=== PATIENT | female | born 1945 | race Caucasian/White ===

== ENCOUNTER 2019-01-13 07:11 | Inpatient (IN) ==
[2019-01-13] MEDS ORDERED: ACETAMINOPHEN 325 MG TAB PO PRN (10:14)
[2019-01-13] MEDS ORDERED: ONDANSETRON INJ 2 MG/ML 2 ML VIAL IV PRN (10:14)
[2019-01-13] MEDS ORDERED: SODIUM CHLORIDE 0.9% 1000ML 1,000 ML IV SCH ×2 (10:15→11:00)
[2019-01-13] MEDS ORDERED: PIPERACILL/TAZOBAC CONSULT ACTIVE PRN (10:17)
[2019-01-13] MEDS ORDERED: VANCOMYCIN CONSULT ACTIVE PRN (10:17)
[2019-01-13] MEDS ORDERED: VANCOMYCIN HCL 1,000 MG in SODIUM CHLORIDE 0.9% 250 ML IV SCH (10:30)
[2019-01-13] MEDS ORDERED: PIPERACILLIN/TAZOBACTAM 2.25 GM in DEXTROSE 5% 100 ML IV SCH (10:30)
[2019-01-13] MEDS ORDERED: PATIENT'S HEIGHT AND/OR WEIGHT NEEDED SCH (10:30)
[2019-01-13 11:02] LABS: Alanine Aminotransferase 18 U/L (12-78); Albumin Level 2.6 gm/dl (3.4-5.0); Aspartate Aminotransferase 30 U/L (15-37); BUN Creatinine Ratio 12.8 (10-20); Blood Urea Nitrogen 32 mg/dl (7-18); Calcium 10.2 mg/dl (8.5-10.1); Carbon Dioxide 21 mmol/L (21-32); Chloride 109 mmol/L (98-107); Est GFR (African American) 21.5; Est GFR (Non-African American) 18.6; Glucose 132 mg/dl (70-99); INR 1.3 (0.9-1.1); Partial Thromboplastin Ratio 1.2; Partial Thromboplastin Time 33.2 Seconds (21.0-31.0); Potassium 3.1 mmol/L (3.5-5.1); Prothrombin Time 13.4 Seconds (9.0-12.0); Sodium 141 mmol/L (136-145)
[2019-01-13 11:05] LABS: Albumin Globulin Ratio 0.7 (0.9-2); Alkaline Phosphatase 226 U/L (45-117); Bilirubin,Total 0.5 mg/dl (0.2-1); Globulin 3.7 gm/dl (2.5-4.0); Total Protein 6.4 gm/dl (6.4-8.2)
[2019-01-13 11:08] LABS: ALC (manual) 0.58 K/uL (1.2-3.4); Eosinophils # (manual) 0.15 K/uL (0-0.5); Eosinophils % (manual) 0.9 %; Hematocrit (blood only) 36.9 % (37-47); Hemoglobin 12.4 g/dL (12.0-16.0); Lymphocytes # (manual) 0.58 K/uL (1.2-3.4); Lymphocytes % (manual) 3.5 %; Mean Corpuscular Hgb Conc 33.6 g/dL (32-36); Mean Corpuscular Volume 86.6 fL (80-100); Mean Platelet Volume 10.7 fL (7.4-10.4); Monocytes # (manual) 0.43 K/uL (0.11-0.59); Monocytes % (manual) 2.6 %; Platelet Count 50 K/uL (130-400); Platelet Estimate Decreased (Normal); RDW Coefficient of Variation 14.5 % (11.5-14.5); RDW Standard Deviation 45.8 fL (36.4-46.3); Red Blood Count 4.26 M/uL (4.2-5.4); White Blood Count 16.67 K/uL (4.8-10.8)
[2019-01-13 11:09] LABS: Toxic Vacuolation 3+
--- NOTE | 2019-01-13 11:16 | History & Physical Report ---
Date of Service January 13, 2019 Assessment & Plan (1) Severe sepsis: due to UTI, will need to call [facility] tomorrow for urine and blood culture results evidence of organ failure with lactic acidosis, RATNA, hypotension treating aggressively with IV fluids already received total of 4L at [facility], will give 1 liter at 500cc/hr then NSS + 40 of K at 100cc/hr broad spectrum antibiotics with Zosyn, Levaquin, Vancomycin follow blood pressure closely, low threshold to transfer to ICU for pressors patient is mentating fine and MAP is > 65 repeat lactic acid at [address] for adequate UO (2) Lactic acidosis: due to severe sepsis and hypotension initially was 7.9, improved to 3.8 here will repeat at 1400 today (3) Acute kidney injury (nontraumatic): likely due to sepsis, could represent ATN given hypotension most recent Cr is 2.5, was higher at [facility] at 2.7 monitor electrolytes, K low at 3.[address] no need to consult nephrology unless renal function gets worse (4) Hypoxia: acute respiratory failure with hypoxia ABG reportedly showed PaO2 of 58 and was placed on BIPAP normally wears a CPAP at night will continue BIPAP for now, check ABG at 1400 today try to wean off BIPAP during the day while awake per patient's brother she does not wear home oxygen, does not have COPD very well may have obesity hypoventilation (5) Hypokalemia: was low at 2.7 at [facility], given 30mEq of KCl here her K is 3.1 will add 40mEq of KCl to IV fluids, run at 100cc/hr (6) Hypotension: technically not shock since here BP improved with IV fluid challenge will continue to monitor closely if consistently hypotensive then may require vasopressors and ICU transfer (7) Sepsis due to urinary tract infection: see above under severe sepsis (8) Sleep apnea: normally on CPAP (9) Diabetes mellitus: Novolog SS diabetic diet once able to eat monitor for hypoglycemia History of Present Illness Chief Complaint: I feel lethargic Primary Care Provider: Dav Freeman MD 73 yo female with history of morbid obesity, DM type II, obstructive sleep apnea and several cases of UTI and pneumonia, transferred to [facility] from [facility] ED this morning due to signs of severe sepsis and UTI. Apparently she was seen in the ED at [facility] two days ago with symptoms of UTI. She was sent home on Macrobid. Last night her brother brought her to the hospital because she was lethargic, not eating well, had fevers and chills. Her urine was described as foul smelling. She was not reported to have any difficulty breathing. Note that most of the HPI obtained from records from [facility] and the patient's brother because the patient has BIPAP and cannot answer many questions. Patient had a WBC of 16k and Cr was 2.7. Lactic acid was elevated at 7.9. Patient was hypotensive and had aggressive IV hydration with 2L via bolus and then 2 more liters at 500mL/hr and 250mL/hr respectively. She responded well to IV fluids, BP in the 90's systolic and MAP without pressors was > 65. Repeat labs showed lactic acid down to the 3.7 range but Cr was not really improving. K was low at 2.7, given 30mEq of KCl. Magnesium was low and treated with 2gm IV Magnesium. Treated with Rocephin, Vancomycin and then Primaxin IV in the ED. Cultures obtained. A CT of the abdomen/pelvis without contrast done, lots of motion so difficult to read. There were some signs of possible pyelonephritis, could not rule out a distal ureteral stone due to motion. CXR showed atelectasis vs infiltrate. Due to renal failure and severe sepsis, [facility] requested transfer. Upon arrival the patient was stable on BIPAP, saturations in the 90's. HR in the 110-120 range, sinus tachycardia, BP 89-97 systolic, MAP were > 65. Had one peripheral IV site. No fever. STAT labs showed WBC was 16k, down from 21k earlier this morning. Lactic acid 3.8. Cr stable at 2.5, making adequate urine via adkins. K slightly low at 3.1. CXR with possible left lower lobe infiltrate and effusion, poor inspiratory effort. Allergies Allergy/AdvReac Type Severity Reaction Status Date / Time erythromycin base Allergy Unknown UPSET Verified 09/26/14 08:17 STOMACH lisinopril Allergy Unknown HIVES Verified 09/26/14 08:17 SWOLLEN LIPS prednisone Allergy Unknown THRUSH Verified 09/26/14 08:17 Home Medications Home Medications Medication Instructions Recorded Confirmed Type ASCORBIC ACID (VITAMIN C) 500 mg PO BID #0 09/26/14 01/13/19 History ASPIRIN (ASPIRIN EC) 81 mg PO QAM #0 09/26/14 01/13/19 History Alendronate/Cholecalciferol 1 tab PO FRIDAY #0 tab 09/26/14 01/13/19 History (Fosamax+D 70MG/2800 Iu) Amlodipine Besylate 5 mg PO HS #0 09/26/14 01/13/19 History CALCIUM CARBONATE-VITAMIN D 1 tab PO QAM #0 09/26/14 01/13/19 History (CALCIUM 500 + D) CHOLECALCIFEROL (VITAMIN D3) 2,000 unit PO QAM #0 09/26/14 01/13/19 History CYANOCOBALAMIN (VITAMIN B12 500MCG) 500 mcg PO QAM #0 tab 09/26/14 01/13/19 History FAMOTIDINE (PEPCID AC) 10 mg PO QAM #0 09/26/14 01/13/19 History Furosemide 20 mg PO QAM #0 09/26/14 01/13/19 History LORATADINE (ALLERGY RELIEF) 10 mg PO QAM #0 09/26/14 01/13/19 History LORAZEPAM 1 mg PO HS #0 09/26/14 01/13/19 History MECLIZINE HCL 25 mg PO QAM #0 09/26/14 01/13/19 History Metformin HCl 500 mg PO BID #0 09/26/14 01/13/19 History Multivitamin 1 tab PO DAILY #0 tab 09/26/14 01/13/19 History Pravastatin Sod (Pravastatin 20 mg PO HS #0 09/26/14 01/13/19 History Sodium) Ropinirole (Requip) 0.5 mg PO HS #0 tab 09/26/14 01/13/19 History TRAVOPROST (TRAVATAN Z) 1 drp OPB HS #0 09/26/14 01/13/19 History Timolol Maleate 0.5% Oph (Timoptic 1 drp OPB BID #0 09/26/14 01/13/19 History 0.5% Oph) Tramadol HCl BID PRN #0 09/26/14 History VITAMIN E 400 intunit PO QAM #0 09/26/14 01/13/19 History Past Med/Surg History Medical History Anxiety Congestive heart failure Diabetes mellitus, type 2 Glaucoma Osteoarthritis Pneumonia Urinary tract infection Surgical History History of cardiac cath History of cataract surgery History of esophagogastroduodenoscopy (EGD) History of herniorrhaphy History of repair of rotator cuff History of total knee replacement Social History Preferred Language: Libyan Communication Ability: Effective Beliefs That Will Affect Care: None Feels Safe at Home: Yes Safety Concerns: Feels Safe At This Time Smoking Status: Never smoker Hx Alcohol Use: No Hx Substance Use: No Review of Systems Review of Systems: Other (unable due to BIPAP, not speaking much) Physical Exam Constitutional: WD/WN, vitals as above + ill appearing, + in distress and + overweight Eyes: PERRL, conjunctivae normal, anicteric sclerae ENMT: external ear and nose normal, oropharynx normal Neck: trachea midline, no thyromegaly Respiratory: + respiratory distress and + labored breathing Auscultation: + diminished lung sounds and + crackles (left base); no rales, no rhonchi and no wheezes Cardiovascular: Rate/Rhythm: regular rhythm and + tachycardic Heart Sounds: normal S1 and normal S2; no murmur Vessels: no JVD Extremities: no edema Gastrointestinal (Abdomen): normal bowel sounds, soft, nontender, no hepatosplenomegaly Musculoskeletal: no cyanosis or clubbing, extremities motor strength 5/5 Skin: no rashes, warm and dry Neurologic: patellar DTR's 2+ bilat, sensation intact and PERRL, EOMI, accommodation nl, no face palsy, no dysarthria Psychiatric: A+Ox3, euthymic affect Lymphatic: no cervical or axillary lymphadenopathy Results & Data Vital Signs (Past 12 Hours) Vital Signs Pulse Resp Pulse Ox 01/13/19 10:28 120 H 43 H 95 Laboratory Results Laboratory Results - last 24 hr 01/13/19 01/13/19 01/13/19 10:29 10:29 10:29 WBC 16.67 H RBC 4.26 Hgb 12.4 Hct 36.9 L MCV 86.6 MCH 29.1 MCHC 33.6 RDW Std Deviation 45.8 RDW Coeff of Fern 14.5 Plt Count 50 L MPV 10.7 H Neutrophils % (Manual) 93.0 Lymphocytes % (Manual) 3.5 Monocytes % (Manual) 2.6 Eosinophils % (Manual) 0.9 Neutrophils # (Manual) 15.50 H Total Absolute Neuts 15.50 H Lymphocytes # (Manual) 0.58 L Total Abs Lymphocytes 0.58 L Monocytes # (Manual) 0.43 Eosinophils # (Manual) 0.15 Blood Smear Review Pending Toxic Vacuolation 3+ Platelet Estimate Decreased L PT INR APTT PTT Ratio Sodium 141 Potassium 3.1 L Chloride 109 H Carbon Dioxide 21 Anion Gap 11.0 BUN 32 H Creatinine 2.50 H Est Cr Clr Drug Dosing Not Reportable Est GFR ( Amer) 21.5 Est GFR (Non-Af Amer) 18.6 BUN/Creatinine Ratio 12.8 Glucose 132 H Lactate 3.8 H* Calcium 10.2 H Total Bilirubin 0.5 AST 30 ALT 18 Alkaline Phosphatase 226 H Total Protein 6.4 Albumin 2.6 L Globulin 3.7 Albumin/Globulin Ratio 0.7 L 01/13/19 10:29 WBC RBC Hgb Hct MCV MCH MCHC RDW Std Deviation RDW Coeff of Fern Plt Count MPV Neutrophils % (Manual) Lymphocytes % (Manual) Monocytes % (Manual) Eosinophils % (Manual) Neutrophils # (Manual) Total Absolute Neuts Lymphocytes # (Manual) Total Abs Lymphocytes Monocytes # (Manual) Eosinophils # (Manual) Blood Smear Review Toxic Vacuolation Platelet Estimate PT 13.4 H INR 1.3 H APTT 33.2 H PTT Ratio 1.2 Sodium Potassium Chloride Carbon Dioxide Anion Gap BUN Creatinine Est Cr Clr Drug Dosing Est GFR ( Amer) Est GFR (Non-Af Amer) BUN/Creatinine Ratio Glucose Lactate Calcium Total Bilirubin AST ALT Alkaline Phosphatase Total Protein Albumin Globulin Albumin/Globulin Ratio Diagnostic Findings SINGLE VIEW CHEST CLINICAL HISTORY: Hypoxia. Pneumonia. FINDINGS: An AP, portable, upright chest radiograph is obtained. No prior studies are available for comparison at the time of dictation. The examination is degraded by portable technique and patient rotation. The heart is enlarged and there is atherosclerotic calcification of the thoracic aorta. There is pulmonary vascular congestion. Patchy airspace consolidation is stable left lung base and there is a left pleural effusion. Trace pleural effusion is suspected on the right. No pneumothorax is seen. The skeletal structures are osteopenic. There are healed left-sided rib fractures. Advanced arthritic change is noted in the right shoulder. IMPRESSION: 1. Cardiomegaly with evidence of congestive failure. 2. There is patchy airspace consolidation at the left lung base and a left pleural effusion. Correlate clinically for evidence of superimposed pneumonia/aspiration pneumonitis. Radiographic follow-up to resolution is recommended. Medications Administered Current Inpatient Medications Acetaminophen (Tylenol) 650 mg PO Q4H PRN PRN Reason: Pain or Fever Stop: 02/12/19 10:13 Heparin Sodium (Porcine) (Heparin Sodium (Porcine)) 5,000 units SQ Q8 HINA Stop: 02/12/19 13:59 Piperacillin Sod/Tazobactam (Sod 2.25 gm/ Dextrose) 110 mls @ 27.5 mls/hr IV Q6H HINA; Protocol Stop: 01/23/19 10:29 Vancomycin HCl 1,000 mg/ (Sodium Chloride) 270 mls @ 125 mls/hr IV Q24H HINA Stop: 01/23/19 10:29 Levofloxacin/Dextrose (Levaquin/D5w) 750 mg in 150 mls @ 100 mls/hr IV Q48H HINA Stop: 01/20/19 10:44 Sodium Chloride (Nss 1000ml) 1,000 mls @ 500 mls/hr IV .Q2H HINA Stop: 01/13/19 12:59 Potassium Chloride 40 meq/ (Sodium Chloride) 1,020 mls @ 100 mls/hr IV .[id number] HINA Stop: 02/12/19 11:29 Insulin Aspart (Novolog Flexpen) 0 units SC ACHS HINA Stop: 02/12/19 11:29 Miscellaneous (Patient's Height And/Or Weight Needed) 1 ea N/A Q2H HINA Stop: 02/12/19 10:29 Miscellaneous Information (Consult) 1 ea N/A UD PRN PRN Reason: Consult Stop: 02/12/19 10:16 Miscellaneous Information (Consult) 1 ea N/A UD PRN PRN Reason: Consult Stop: 02/12/19 10:16 Nystatin (Mycostatin) 1 appln EXT Q8 HINA Stop: 02/12/19 13:59 Ondansetron HCl (Zofran) 4 mg IV Q6H PRN PRN Reason: Nausea Stop: 02/12/19 10:13 Code Status & VTE Plan Code Status DNR, DNI per living will that brother provided VTE Prophylaxis Plan VTE Prophylaxis will be ordered: Yes Critical Care Time Critical Care Time: Yes Total Critical Care Time: 70 PG Care Time/CCT Total # of Minutes Spent Total Time Spent with Patient: Total time spent is greater than 50% in coordination of care (as documented) at patient's floor/unit and/or counseling patient: Critical Care Time: Yes Total Critical Care Time: 70
--- NOTE | 2019-01-13 11:20 | XRay Report ---
SINGLE VIEW CHEST CLINICAL HISTORY: Hypoxia. Pneumonia. FINDINGS: An AP, portable, upright chest radiograph is obtained. No prior studies are available for c omparison at the time of dictation. The examination is degraded by portable technique and patient rot ation. The heart is enlarged and there is atherosclerotic calcification of the thoracic aorta. There is pulmonary vascular congestion. Patchy airspace consolidation is stable left lung base and there i s a left pleural effusion. Trace pleural effusion is suspected on the right. No pneumothorax is seen. The skeletal structures are osteopenic. There are healed left-sided rib fractures. Advanced arthriti c change is noted in the right shoulder. IMPRESSION: 1. Cardiomegaly with evidence of congestive failure. 2. There is patchy airspace consolidation at the left lung base and a left pleural effusion. Correlat e clinically for evidence of superimposed pneumonia/aspiration pneumonitis. Radiographic follow-up to resolution is recommended. Electronically signed by: Jeremias Soria M.D. 01/13/2019 11:18 AM
--- NOTE | 2019-01-13 12:49 | Pharmacy Report ---
Pharmacy Abx Dose Short Note - Date of Service January 13, 2019 - Assessment & Plan Assessment 73 year old F receiving vancomycin and Zosyn for treatment of possible urosepsis and pneumonia. Patient was seen at [facility] 2 days ago for UTI (discharged on macrobid) and returned to the ED there last evening. Per [facility], the original urine culture is growing a klebsiella pneumoniae resistant to ampicillin and intermediate to macrobid. The patient also received rocephin 2g @~2300 last evening, vanc 1000mg @~0130 this morning, and primaxin ~0400 this morning. I discussed with Dr. Varma and we will delay zosyn initiation given renal function and administration of broad spectrum antibiotics at [facility]. I will also order a random vancomycin level to help guide dosing. Day # 1 of antimicrobial therapy. Plan Vancomycin * Random level: pending Pharmacy will continue to follow and will adjust dose/frequency as necessary. Thank you.
[2019-01-13] MEDS ORDERED: CARBOHYDRATES FOR HYPOGLYCEMIA PO PRN (13:15)
[2019-01-13] MEDS ORDERED: GLUCOSE 40% GEL 15 GM TUBE PO PRN (13:15)
[2019-01-13] MEDS ORDERED: GLUCOSE 10 TABS/TUBE PO PRN (13:15)
[2019-01-13] MEDS ORDERED: DEXTROSE 50% 50 ML SYRINGE IV PRN (13:15)
[2019-01-13] MEDS ORDERED: GLUCAGON FOR INJ 1 MG VIAL IM PRN (13:15)
[2019-01-13] MEDS: NYSTATIN OINT 15 GM TUBE EXT SCH ×2 (13:54→21:20)
[2019-01-13] MEDS: INSULIN ASPART 100 UNITS/ML 3 ML PEN SC SCH ×3 (13:54→21:07)
[2019-01-13] MEDS: LEVOFLOXACIN/D5W 750 MG/150 ML BAG IV SCH (14:01)
[2019-01-13] MEDS: POTASSIUM CHLORIDE 40 MEQ in SODIUM CHLORIDE 0.9% 1000ML 1,000 ML IV SCH (14:01)
--- NOTE | 2019-01-13 14:27 | Pharmacy Report ---
Pharmacy Abx Dose Short Note - Date of Service January 13, 2019 - Assessment & Plan Assessment see previous note from 01/13 Plan Vancomycin- random level 12.5 mcg/mL which is slightly subtherapeutic Patient's last dose of 1 g was given approx. 0130 per report. Dose is ~9.5 mg/kg and would estimate a peak level of 15.3 (using vdf 0.6). Using this predicted peak and measured random would estimate a ke of 0.02 and T1/2 of 32 hours. Therefore will dose based on levels at this time. Will give a 1 x dose of 1000 mg, predict peak ~27 and patient would still be therapeutic tomorrow morning. Will get random level in AM. Pharmacy will continue to follow and will adjust dose/frequency as necessary. Thank you.
[2019-01-13] MEDS ORDERED: VANCOMYCIN HCL 1,000 MG in SODIUM CHLORIDE 0.9% 250 ML IV ONE (14:30)
[2019-01-13] MEDS: HEPARIN SOD 5,000 UNIT/0.5 ML VIAL SQ SCH (14:51)
[2019-01-13 14:57] LABS: Base Excess ABG -6.7 mEq/L (-9-1.8); HCO3 ABG 17 mmol/L (19-24); PCO2 ABG 28 mmHg (35-46); PO2 ABG 89 mm/Hg (80-95); pH ABG 7.39 (7.35-7.45)
[2019-01-13 15:00] LABS: Allen Test Pos (Pos)
[2019-01-13] MEDS ORDERED: PIPERACILLIN/TAZOBACTAM 4.5 GM in DEXTROSE 5% 100 ML IV ONE (18:00)
--- NOTE | 2019-01-13 21:54 | Progress Note ---
Date of Service January 13, 2019 Received text page from the patient's nurse that lab results were now available from [facility]. By report: - Aerobic and anaerobic preliminary blood culture results have shown gram negative bacilli. - Urine culture grew Klebsiella pneumonia with E. coli with colony count greater than 100,000. Overall patient's nurse says that the patient is doing okay at present. In brief review of the chart, patient is already on vancomycin, Zosyn, and Levaquin. Cheikh Sheehan, PGY3 Overnight call Results & Data Vital Signs (Past 12 Hours) Vital Signs Temp Pulse Pulse Resp BP BP BP 01/13/19 21:36 99 H 28 H 01/13/19 19:40 36.7 C 104 H 18 133/67 01/13/19 15:29 104 H 01/13/19 15:12 36.7 C 108 H 37 H 118/72 01/13/19 14:03 102 H 40 H 01/13/19 12:00 116 H 39 H 101/55 L 01/13/19 11:30 115 H 36 H 94/58 L 01/13/19 11:25 115 H 41 H 90/56 L 01/13/19 10:47 118 H 35 H 89/47 L 01/13/19 10:46 121 H 36 H 88/53 L 01/13/19 10:36 120 H 40 H 01/13/19 10:28 120 H 43 H 01/13/19 10:14 37.4 C 122 H 26 H 89/54 L Pulse Ox 01/13/19 21:36 94 01/13/19 19:40 96 01/13/19 15:29 01/13/19 15:12 97 01/13/19 14:03 97 01/13/19 12:00 97 01/13/19 11:30 96 01/13/19 11:25 96 01/13/19 10:47 96 01/13/19 10:46 97 01/13/19 10:36 95 01/13/19 10:28 95 01/13/19 10:14 97
[2019-01-14] MEDS: POTASSIUM CHLORIDE 40 MEQ in SODIUM CHLORIDE 0.9% 1000ML 1,000 ML IV SCH (00:31)
[2019-01-14] MEDS ORDERED: PIPERACILLIN/TAZOBACTAM 4.5 GM in DEXTROSE 5% 100 ML IV SCH (02:00)
[2019-01-14] MEDS: NYSTATIN OINT 15 GM TUBE EXT SCH ×3 (05:27→21:46)
[2019-01-14 06:05] LABS: Hematocrit (blood only) 38.4 % (37-47); Hemoglobin 12.9 g/dL (12.0-16.0); Mean Corpuscular Hgb Conc 33.6 g/dL (32-36); Mean Corpuscular Volume 88.7 fL (80-100); RDW Coefficient of Variation 14.9 % (11.5-14.5); RDW Standard Deviation 48.5 fL (36.4-46.3); Red Blood Count 4.33 M/uL (4.2-5.4); White Blood Count 24.07 K/uL (4.8-10.8)
[2019-01-14 06:11] LABS: Mean Platelet Volume 10.8 fL (7.4-10.4); Platelet Count 39 K/uL (130-400)
[2019-01-14 06:41] LABS: Albumin Globulin Ratio 0.6 (0.9-2); Albumin Level 2.5 gm/dl (3.4-5.0); BUN Creatinine Ratio 16.7 (10-20); Bilirubin,Total 0.6 mg/dl (0.2-1); Calcium 9.1 mg/dl (8.5-10.1); Creatinine Clr Calc Pharmacy 31.8 ml/min; Est GFR (African American) 34.1; Est GFR (Non-African American) 29.4; Globulin 3.9 gm/dl (2.5-4.0); Potassium 3.6 mmol/L (3.5-5.1); Total Protein 6.4 gm/dl (6.4-8.2)
[2019-01-14 06:51] LABS: ALC (manual) 2.02 K/uL (1.2-3.4); Dohle Bodies 1+; Lymphocytes # (manual) 2.02 K/uL (1.2-3.4); Lymphocytes % (manual) 8.4 %; Metamyelocytes # (manual) 0.82 K/uL (0-0); Metamyelocytes % (manual) 3.4 %; Monocytes % (manual) 2.5 %; Neutrophils % (manual) 85.7 %; Toxic Vacuolation 2+
[2019-01-14] MEDS ORDERED: VANCOMYCIN HCL 1,500 MG in SODIUM CHLORIDE 0.9% 500 ML IV ONE (08:30)
[2019-01-14] MEDS: INSULIN ASPART 100 UNITS/ML 3 ML PEN SC SCH ×4 (08:46→21:49)
--- NOTE | 2019-01-14 11:52 | Hospitalist Progress Note ---
Date of Service January 14, 2019 Assessment & Plan (1) Severe sepsis: due to UTI urine culture from [facility] growing Klebsiella and E coli, will follow up on final results evidence of organ failure with lactic acidosis, RATNA, hypotension all at time of admission treated aggressively with IV fluids received 4L at [facility] prior to transfer, additional 3 liters here, she is adequately volume resuscitated stop fluids today broad spectrum antibiotics with Zosyn, Levaquin, Vancomycin continue all three today, likely taper tomorrow lactic acid down to 1.4 today Blood pressure actually elevated, resume BP medications, Lasix later no evidence of shock (2) Lactic acidosis: due to severe sepsis and hypotension initially was 7.9, improved to 3.8 here this morning it is 1.4, thus the acidosis is resolved (3) Acute kidney injury (nontraumatic): likely due to sepsis, could represent ATN given hypotension however, quick improvement points more towards prerenal azotemia Cr was 2.5 at time of transfer to [facility] Cr down to 1.7 today stop fluids, give dose of Lasix later today to help mobilize fluids (4) Hypoxia: acute respiratory failure with hypoxia ABG reportedly showed PaO2 of 58 and was placed on BIPAP normally wears a CPAP at night weaned off of BIPAP today breathing easier on nasal canula alot of the tachypnea was likely due to respiratory compensation for metabolic acidosis continue to monitor (5) Hypokalemia: was low at 2.7 at [facility], given 30mEq of KCl K was 3.1 on transfer up to 3.6 today (6) Hypotension: technically not shock since here BP improved with IV fluid challenge BP actually elevated today, can resume home BP meds (7) Sepsis due to urinary tract infection: see above under severe sepsis (8) Sleep apnea: normally on CPAP (9) Diabetes mellitus: Novolog diabetic diet monitor for hypoglycemia (10) Elevated troponin: no chest pain, no changes on echocardiogram this likely represents some demand cardiac ischemia, not ACS treat with supportive care consult PT/OT Subjective patient appears much more comfortable today she is wearing nasal canula, no respiratory distress able to eat some breakfast this morning has a mild cough, not much sputum no abdominal pain, no nausea, some loose stools over night no fever or chills reviewed chart, [facility] reported that urine culture growing Klebsiella and E coli will follow up on sensitivities reviewed labs, Cr improved to 1.7, K is 3.6 WBC went up slightly to 25k, will continue to follow lactic acid now normal at 1.9 troponin 0.68, never had any chest pain Review of Systems Review of Systems: All systems reviewed & are unremarkable except as noted in HPI & below Constitutional: + fatigue and + weakness; no fever, no chills and no sweats Respiratory: + cough and + dyspnea; no wheezing Cardiovascular: no chest pain, no palpitations and no edema Gastrointestinal: + diarrhea/loose stools; no abdominal pain, no nausea, no vomiting and no constipation Physical Exam Constitutional: WD/WN, vitals as above not in distress Eyes: PERRL, conjunctivae normal, anicteric sclerae ENMT: external ear and nose normal, oropharynx normal Neck: trachea midline, no thyromegaly Respiratory: normal respiratory effort (slightly fast) Auscultation: + diminished lung sounds and + crackles (left base); no rales, no rhonchi and no wheezes Cardiovascular: Rate/Rhythm: regular rhythm and + tachycardic Heart Sounds: normal S1 and normal S2; no murmur Vessels: no JVD Extremities: no edema Gastrointestinal (Abdomen): normal bowel sounds, soft, nontender, no hepatosplenomegaly Musculoskeletal: no cyanosis or clubbing, extremities motor strength 5/5 Skin: no rashes, warm and dry Neurologic: patellar DTR's 2+ bilat, sensation intact and PERRL, EOMI, accommodation nl, no face palsy, no dysarthria Psychiatric: A+Ox3, euthymic affect Lymphatic: no cervical or axillary lymphadenopathy Results & Data Vital Signs (Past 12 Hours) Vital Signs Temp Pulse Pulse Resp BP BP Pulse Ox 01/14/19 11:14 36.9 C 106 H 35 H 157/91 H 97 01/14/19 08:00 112 H 01/14/19 07:23 106 H 30 H 135/68 96 01/14/19 04:55 90 28 H 96 01/14/19 03:31 36.8 C 102 H 20 145/80 H 98 01/14/19 01:48 98 H 32 H 96 01/14/19 00:06 01/14/19 00:00 88 32 H 97 Pulse Ox 01/14/19 11:14 01/14/19 08:00 07/11/19 07:23 01/14/19 04:55 01/14/19 03:31 01/14/19 01:48 01/14/19 00:06 98 01/14/19 00:00 Laboratory Results Laboratory Results - last 24 hr 01/13/19 01/13/19 01/13/19 13:17 13:50 14:44 WBC RBC Hgb Hct MCV MCH MCHC RDW Std Deviation RDW Coeff of Fern Plt Count MPV Neutrophils % (Manual) Lymphocytes % (Manual) Monocytes % (Manual) Metamyelocytes % (Man) Neutrophils # (Manual) Total Absolute Neuts Lymphocytes # (Manual) Total Abs Lymphocytes Monocytes # (Manual) Metamyelocytes # (Man) Toxic Vacuolation Dohle Bodies ABG pH ABG pCO2 ABG pO2 ABG HCO3 ABG O2 Saturation ABG Base Excess Benjamin Test Barometric Pressure Oxygen Given Sodium Potassium Chloride Carbon Dioxide Anion Gap BUN Creatinine Est Cr Clr Drug Dosing Est GFR ( Amer) Est GFR (Non-Af Amer) BUN/Creatinine Ratio Glucose POC Glucose 136 H Lactate 2.5 H* Calcium Total Bilirubin AST ALT Alkaline Phosphatase Troponin I Total Protein Albumin Globulin Albumin/Globulin Ratio Nasal Screen MRSA (PCR) Stl C. diff Tox B Gene Random Vancomycin 12.5 01/13/19 01/13/19 01/13/19 14:44 14:44 15:08 WBC RBC Hgb Hct MCV MCH MCHC RDW Std Deviation RDW Coeff of Fern Plt Count MPV Neutrophils % (Manual) Lymphocytes % (Manual) Monocytes % (Manual) Metamyelocytes % (Man) Neutrophils # (Manual) Total Absolute Neuts Lymphocytes # (Manual) Total Abs Lymphocytes Monocytes # (Manual) Metamyelocytes # (Man) Toxic Vacuolation Dohle Bodies ABG pH 7.39 ABG pCO2 28 L ABG pO2 89 ABG HCO3 17 L ABG O2 Saturation 97.0 H ABG Base Excess -6.7 Benjamin Test Pos Barometric Pressure 732.1 Oxygen Given 40% Sodium Potassium Chloride Carbon Dioxide Anion Gap BUN Creatinine Est Cr Clr Drug Dosing Est GFR ( Amer) Est GFR (Non-Af Amer) BUN/Creatinine Ratio Glucose POC Glucose Lactate Calcium Total Bilirubin AST ALT Alkaline Phosphatase Troponin I 0.680 H* Total Protein Albumin Globulin Albumin/Globulin Ratio Nasal Screen MRSA (PCR) Positive A Stl C. diff Tox B Gene Random Vancomycin 01/13/19 01/13/19 01/13/19 16:20 20:24 Unknown WBC RBC Hgb Hct MCV MCH MCHC RDW Std Deviation RDW Coeff of Fern Plt Count MPV Neutrophils % (Manual) Lymphocytes % (Manual) Monocytes % (Manual) Metamyelocytes % (Man) Neutrophils # (Manual) Total Absolute Neuts Lymphocytes # (Manual) Total Abs Lymphocytes Monocytes # (Manual) Metamyelocytes # (Man) Toxic Vacuolation Dohle Bodies ABG pH ABG pCO2 ABG pO2 ABG HCO3 ABG O2 Saturation ABG Base Excess Benjamin Test Barometric Pressure Oxygen Given Sodium Potassium Chloride Carbon Dioxide Anion Gap BUN Creatinine Est Cr Clr Drug Dosing Est GFR ( Amer) Est GFR (Non-Af Amer) BUN/Creatinine Ratio Glucose POC Glucose 149 H 114 H Lactate Calcium Total Bilirubin AST ALT Alkaline Phosphatase Troponin I Total Protein Albumin Globulin Albumin/Globulin Ratio Nasal Screen MRSA (PCR) Stl C. diff Tox B Gene Negative Cdiff Gene Random Vancomycin 01/14/19 01/14/19 01/14/19 05:49 05:49 05:49 WBC 24.07 H RBC 4.33 Hgb 12.9 Hct 38.4 MCV 88.7 MCH 29.8 MCHC 33.6 RDW Std Deviation 48.5 H RDW Coeff of Fern 14.9 H Plt Count 39 L MPV 10.8 H Neutrophils % (Manual) 85.7 Lymphocytes % (Manual) 8.4 Monocytes % (Manual) 2.5 Metamyelocytes % (Man) 3.4 Neutrophils # (Manual) 20.63 H Total Absolute Neuts 20.63 H Lymphocytes # (Manual) 2.02 Total Abs Lymphocytes 2.02 Monocytes # (Manual) 0.60 H Metamyelocytes # (Man) 0.82 H Toxic Vacuolation 2+ Dohle Bodies 1+ ABG pH ABG pCO2 ABG pO2 ABG HCO3 ABG O2 Saturation ABG Base Excess Benjamin Test Barometric Pressure Oxygen Given Sodium 145 Potassium 3.6 D Chloride 114 H Carbon Dioxide 22 Anion Gap 9.0 BUN 29 H Creatinine 1.71 H D Est Cr Clr Drug Dosing 31.8 Est GFR ( Amer) 34.1 Est GFR (Non-Af Amer) 29.4 BUN/Creatinine Ratio 16.7 Glucose 83 POC Glucose Lactate Calcium 9.1 Total Bilirubin 0.6 AST 36 ALT 20 Alkaline Phosphatase 144 H Troponin I Total Protein 6.4 Albumin 2.5 L Globulin 3.9 Albumin/Globulin Ratio 0.6 L Nasal Screen MRSA (PCR) Stl C. diff Tox B Gene Random Vancomycin 14.4 01/14/19 01/14/19 01/14/19 05:49 07:26 11:18 WBC RBC Hgb Hct MCV MCH MCHC RDW Std Deviation RDW Coeff of Fern Plt Count MPV Neutrophils % (Manual) Lymphocytes % (Manual) Monocytes % (Manual) Metamyelocytes % (Man) Neutrophils # (Manual) Total Absolute Neuts Lymphocytes # (Manual) Total Abs Lymphocytes Monocytes # (Manual) Metamyelocytes # (Man) Toxic Vacuolation Dohle Bodies ABG pH ABG pCO2 ABG pO2 ABG HCO3 ABG O2 Saturation ABG Base Excess Benjamin Test Barometric Pressure Oxygen Given Sodium Potassium Chloride Carbon Dioxide Anion Gap BUN Creatinine Est Cr Clr Drug Dosing Est GFR ( Amer) Est GFR (Non-Af Amer) BUN/Creatinine Ratio Glucose POC Glucose 91 97 Lactate 1.9 Calcium Total Bilirubin AST ALT Alkaline Phosphatase Troponin I Total Protein Albumin Globulin Albumin/Globulin Ratio Nasal Screen MRSA (PCR) Stl C. diff Tox B Gene Random Vancomycin Diagnostic Findings ECHOCARDIOGRAM normal ventricular size with low normal EF at 50%, no regional wall motion abnormalities concentric LVH, mild Medications Administered Current Inpatient Medications Acetaminophen (Tylenol) 650 mg PO Q4H PRN PRN Reason: Pain or Fever Stop: 02/12/19 10:13 Dextrose (Dextrose 50%) 25 - 50 ml IV UD PRN; Protocol PRN Reason: Hypoglycemia Protocol Stop: 02/12/19 13:14 Glucagon (Glucagen) 1 mg IM UD PRN; Protocol PRN Reason: Hypoglycemia Protocol Stop: 02/12/19 13:14 Glucose (Glucose 40%) 15 - 30 gm PO UD PRN; Protocol PRN Reason: Hypoglycemia Protocol Stop: 02/12/19 13:14 Glucose (Dex4 Glucose) 4 - 8 tabs PO UD PRN; Protocol PRN Reason: Hypoglycemia Protocol Stop: 02/12/19 13:14 Heparin Sodium (Porcine) (Heparin Sodium (Porcine)) 5,000 units SQ Q8 HINA Stop: 02/12/19 13:59 Last Admin: 01/13/19 14:51 Dose: Not Given Documented by: Levofloxacin/Dextrose (Levaquin/D5w) 750 mg in 150 mls @ 100 mls/hr IV Q48H HINA Stop: 01/20/19 13:59 Last Infusion: 01/13/19 16:26 Dose: Infused Documented by: Piperacillin Sod/Tazobactam (Sod 4.5 gm/ Dextrose) 120 mls @ 30 mls/hr IV Q8H HINA; Protocol Stop: 01/24/19 09:59 Insulin Aspart (Novolog Flexpen) 0 units SC ACHS [facility] Stop: 02/12/19 13:14 Last Admin: 01/14/19 08:46 Dose: Not Given Documented by: Miscellaneous (Carbohydrates For Hypoglycemia) 15 - 30 gm PO UD PRN PRN Reason: Hypoglycemia Treatment Stop: 02/12/19 13:14 Miscellaneous Information (Consult) 1 ea N/A UD PRN PRN Reason: Consult Stop: 02/12/19 10:16 Miscellaneous Information (Consult) 1 ea N/A UD PRN PRN Reason: Consult Stop: 02/12/19 10:16 Nystatin (Mycostatin) 1 appln EXT Q8 HINA Stop: 02/12/19 13:59 Last Admin: 01/14/19 05:27 Dose: 1 appln Documented by: Ondansetron HCl (Zofran) 4 mg IV Q6H PRN PRN Reason: Nausea Stop: 02/12/19 10:13 PG Care Time/CCT Total # of Minutes Spent Total Time Spent with Patient: Total time spent is greater than 50% in coordination of care (as documented) at patient's floor/unit and/or counseling patient:
[2019-01-14] MEDS: PIPERACILLIN/TAZOBACTAM 4.5 GM in DEXTROSE 5% 100 ML IV SCH ×2 (11:54→17:42)
[2019-01-14] MEDS ORDERED: FUROSEMIDE 20 MG in SYRINGE 0 ML IV ONE (13:45)
--- NOTE | 2019-01-14 15:07 | Pharmacy Report ---
Pharmacy Abx Dose Short Note - Date of Service January 14, 2019 - Assessment & Plan Assessment 73 year old F receiving vancomycin/levaquin and zosyn for treatment of UTI and pulmonary source. MRSA nasal swab was positive. Day # 2 of antimicrobial therapy. Renal function improved today. However, until a more consistent CrCl trend can be established, will continue to dose by levels. I will give a larger mg/kg dose this morning and check a repeat random with AM labs. Plan Vancomycin * Random level this morning was 14.4 mcg/mL. * Redose with 1500mg this morning (~0845) * Random level ordered for: 01/15/19 aM labs Pharmacy will continue to follow and will adjust dose/frequency as necessary. Thank you.
[2019-01-14] MEDS: TIMOLOL MALEATE 0.5% OP SOLN 5 ML BTL OPB SCH (21:45)
[2019-01-14] MEDS: TRAVOPROST Z 0.004% OPH SOLN 2.5 ML BTL OPB SCH (21:45)
[2019-01-14] MEDS: AMLODIPINE BESYLATE 5 MG TAB PO SCH (21:46)
[2019-01-14] MEDS: PRAVASTATIN SOD 20 MG TAB PO SCH (21:47)
[2019-01-14] MEDS: ROPINIROLE HCL 0.25 MG TABLET PO SCH (21:47)
[2019-01-15] MEDS: PIPERACILLIN/TAZOBACTAM 4.5 GM in DEXTROSE 5% 100 ML IV SCH ×3 (02:36→17:25)
[2019-01-15 06:23] LABS: Hemoglobin 12.7 g/dL (12.0-16.0); Mean Corpuscular Hgb Conc 33.4 g/dL (32-36); Mean Corpuscular Volume 87.6 fL (80-100); Platelet Count 49 K/uL (130-400); RDW Coefficient of Variation 14.6 % (11.5-14.5); RDW Standard Deviation 47.1 fL (36.4-46.3); Red Blood Count 4.34 M/uL (4.2-5.4); White Blood Count 30.39 K/uL (4.8-10.8)
[2019-01-15] MEDS: NYSTATIN OINT 15 GM TUBE EXT SCH ×3 (06:36→20:47)
[2019-01-15 06:51] LABS: Albumin Level 2.4 gm/dl (3.4-5.0); BUN Creatinine Ratio 18.1 (10-20); Calcium 8.6 mg/dl (8.5-10.1); Creatinine Clr Calc Pharmacy 35.8 ml/min; Est GFR (African American) 39.6; Est GFR (Non-African American) 34.2; Magnesium 2.3 mg/dl (1.8-2.4); Potassium 3.1 mmol/L (3.5-5.1)
[2019-01-15 06:53] LABS: Albumin Globulin Ratio 0.6 (0.9-2); Bilirubin,Total 0.7 mg/dl (0.2-1); Globulin 4.1 gm/dl (2.5-4.0); Total Protein 6.5 gm/dl (6.4-8.2)
[2019-01-15 06:58] LABS: ALC (manual) 1.31 K/uL (1.2-3.4); Dohle Bodies 1+; Lymphocytes # (manual) 1.31 K/uL (1.2-3.4); Lymphocytes % (manual) 4.3 %; Monocytes # (manual) 0.52 K/uL (0.11-0.59); Monocytes % (manual) 1.7 %
[2019-01-15] MEDS ORDERED: VANCOMYCIN HCL 1,250 MG in SODIUM CHLORIDE 0.9% 250 ML IV ONE (08:00)
[2019-01-15] MEDS: ASPIRIN 81 MG ECTAB PO SCH (08:04)
--- NOTE | 2019-01-15 08:56 | CT Scan Report ---
ABDOMEN AND PELVIS CT WITHOUT CONTRAST CT DOSE: 1519.47 mGy.cm HISTORY: Urinary tract infection UTI, WBC going up, look for stone, abscess TECHNIQUE: Multiaxial CT images of the abdomen and pelvis were performed without contrast. A dose lo wering technique was utilized adhering to the principles of ALARA. COMPARISON STUDY: CT abdomen and pelvis 01/12/2019 from outside facility FINDINGS: Trace pleural effusions. Mild dependent subsegmental bibasilar opacities suggest atelectasis. No pneu matosis or pneumoperitoneum. Imaged inferior cardiac chambers are unremarkable. Hepatic steatosis. Liver is otherwise unremarkable. Spleen and right adrenal gland are unremarkable. There is mild thickening of the left adrenal gland. Moderate generalized parenchymal atrophy of the p ancreas. Slightly increased density of the gallbladder may reflect gallbladder sludge. There is equiv ocal gallbladder wall thickening. Study is mildly motion degraded. Mild nonspecific bilateral perinep hric stranding. The right kidney and right ureter otherwise unremarkable. There are least 3 nonobstru cting calculi noted about the left kidney measuring up to 7 mm. There is mild to moderate left-sided hydroureteronephrosis secondary to a 7 x 5 x 6 mm calculus of the distal left ureter just proximal to the ureterovesicular junction. Decompressed bladder with Dewey catheter in place. No bowel obstruction or focal bowel wall thickening. Small hiatal hernia. No ascites or mesenteric in flammation. Mild colonic diverticulosis without acute diverticulitis. Terminal ileum and appendix kathleen ear normal. Soft tissues are unremarkable. Dynamic screw about the left femoral neck. Multilevel spon dylitic spurring with facet arthrosis. Grade 1 anterolisthesis L5 on S1, likely secondary to long-sta nding facet arthrosis. IMPRESSION: 1. Mild to moderate left-sided hydroureteronephrosis secondary to a 7 x 5 x 6 mm calculus of the dist al left ureter just proximal to the ureterovesicular junction. 2. Hepatic steatosis. 3. Mild gallbladder distention with equivocal gallbladder wall thickening. This finding could be stephen elated with right upper quadrant abdominal ultrasound if of further clinical concern. 4. No bowel obstruction or bowel wall thickening. Normal appendix. 5. Trace pleural effusions with bibasilar opacities suggestive of atelectasis. 6. Nonobstructing left nephrolithiasis. Electronically signed by: Mamadou Livingston M.D. 01/15/2019 8:55 AM
[2019-01-15] MEDS: INSULIN ASPART 100 UNITS/ML 3 ML PEN SC SCH ×4 (09:24→20:46)
[2019-01-15] MEDS: TIMOLOL MALEATE 0.5% OP SOLN 5 ML BTL OPB SCH ×2 (09:24→20:44)
--- NOTE | 2019-01-15 10:49 | Pharmacy Report ---
Pharmacy Abx Dose Short Note - Date of Service January 15, 2019 - Assessment & Plan Assessment 73 year old F receiving vancomycin/zosyn for treatment of urinary tract infection/sepsis/pulmonary (MRSA + nasal swab) Urine culture from outside hospital growing klebsiella/E. coli per physician report WBC trending upward Day # 3 of antimicrobial therapy. Plan Vancomycin * Random level this morning 17.2, Cr continues to improve but will continue dosing by levels today, possibly start scheduled tomorrow if Cr begins to level * 1250 mg x 1 today * Goal trough level for 15-20 * Random level ordered for 7/13 AM Pharmacy will continue to follow and will adjust dose/frequency as necessary. Thank you.
[2019-01-15] MEDS ORDERED: FUROSEMIDE 20 MG in SYRINGE 0 ML IV ONE (11:01)
--- NOTE | 2019-01-15 11:13 | Urology Consultation ---
Date of Consultation January 15, 2019 Assessment & Plan (1) Calculus of distal left ureter: 73yo F with sepsis related to Klebsiella UTI and distal left ureteral stone, RATNA, pneumonia CT imaging reveals obstructing 7mm distal left ureteral stone, two large left renal calculi; moderate hydronephrosis. Findings reviewed with Dr. Roblero. Given her worsening leukocytosis in the context of an obstructing left distal stone, will proceed with OR for cystoscopy, left Retrograde pyelogram and left stent placement, possible ureteroscopy, ureteral dilation, laser litho, stone basketing depending on findings. Case is considered emergent given the delayed discovery of obstructing stone in the context of urosepsis. Risks and benefits to be reviewed with patient by Dr. Roblero. OR notified. Preoperative CXR and EKG completed previously. Pt receiving Zosyn inpatient, currently infusing. Pt agreeable to above plan of care. History of Present Illness Reason for Consultation: sepsis, obstructing left stone Requesting Physician: Dr. Varma Attending Physician: Ranadll Varma, DO History of Present Illness 73yo F with morbid obesity, DMII, SUZANNA, admitted to [facility], transferred from [facility] with urosepsis, RATNA and pneumonia on 01/13. CT abd/pelvis describes possible distal stone but inconclusive due to motion. She was hypotensive upon arrival, clinically beginning to improve however her WBC continued to climb prompting repeat CT abd/pelvis today which revealed an ob structing 7mm left distal ureteral stone, with moderate hydro. Two left renal calculi also noted. UC&S growing >100,000cfu klebsiella. Patient treated with levaquin and zosyn. On 2LNC for pneumonia. She denies any flank or suprapubic pain. She is tolerating PO well, did consume regular breakfast this AM prior to scan. Adkins draining clear yellow. No previous hx of stones. Never previously evaluated by urologist. Hx of UTIs, but treated with short course abx with prompt response. Hx is somewhat limited due to urgency of consultation. Allergies Allergy/AdvReac Type Severity Reaction Status Date / Time erythromycin base Allergy Unknown UPSET Verified 09/26/14 08:17 STOMACH lisinopril Allergy Unknown HIVES Verified 09/26/14 08:17 SWOLLEN LIPS prednisone Allergy Unknown THRUSH Verified 09/26/14 08:17 Home Medications Home Medications Medication Instructions Recorded Confirmed Type ASCORBIC ACID (VITAMIN C) 500 mg PO BID #0 03/23/15 07/10/19 History ASPIRIN (ASPIRIN EC) 81 mg PO QAM #0 09/26/14 01/13/19 History Alendronate/Cholecalciferol 1 tab PO FRIDAY #0 tab 09/26/14 01/13/19 History (Fosamax+D 70MG/2800 Iu) Amlodipine Besylate 5 mg PO HS #0 09/26/14 01/13/19 History CALCIUM CARBONATE-VITAMIN D 1 tab PO QAM #0 09/26/14 01/13/19 History (CALCIUM 500 + D) CHOLECALCIFEROL (VITAMIN D3) 2,000 unit PO QAM #0 09/26/14 01/13/19 History CYANOCOBALAMIN (VITAMIN B12 500MCG) 500 mcg PO QAM #0 tab 09/26/14 01/13/19 History FAMOTIDINE (PEPCID AC) 10 mg PO QAM #0 09/26/14 01/13/19 History Furosemide 20 mg PO QAM #0 09/26/14 01/13/19 History LORATADINE (ALLERGY RELIEF) 10 mg PO QAM #0 09/26/14 01/13/19 History LORAZEPAM 1 mg PO HS #0 09/26/14 01/13/19 History MECLIZINE HCL 25 mg PO QAM #0 09/26/14 01/13/19 History Metformin HCl 500 mg PO BID #0 09/26/14 01/13/19 History Multivitamin 1 tab PO DAILY #0 tab 09/26/14 01/13/19 History Pravastatin Sod (Pravastatin 20 mg PO HS #0 09/26/14 01/13/19 History Sodium) Ropinirole (Requip) 0.5 mg PO HS #0 tab 09/26/14 01/13/19 History TRAVOPROST (TRAVATAN Z) 1 drp OPB HS #0 09/26/14 01/13/19 History Timolol Maleate 0.5% Oph (Timoptic 1 drp OPB BID #0 09/26/14 01/13/19 History 0.5% Oph) Tramadol HCl BID PRN #0 09/26/14 History VITAMIN E 400 intunit PO QAM #0 09/26/14 01/13/19 History Patient History Medical History Anxiety Congestive heart failure Diabetes mellitus, type 2 Glaucoma Osteoarthritis Pneumonia Urinary tract infection Surgical History History of cardiac cath History of cataract surgery History of esophagogastroduodenoscopy (EGD) History of herniorrhaphy History of repair of rotator cuff History of total knee replacement Social History Preferred Language: Maltese Communication Ability: Effective Beliefs That Will Affect Care: None Feels Safe at Home: Yes Safety Concerns: Feels Safe At This Time Smoking Status: Never smoker Hx Alcohol Use: No Hx Substance Use: No Review of Systems Review of Systems: Denies fever/chills Denies chest pain/SOB Denies n/v Denies abdominal pain Denies Flank pain Denies hematuria, dysuria Physical Exam Physical Exam: A&Ox3 RRR Nasal cannula intact abd obese, nontender on palpation adkins draining clear yellow Results & Data Vital Signs (Past 12 Hours) Vital Signs Temp Pulse Pulse Resp BP Pulse Ox 01/15/19 11:10 76 23 143/77 H 95 01/15/19 08:00 94 H 01/15/19 07:12 37.0 C 94 H 21 143/96 H 97 01/15/19 03:09 36.7 C 76 24 132/80 95 01/14/19 23:16 36.7 C 78 26 H 119/79 96 Laboratory Results Laboratory Results - last 48 hr 01/13/19 01/13/19 01/13/19 10:29 13:17 13:50 WBC RBC Hgb Hct MCV MCH MCHC RDW Std Deviation RDW Coeff of Fern Plt Count MPV Neutrophils % (Manual) Lymphocytes % (Manual) Monocytes % (Manual) Metamyelocytes % (Man) Neutrophils # (Manual) Total Absolute Neuts Lymphocytes # (Manual) Total Abs Lymphocytes Monocytes # (Manual) Metamyelocytes # (Man) Blood Smear Review Toxic Vacuolation Dohle Bodies ABG pH ABG pCO2 ABG pO2 ABG HCO3 ABG O2 Saturation ABG Base Excess Benjamin Test Barometric Pressure Oxygen Given Sodium Potassium Chloride Carbon Dioxide Anion Gap BUN Creatinine Est Cr Clr Drug Dosing Est GFR ( Amer) Est GFR (Non-Af Amer) BUN/Creatinine Ratio Glucose POC Glucose 136 H Lactate Calcium Magnesium Total Bilirubin AST ALT Alkaline Phosphatase Troponin I Total Protein Albumin Globulin Albumin/Globulin Ratio Nasal Screen MRSA (PCR) Stl C. diff Tox B Gene Random Vancomycin 12.5 01/13/19 01/13/19 01/13/19 14:44 14:44 14:44 WBC RBC Hgb Hct MCV MCH MCHC RDW Std Deviation RDW Coeff of Fern Plt Count MPV Neutrophils % (Manual) Lymphocytes % (Manual) Monocytes % (Manual) Metamyelocytes % (Man) Neutrophils # (Manual) Total Absolute Neuts Lymphocytes # (Manual) Total Abs Lymphocytes Monocytes # (Manual) Metamyelocytes # (Man) Blood Smear Review Toxic Vacuolation Dohle Bodies ABG pH 7.39 ABG pCO2 28 L ABG pO2 89 ABG HCO3 17 L ABG O2 Saturation 97.0 H ABG Base Excess -6.7 Benjamin Test Pos Barometric Pressure 732.1 Oxygen Given 40% Sodium Potassium Chloride Carbon Dioxide Anion Gap BUN Creatinine Est Cr Clr Drug Dosing Est GFR ( Amer) Est GFR (Non-Af Amer) BUN/Creatinine Ratio Glucose POC Glucose Lactate 2.5 H* Calcium Magnesium Total Bilirubin AST ALT Alkaline Phosphatase Troponin I 0.680 H* Total Protein Albumin Globulin Albumin/Globulin Ratio Nasal Screen MRSA (PCR) Stl C. diff Tox B Gene Random Vancomycin 01/13/19 01/13/19 01/13/19 15:08 16:20 20:24 WBC RBC Hgb Hct MCV MCH MCHC RDW Std Deviation RDW Coeff of Fern Plt Count MPV Neutrophils % (Manual) Lymphocytes % (Manual) Monocytes % (Manual) Metamyelocytes % (Man) Neutrophils # (Manual) Total Absolute Neuts Lymphocytes # (Manual) Total Abs Lymphocytes Monocytes # (Manual) Metamyelocytes # (Man) Blood Smear Review Toxic Vacuolation Dohle Bodies ABG pH ABG pCO2 ABG pO2 ABG HCO3 ABG O2 Saturation ABG Base Excess Benjamin Test Barometric Pressure Oxygen Given Sodium Potassium Chloride Carbon Dioxide Anion Gap BUN Creatinine Est Cr Clr Drug Dosing Est GFR ( Amer) Est GFR (Non-Af Amer) BUN/Creatinine Ratio Glucose POC Glucose 149 H 114 H Lactate Calcium Magnesium Total Bilirubin AST ALT Alkaline Phosphatase Troponin I Total Protein Albumin Globulin Albumin/Globulin Ratio Nasal Screen MRSA (PCR) Positive A Stl C. diff Tox B Gene Random Vancomycin 01/13/19 01/14/19 01/14/19 Unknown 05:49 05:49 WBC RBC Hgb Hct MCV MCH MCHC RDW Std Deviation RDW Coeff of Fern Plt Count MPV Neutrophils % (Manual) Lymphocytes % (Manual) Monocytes % (Manual) Metamyelocytes % (Man) Neutrophils # (Manual) Total Absolute Neuts Lymphocytes # (Manual) Total Abs Lymphocytes Monocytes # (Manual) Metamyelocytes # (Man) Blood Smear Review Toxic Vacuolation Dohle Bodies ABG pH ABG pCO2 ABG pO2 ABG HCO3 ABG O2 Saturation ABG Base Excess Benjamin Test Barometric Pressure Oxygen Given Sodium 145 Potassium 3.6 D Chloride 114 H Carbon Dioxide 22 Anion Gap 9.0 BUN 29 H Creatinine 1.71 H D Est Cr Clr Drug Dosing 31.8 Est GFR ( Amer) 34.1 Est GFR (Non-Af Amer) 29.4 BUN/Creatinine Ratio 16.7 Glucose 83 POC Glucose Lactate Calcium 9.1 Magnesium Total Bilirubin 0.6 AST 36 ALT 20 Alkaline Phosphatase 144 H Troponin I Total Protein 6.4 Albumin 2.5 L Globulin 3.9 Albumin/Globulin Ratio 0.6 L Nasal Screen MRSA (PCR) Stl C. diff Tox B Gene Negative Cdiff Gene Random Vancomycin 14.4 01/14/19 01/14/19 01/14/19 05:49 05:49 07:26 WBC 24.07 H RBC 4.33 Hgb 12.9 Hct 38.4 MCV 88.7 MCH 29.8 MCHC 33.6 RDW Std Deviation 48.5 H RDW Coeff of Fern 14.9 H Plt Count 39 L MPV 10.8 H Neutrophils % (Manual) 85.7 Lymphocytes % (Manual) 8.4 Monocytes % (Manual) 2.5 Metamyelocytes % (Man) 3.4 Neutrophils # (Manual) 20.63 H Total Absolute Neuts 20.63 H Lymphocytes # (Manual) 2.02 Total Abs Lymphocytes 2.02 Monocytes # (Manual) 0.60 H Metamyelocytes # (Man) 0.82 H Blood Smear Review Toxic Vacuolation 2+ Dohle Bodies 1+ ABG pH ABG pCO2 ABG pO2 ABG HCO3 ABG O2 Saturation ABG Base Excess Benjamin Test Barometric Pressure Oxygen Given Sodium Potassium Chloride Carbon Dioxide Anion Gap BUN Creatinine Est Cr Clr Drug Dosing Est GFR ( Amer) Est GFR (Non-Af Amer) BUN/Creatinine Ratio Glucose POC Glucose 91 Lactate 1.9 Calcium Magnesium Total Bilirubin AST ALT Alkaline Phosphatase Troponin I Total Protein Albumin Globulin Albumin/Globulin Ratio Nasal Screen MRSA (PCR) Stl C. diff Tox B Gene Random Vancomycin 01/14/19 01/14/19 01/14/19 11:18 16:36 20:10 WBC RBC Hgb Hct MCV MCH MCHC RDW Std Deviation RDW Coeff of Fern Plt Count MPV Neutrophils % (Manual) Lymphocytes % (Manual) Monocytes % (Manual) Metamyelocytes % (Man) Neutrophils # (Manual) Total Absolute Neuts Lymphocytes # (Manual) Total Abs Lymphocytes Monocytes # (Manual) Metamyelocytes # (Man) Blood Smear Review Toxic Vacuolation Dohle Bodies ABG pH ABG pCO2 ABG pO2 ABG HCO3 ABG O2 Saturation ABG Base Excess Benjamin Test Barometric Pressure Oxygen Given Sodium Potassium Chloride Carbon Dioxide Anion Gap BUN Creatinine Est Cr Clr Drug Dosing Est GFR ( Amer) Est GFR (Non-Af Amer) BUN/Creatinine Ratio Glucose POC Glucose 97 99 103 H Lactate Calcium Magnesium Total Bilirubin AST ALT Alkaline Phosphatase Troponin I Total Protein Albumin Globulin Albumin/Globulin Ratio Nasal Screen MRSA (PCR) Stl C. diff Tox B Gene Random Vancomycin 01/15/19 01/15/19 01/15/19 05:49 05:49 05:49 WBC 30.39 H* RBC 4.34 Hgb 12.7 Hct 38.0 MCV 87.6 MCH 29.3 MCHC 33.4 RDW Std Deviation 47.1 H RDW Coeff of Fern 14.6 H Plt Count 49 L MPV 12.0 H Neutrophils % (Manual) 94.0 Lymphocytes % (Manual) 4.3 Monocytes % (Manual) 1.7 Metamyelocytes % (Man) Neutrophils # (Manual) 28.57 H Total Absolute Neuts 28.57 H Lymphocytes # (Manual) 1.31 Total Abs Lymphocytes 1.31 Monocytes # (Manual) 0.52 Metamyelocytes # (Man) Blood Smear Review Toxic Vacuolation Dohle Bodies 1+ ABG pH ABG pCO2 ABG pO2 ABG HCO3 ABG O2 Saturation ABG Base Excess Benjamin Test Barometric Pressure Oxygen Given Sodium 144 Potassium 3.1 L Chloride 114 H Carbon Dioxide 22 Anion Gap 8.0 BUN 27 H Creatinine 1.51 H Est Cr Clr Drug Dosing 35.8 Est GFR ( Amer) 39.6 Est GFR (Non-Af Amer) 34.2 BUN/Creatinine Ratio 18.1 Glucose 124 H POC Glucose Lactate Calcium 8.6 Magnesium 2.3 Total Bilirubin 0.7 AST 27 ALT 19 Alkaline Phosphatase 156 H Troponin I Total Protein 6.5 Albumin 2.4 L Globulin 4.1 H Albumin/Globulin Ratio 0.6 L Nasal Screen MRSA (PCR) Stl C. diff Tox B Gene Random Vancomycin 17.2 01/15/19 01/15/19 07:14 11:08 WBC RBC Hgb Hct MCV MCH MCHC RDW Std Deviation RDW Coeff of Fern Plt Count MPV Neutrophils % (Manual) Lymphocytes % (Manual) Monocytes % (Manual) Metamyelocytes % (Man) Neutrophils # (Manual) Total Absolute Neuts Lymphocytes # (Manual) Total Abs Lymphocytes Monocytes # (Manual) Metamyelocytes # (Man) Blood Smear Review Toxic Vacuolation Dohle Bodies ABG pH ABG pCO2 ABG pO2 ABG HCO3 ABG O2 Saturation ABG Base Excess Benjamin Test Barometric Pressure Oxygen Given Sodium Potassium Chloride Carbon Dioxide Anion Gap BUN Creatinine Est Cr Clr Drug Dosing Est GFR ( Amer) Est GFR (Non-Af Amer) BUN/Creatinine Ratio Glucose POC Glucose 122 H 161 H Lactate Calcium Magnesium Total Bilirubin AST ALT Alkaline Phosphatase Troponin I Total Protein Albumin Globulin Albumin/Globulin Ratio Nasal Screen MRSA (PCR) Stl C. diff Tox B Gene Random Vancomycin
[2019-01-15] MEDS ORDERED: ONDANSETRON INJ 2 MG/ML 2 ML VIAL ONE (12:04)
[2019-01-15] MEDS ORDERED: ROCURONIUM BROMIDE 10 MG/ML 5 ML VIAL ONE (12:04)
[2019-01-15] MEDS ORDERED: SUCCINYLCHOLINE CHLORIDE 20 MG/ML 10 ML VIAL ONE (12:04)
[2019-01-15] MEDS ORDERED: PROPOFOL IV EMULSION 10 MG/ML 20 ML VIAL IV ONE (12:04)
[2019-01-15] MEDS ORDERED: fentaNYL citrate 100 MCG/2 ML VIAL ONE (12:04)
[2019-01-15] MEDS ORDERED: LIDOCAINE HCL 2% 2 ML VIAL/AMP(20MG/ML) INFIL ONE (12:04)
--- NOTE | 2019-01-15 12:24 | Hospitalist Progress Note ---
Date of Service January 15, 2019 Assessment & Plan (1) Calculus of distal left ureter: obstructing left ureteral stone seen on CT 01/15/19 no pain at all, no fever d/w urology, tentatively plan for cystoscopy and stent/extraction later today patient ate breakfast this morning around 8am so may not be able to get anesthesia vitals stable, afebrile and no pain so can wait until tomorrow if needed (2) Severe sepsis: due to UTI and left ureteral stone urine culture from [facility] growing Klebsiella and E coli, no further calls yet about sensitivity evidence of organ failure with lactic acidosis, RATNA, hypotension all at time of admission treated aggressively with IV fluids received 4L at [facility] prior to transfer, additional 3 liters here, she is adequately volume resuscitated stop fluids 01/14 broad spectrum antibiotics with Zosyn, Levaquin, Vancomycin no infiltrate seen on CT today, will stop Vanco lactic acid down to 1.4 on 01/14 Blood pressure actually elevated, resume BP medications, Lasix daily no evidence of shock (3) Acute kidney injury (nontraumatic): likely due to sepsis, could represent ATN given hypotension however, quick improvement points more towards prerenal azotemia Cr was 2.5 at time of transfer to [facility] Cr down to 1.5 today stopped fluids on 01/14, start Lasix 20mg IV daily to mobilize fluids (4) Hypoxia: acute respiratory failure with hypoxia ABG reportedly showed PaO2 of 58 and was placed on BIPAP normally wears a CPAP at night weaned off of BIPAP 01/14 breathing well on nasal canula alot of the tachypnea was likely due to respiratory compensation for metabolic acidosis continue to monitor (5) Lactic acidosis: due to severe sepsis and hypotension initially was 7.9, improved to 3.8 here 1.4 on 01/14, thus the acidosis is resolved (6) Hypokalemia: 3.1 today, place on PO replacement (7) Hypotension: technically not shock since here BP improved with IV fluid challenge BP actually elevated now, can resume home BP meds (8) Sepsis due to urinary tract infection: see above under severe sepsis (9) Sleep apnea: normally on CPAP (10) [facility] monitor for hypoglycemia (11) Elevated troponin: no chest pain, no changes on echocardiogram this likely represents some demand cardiac ischemia, not ACS treat with supportive care consult PT/OT Subjective patient feeling a lot better, sitting up in chair today no pain at all in abdomen WBC spiked to 30k today so CT a/p obtained and showed a left ureteral stone, distal showed hydronephrosis urology consulted, tentative plan to try for cystoscopy this afternoon but may not be able to do, ate this morning reviewed labs, Cr down to 1.5, K is 3.1 WBC up to 30k Review of Systems Review of Systems: All systems reviewed & are unremarkable except as noted in HPI & below Constitutional: + fatigue and + weakness; no fever, no chills and no sweats Respiratory: + dyspnea on exertion; no cough, no dyspnea and no wheezing Cardiovascular: no chest pain and no edema Gastrointestinal: no abdominal pain, no nausea, no vomiting, no constipation and no diarrhea/loose stools Physical Exam Constitutional: WD/WN, vitals as above not in distress Eyes: PERRL, conjunctivae normal, anicteric sclerae ENMT: external ear and nose normal, oropharynx normal Neck: trachea midline, no thyromegaly Respiratory: normal respiratory effort (slightly fast) Auscultation: + diminished lung sounds and + crackles (left base); no rales, no rhonchi and no wheezes Cardiovascular: Rate/Rhythm: regular rhythm and + tachycardic Heart Sounds: normal S1 and normal S2; no murmur Vessels: no JVD Extremities: no edema Gastrointestinal (Abdomen): normal bowel sounds, soft, nontender, no hepatosplenomegaly Musculoskeletal: no cyanosis or clubbing, extremities motor strength 5/5 Skin: no rashes, warm and dry Neurologic: patellar DTR's 2+ bilat, sensation intact and PERRL, EOMI, accommodation nl, no face palsy, no dysarthria Psychiatric: A+Ox3, euthymic affect Lymphatic: no cervical or axillary lymphadenopathy Results & Data Vital Signs (Past 12 Hours) Vital Signs Temp Pulse Pulse Resp BP Pulse Ox 01/15/19 11:10 76 23 143/77 H 95 01/15/19 08:00 94 H 01/15/19 07:12 37.0 C 94 H 21 143/96 H 97 01/15/19 03:09 36.7 C 76 24 132/80 95 Laboratory Results Laboratory Results - last 24 hr 01/14/19 01/14/19 01/15/19 16:36 20:10 05:49 WBC RBC Hgb Hct MCV MCH MCHC RDW Std Deviation RDW Coeff of Fern Plt Count MPV Neutrophils % (Manual) Lymphocytes % (Manual) Monocytes % (Manual) Neutrophils # (Manual) Total Absolute Neuts Lymphocytes # (Manual) Total Abs Lymphocytes Monocytes # (Manual) Dohle Bodies Sodium 144 Potassium 3.1 L Chloride 114 H Carbon Dioxide 22 Anion Gap 8.0 BUN 27 H Creatinine 1.51 H Est Cr Clr Drug Dosing 35.8 Est GFR ( Amer) 39.6 Est GFR (Non-Af Amer) 34.2 BUN/Creatinine Ratio 18.1 Glucose 124 H POC Glucose 99 103 H Calcium 8.6 Magnesium 2.3 Total Bilirubin 0.7 AST 27 ALT 19 Alkaline Phosphatase 156 H Total Protein 6.5 Albumin 2.4 L Globulin 4.1 H Albumin/Globulin Ratio 0.6 L Random Vancomycin 01/15/19 01/15/19 01/15/19 05:49 05:49 07:14 WBC 30.39 H* RBC 4.34 Hgb 12.7 Hct 38.0 MCV 87.6 MCH 29.3 MCHC 33.4 RDW Std Deviation 47.1 H RDW Coeff of Fern 14.6 H Plt Count 49 L MPV 12.0 H Neutrophils % (Manual) 94.0 Lymphocytes % (Manual) 4.3 Monocytes % (Manual) 1.7 Neutrophils # (Manual) 28.57 H Total Absolute Neuts 28.57 H Lymphocytes # (Manual) 1.31 Total Abs Lymphocytes 1.31 Monocytes # (Manual) 0.52 Dohle Bodies 1+ Sodium Potassium Chloride Carbon Dioxide Anion Gap BUN Creatinine Est Cr Clr Drug Dosing Est GFR ( Amer) Est GFR (Non-Af Amer) BUN/Creatinine Ratio Glucose POC Glucose 122 H Calcium Magnesium Total Bilirubin AST ALT Alkaline Phosphatase Total Protein Albumin Globulin Albumin/Globulin Ratio Random Vancomycin 17.2 01/15/19 11:08 WBC RBC Hgb Hct MCV MCH MCHC RDW Std Deviation RDW Coeff of Fern Plt Count MPV Neutrophils % (Manual) Lymphocytes % (Manual) Monocytes % (Manual) Neutrophils # (Manual) Total Absolute Neuts Lymphocytes # (Manual) Total Abs Lymphocytes Monocytes # (Manual) Dohle Bodies Sodium Potassium Chloride Carbon Dioxide Anion Gap BUN Creatinine Est Cr Clr Drug Dosing Est GFR ( Amer) Est GFR (Non-Af Amer) BUN/Creatinine Ratio Glucose POC Glucose 161 H Calcium Magnesium Total Bilirubin AST ALT Alkaline Phosphatase Total Protein Albumin Globulin Albumin/Globulin Ratio Random Vancomycin Diagnostic Findings CT ABDOMEN/PELVIS IMPRESSION: 1. Mild to moderate left-sided hydroureteronephrosis secondary to a 7 x 5 x 6 mm calculus of the distal left ureter just proximal to the ureterovesicular junction. 2. Hepatic steatosis. 3. Mild gallbladder distention with equivocal gallbladder wall thickening. This finding could be correlated with right upper quadrant abdominal ultrasound if of further clinical concern. 4. No bowel obstruction or bowel wall thickening. Normal appendix. 5. Trace pleural effusions with bibasilar opacities suggestive of atelectasis. 6. Nonobstructing left nephrolithiasis. Medications Administered Current Inpatient Medications Acetaminophen (Tylenol) 650 mg PO Q4H PRN PRN Reason: Pain or Fever Stop: 02/12/19 10:13 Amlodipine Besylate (Norvasc) 5 mg PO HS [facility] Stop: 02/13/19 20:59 Last Admin: 01/14/19 21:46 Dose: 5 mg Documented by: Aspirin (Ecotrin Ectab) 81 mg PO QAM [facility] Stop: 02/14/19 08:59 Last Admin: 01/15/19 08:04 Dose: 81 mg Documented by: Dextrose (Dextrose 50%) 25 - 50 ml IV UD PRN; Protocol PRN Reason: Hypoglycemia Protocol Stop: 02/12/19 13:14 Glucagon (Glucagen) 1 mg IM UD PRN; Protocol PRN Reason: Hypoglycemia Protocol Stop: 02/12/19 13:14 Glucose (Glucose 40%) 15 - 30 gm PO UD PRN; Protocol PRN Reason: Hypoglycemia Protocol Stop: 02/12/19 13:14 Glucose (Dex4 Glucose) 4 - 8 tabs PO UD PRN; Protocol PRN Reason: Hypoglycemia Protocol Stop: 02/12/19 13:14 Heparin Sodium (Porcine) (Heparin Sodium (Porcine)) 5,000 units SQ Q8 [facility] Stop: 02/12/19 13:59 Last Admin: 01/13/19 14:51 Dose: Not Given Documented by: Levofloxacin/Dextrose (Levaquin/D5w) 750 mg in 150 mls @ 100 mls/hr IV Q48H [facility] Stop: 01/20/19 13:59 Last Infusion: 01/13/19 16:26 Dose: Infused Documented by: Piperacillin Sod/Tazobactam (Sod 4.5 gm/ Dextrose) 120 mls @ 30 mls/hr IV Q8H [facility]; Protocol Stop: 01/24/19 09:59 Last Admin: 01/15/19 09:27 Dose: 30 mls/hr Documented by: Insulin Aspart (Novolog Flexpen) 0 units SC ACHS [facility] Stop: 02/12/19 13:14 Last Admin: 01/15/19 09:24 Dose: Not Given Documented by: Miscellaneous (Carbohydrates For Hypoglycemia) 15 - 30 gm PO UD PRN PRN Reason: Hypoglycemia Treatment Stop: 02/12/19 13:14 Miscellaneous Information (Consult) 1 ea N/A UD PRN PRN Reason: Consult Stop: 02/12/19 10:16 Nystatin (Mycostatin) 1 appln EXT Q8 [facility] Stop: 02/12/19 13:59 Last Admin: 01/15/19 06:36 Dose: 1 appln Documented by: Ondansetron HCl (Zofran) 4 mg IV Q6H PRN PRN Reason: Nausea Stop: 02/12/19 10:13 Pravastatin Sodium (Pravachol) 20 mg PO [facility] Stop: 02/13/19 20:59 Last Admin: 01/14/19 21:47 Dose: 20 mg Documented by: Ropinirole HCl (Requip) 0.5 mg PO HS [facility] Stop: 02/13/19 20:59 Last Admin: 01/14/19 21:47 Dose: 0.5 mg Documented by: Timolol Maleate (Timoptic 0.5% Oph) 1 drops OPB BID [facility] Stop: 02/13/19 20:59 Last Admin: 01/15/19 09:24 Dose: 1 drops Documented by: PG Care Time/CCT Total # of Minutes Spent Total Time Spent with Patient: Total time spent is greater than 50% in coordination of care (as documented) at patient's floor/unit and/or counseling patient:
[2019-01-15] MEDS ORDERED: IOTHALAMATE MEGLUMINE II 17.2% 250 ML VIAL ONE (12:33)
--- NOTE | 2019-01-15 12:37 | Anesthesiology Consultation ---
Date of Service January 15, 2019 Assessment & Plan (1) Encounter for pre-operative examination: Chart Review Chart Review: Acceptable Risk for Surgery and Patient NOT seen in Pre Admission Testing Consults Requested none ASA [id number] Proposed Anesthesia Anesthesia Type: General History Surgery Operation Date: 01/15/19 13:00 Proposed Procedures p Cystoscopy, Left Retrograde Pyelogram with Stent Placement, Possible Ureteroscopy and Laser Lithotripsy with Basket Stone Extraction - Pepe Roblero MD Height/Weight Height: 4 ft 11 in Weight: 103.6 kg Allergies Allergy/AdvReac Type Severity Reaction Status Date / Time erythromycin base Allergy Unknown UPSET Verified 01/15/19 12:36 STOMACH lisinopril Allergy Unknown HIVES Verified 01/15/19 12:36 SWOLLEN LIPS prednisone Allergy Unknown THRUSH Verified 01/15/19 12:36 Medications Home Medications Medication Instructions Recorded Confirmed Last Taken ASCORBIC ACID (VITAMIN C) 500 mg PO BID #0 09/26/14 01/13/19 Unknown ASPIRIN (ASPIRIN EC) 81 mg PO QAM #0 09/26/14 01/13/19 Unknown Alendronate/Cholecalciferol 1 tab PO FRIDAY #0 tab 09/26/14 01/13/19 Unknown (Fosamax+D 70MG/2800 Iu) Amlodipine Besylate 5 mg PO HS #0 09/26/14 01/13/19 Unknown CALCIUM CARBONATE-VITAMIN D 1 tab PO QAM #0 09/26/14 01/13/19 Unknown (CALCIUM 500 + D) CHOLECALCIFEROL (VITAMIN D3) 2,000 unit PO QAM #0 09/26/14 01/13/19 Unknown CYANOCOBALAMIN (VITAMIN B12 500MCG) 500 mcg PO QAM #0 tab 09/26/14 01/13/19 Unknown FAMOTIDINE (PEPCID AC) 10 mg PO QAM #0 09/26/14 01/13/19 Unknown Furosemide 20 mg PO QAM #0 09/26/14 01/13/19 Unknown LORATADINE (ALLERGY RELIEF) 10 mg PO QAM #0 09/26/14 01/13/19 Unknown LORAZEPAM 1 mg PO HS #0 09/26/14 01/13/19 Unknown MECLIZINE HCL 25 mg PO QAM #0 09/26/14 01/13/19 Unknown Metformin HCl 500 mg PO BID #0 09/26/14 01/13/19 Unknown Multivitamin 1 tab PO DAILY #0 tab 09/26/14 01/13/19 Unknown Pravastatin Sod (Pravastatin 20 mg PO HS #0 09/26/14 01/13/19 Unknown Sodium) Ropinirole (Requip) 0.5 mg PO HS #0 tab 09/26/14 01/13/19 Unknown TRAVOPROST (TRAVATAN Z) 1 drp OPB HS #0 09/26/14 01/13/19 Unknown Timolol Maleate 0.5% Oph (Timoptic 1 drp OPB BID #0 09/26/14 01/13/19 Unknown 0.5% Oph) Tramadol HCl BID PRN #0 09/26/14 Unknown VITAMIN E 400 intunit PO QAM #0 09/26/14 01/13/19 Unknown Active Medications Generic Name Dose Route Start Last Admin Trade Name Freq PRN Reason Stop Dose Admin Amlodipine Besylate 5 mg 01/14/19 21:00 01/14/19 21:46 Norvasc PO 02/13/19 20:59 5 mg HS [facility] Administration Aspirin 81 mg 01/15/19 09:00 01/15/19 08:04 Ecotrin Ectab PO 02/14/19 08:59 81 mg QAM [facility]INA Administration Heparin Sodium (Porcine) 5,000 units 01/13/19 14:00 01/13/19 14:51 Heparin Sodium (Porcine) SQ 02/12/19 13:59 Not Given Q8 [facility] Levofloxacin/Dextrose 750 mg in 150 mls @ 100 mls/hr 01/13/19 14:00 01/13/19 16:26 Levaquin/D5w IV 01/20/19 13:59 Infused Q48H [facility] Infusion Piperacillin Sod/Tazobactam 120 mls @ 30 mls/hr 01/14/19 10:00 01/15/19 09:27 Sod 4.5 gm/ Dextrose IV 01/24/19 09:59 30 mls/hr Q8H [facility] Administration Protocol Insulin Aspart 0 units 01/13/19 13:15 01/15/19 09:24 Novolog Flexpen SC 02/12/19 13:14 Not Given ACHS [facility] Nystatin 1 appln 01/13/19 14:00 01/15/19 06:36 Mycostatin EXT 02/12/19 13:59 1 appln Q8 [facility] Administration Pravastatin Sodium 20 mg 01/14/19 21:00 01/14/19 21:47 Pravachol PO 02/13/19 20:59 20 mg HS [facility] Administration Ropinirole HCl 0.5 mg 01/14/19 21:00 01/14/19 21:47 Requip PO 02/13/19 20:59 0.5 mg HS [facility] Administration Timolol Maleate 1 drops 01/14/19 21:00 01/15/19 09:24 Timoptic 0.5% Oph OPB 02/13/19 20:59 1 drops BID [facility] Administration NPO Date Last Intake of Fluids: 01/15/19 Time Last Intake of Fluids: 09:00 Date Last Intake of Solids: 01/15/19 Time Last Intake of Solids: 08:00 Past Medical History Medical History Anxiety Congestive heart failure Diabetes mellitus, type 2 Glaucoma Osteoarthritis Pneumonia Urinary tract infection Exercise / Class Metabolic Activity III < 4 Walking/Shop/Light housework Past Surgical History Surgical History History of cardiac cath History of cataract surgery History of esophagogastroduodenoscopy (EGD) History of herniorrhaphy History of repair of rotator cuff History of total knee replacement Past Anesthesia History No Hx of Anesthesia Complications and No Family Hx of Anesthesia Complications History of PONV No Hx of PONV and No Hx of Motion Sickness Social History Smoking Status: Never smoker Hx Alcohol Use: No Hx Substance Use: No Physical Exam Vital Signs Last Vital Signs Temp 36.8 C 01/15/19 12:26 Pulse 84 01/15/19 12:26 Resp 24 01/15/19 12:26 BP 147/90 H 01/15/19 12:26 Pulse Ox 94 01/15/19 12:26 Testing Laboratory Results 01/15/19 05:49 01/15/19 05:49 PT 13.4 Seconds (9.0-12.0) H 01/13/19 10:29 INR 1.3 (0.9-1.1) H 01/13/19 10:29 APTT 33.2 Seconds (21.0-31.0) H 01/13/19 10:29 01/15/19 01/15/19 11:08 07:14 POC Glucose 161 H 122 H Electrocardiogram Date: 01/12/19 Findings: + ST @ pvc
[2019-01-15] MEDS ORDERED: fentaNYL citrate 100 MCG/2 ML VIAL IV PRN (12:40)
[2019-01-15] MEDS ORDERED: ePHEDrine sulfate 50 MG/ML AMP IV PRN (12:40)
[2019-01-15] MEDS ORDERED: ONDANSETRON INJ 2 MG/ML 2 ML VIAL IV PRN (12:40)
[2019-01-15] MEDS ORDERED: ATROPINE SULFATE 0.1 MG/ML 10ML SYR IV PRN (12:40)
--- NOTE | 2019-01-15 13:07 | Operative Report ---
Post Operative Report Pre & Post Diagnosis Operation Date: 01/15/19 13:00 Pre-Op Diagnosis: Left obstructing distal ureteral calculus with hydronephrosis, urinary tract infection, SEPSIS, ACUTE KIDNEY INJURY Postoperative diagnosis: Same. Surgeon: Dr. Pepe Roblero. Anesthesia: General anesthesia with endotracheal ablation. Drains left in place: 6 Nigerian multilength stent on the left-hand side. Specimen sent to pathology: Urine culture after drainage of left kidney, stone fragments for chemical analysis and culture. Findings: Left distal ureteral stone fragmented and removed, stent in good position on fluoroscopic examination at the end of the case. Procedure Operation Date: 01/15/19 13:00 Actual Procedures p Cystoscopy, Left Retrograde Pyelogram with Stent Placement, Possible Ureterosc opy and Laser Lithotripsy with Basket Stone Extraction - Pepe Roblero MD Brief history: Patient is a comorbid 73-year-old female who was admitted to [facility] 2 days ago for suspected urosepsis and lactic acidosis. She was transferred from an outside facility. She was found to have relatively sensitive Klebsiella in the urine per outside facility and a question of left-sided hydronephrosis and a distal ureteral stone on original CT scan. Patient was improving clinically but her white count continued to rise and she continued to remain somewhat clinically labile despite broad-spectrum antibiotic coverage. CT scan was repeated and is confirmed a possible left- sided distal ureteral stone with hydronephrosis. Seen her ongoing urinary source sepsis she is being brought to the operating room acutely to decompress her left collecting system. Seen that her creatinine is somewhat improved and she has been covered with antibiotics for the past 48 hours as well as the fact that her stone is in the distal location we will see if this can also be removed today and a prompt and atraumatic fashion. Risks and benefits of intervention are reviewed with the patient vocalizes good understanding of the treatment plan. Informed consent reviewed with the patient today. Procedure: Patient was properly identified and brought into the operative suite after identification of appropriate consent of the chart. General anesthesia with endotracheal the patient was initiated patient was prepped and draped in the standard fashion for this procedure. Full timeout procedure was followed. 22 Nigerian rigid cystoscope was passed into the bladder under direct visualization and bladder was surveyed. This demonstrated no intravesical tumors or calculi but diffuse erythema consistent with urinary tract infection. Ureteral orifice ease were in the normal anatomic location was somewhat obscured by edema of the trigone. Left-sided ureteral orifice was identified and gentle retrograde pyelography was attempted but contrast did not proceed cephalad likely due to the patient's obstructing stone. Stone was not readily seen on fluoroscopic images. Sensor tip wire was able to be navigated past the stone and up to the level of the left kidney. Cystoscope was backloaded and a semirigid ureteroscope was introduced per urethra. Over a working wire this was introduced into the distal left ureter. A stone consistent with the patient's CT scan report was discovered. Using a 270 m labor this was fractured into small pieces and noted to be quite fragile. 0 tip basket was used to obtain pieces to be sent for culture and chemical analysis. After this was complete some debris was appreciated within the ureter without significant obstructing calculi. Ureteroscope was removed and cystoscope was backloaded over the safety wire. A 6 Nigerian multilength ureteral catheter was placed with redundant coils being present at the level of the renal pelvis and within the bladder. Hydronephrotic drip of mildly purulent urine was appreciated and urine aliquot was sent for culture. Bladder was drained and cystoscope was removed. 16 Nigerian Dewey catheter was placed with 10 cc of sterile water in the balloon. Anesthesia was reversed and patient was transferred to the recovery room in stable condition. Follow-up CARE: Patient will be readmitted to the floor for further medical management of her urosepsis. Surgeon Pepe Roblero MD Mechanical Reliability Engineer None Estimated Blood Loss 0 Findings Consistent with Post-Op Diagnosis Specimens Urine culture after drainage of left kidney, stone material for culture and chemical analysis. Description of Procedure Cystoscopy, left attempted retrograde pyelography, left semirigid ureteroscopy with laser lithotripsy, basket stone extraction and ureteral stent placement. I attest to the content of the Intraoperative Record and any orders documented therein. Any exceptions are noted below.
[2019-01-15] MEDS ORDERED: ePHEDrine sulfate 50 MG/ML SYR ONE (13:12)
[2019-01-15] MEDS ORDERED: PHENYLEPHRINE 100MCG/ML 5ML SYR ONE (13:12)
--- NOTE | 2019-01-15 13:54 | Fluoroscopy Report ---
FL retrograde includes kub HISTORY: 73 years-old Female CYSTO LASER left-sided cystourethrogram COMPARISON: CT abdomen and pelvis 01/15/2019 TECHNIQUE: 2 spot fluoroscopic images of the abdomen were obtained utilizing 46.2 seconds fluoroscopy time FINDINGS: A left ureteral stent has been placed, the proximal portion of the stent appearing to be in satisfact ory positioning. The distal portion of the stent is not imaged. The previously noted distal left uret eral calculus is better seen on comparison CT. Hardware of the left hip, partially imaged. IMPRESSION: Fluoroscopic assistance as above. Please see procedural report for further details. The above report was generated using voice recognition software. It may contain grammatical, syntax o r spelling errors. Electronically signed by: Mamadou Livingston M.D. 01/15/2019 1:53 PM
--- NOTE | 2019-01-15 14:37 | Anesthesiology Progress Note ---
Date of Service January 15, 2019 Anesthesia Post Procedure Vital Signs Vital Signs: Temp Pulse Pulse Pulse Pulse Resp BP 01/15/19 14:30 36.7 C 80 29 H 150/92 H 01/15/19 14:20 79 28 H 124/75 01/15/19 14:10 78 31 H 130/75 01/15/19 14:00 82 36 H 124/71 01/15/19 13:54 37.1 C 84 21 93/68 L 01/15/19 12:26 36.8 C 84 24 01/15/19 11:10 76 23 143/77 H 01/15/19 08:00 94 H 01/15/19 07:12 37.0 C 94 H 21 143/96 H 01/15/19 03:09 36.7 C 76 24 132/80 01/14/19 23:16 36.7 C 78 26 H 119/79 01/14/19 18:44 36.7 C 94 H 26 H 158/76 H 01/14/19 17:45 102 H 01/14/19 15:43 36.7 C 94 H 20 161/82 H BP Pulse Ox 01/15/19 14:30 94 01/15/19 14:20 94 01/15/19 14:10 96 01/15/19 14:00 93 01/15/19 13:54 93 01/15/19 12:26 147/90 H 94 01/15/19 11:10 95 01/15/19 08:00 01/15/19 07:12 97 01/15/19 03:09 95 01/14/19 23:16 96 01/14/19 18:44 96 01/14/19 17:45 01/14/19 15:43 95 Transfer of Care Handoff Completed per policy Notes Mental Status: alert / awake / arousable and participated in evaluation Patient Amnestic to Procedure: Yes Nausea / Vomiting: adequately controlled Pain: adequately controlled Airway Patency, RR, SpO2: stable & adequate BP & HR: stable & adequate Hydration State: stable & adequate Anesthetic Complications: no major complications apparent and Pt Satisfied with anesthetic care
[2019-01-15] MEDS: LEVOFLOXACIN/D5W 750 MG/150 ML BAG IV SCH (14:56)
[2019-01-15] MEDS: ROPINIROLE HCL 0.25 MG TABLET PO SCH (20:44)
[2019-01-15] MEDS: PRAVASTATIN SOD 20 MG TAB PO SCH (20:45)
[2019-01-15] MEDS: TRAVOPROST Z 0.004% OPH SOLN 2.5 ML BTL OPB SCH (20:45)
[2019-01-15] MEDS: AMLODIPINE BESYLATE 5 MG TAB PO SCH (20:45)
[2019-01-15] MEDS: HEPARIN SOD 5,000 UNIT/0.5 ML VIAL SQ SCH (21:10)
[2019-01-16] MEDS: PIPERACILLIN/TAZOBACTAM 4.5 GM in DEXTROSE 5% 100 ML IV SCH ×4 (01:59→18:01)
[2019-01-16] MEDS: NYSTATIN OINT 15 GM TUBE EXT SCH ×3 (06:03→21:37)
[2019-01-16] MEDS: HEPARIN SOD 5,000 UNIT/0.5 ML VIAL SQ SCH ×3 (06:03→21:37)
[2019-01-16 06:19] LABS: Hematocrit (blood only) 36.1 % (37-47); Hemoglobin 12.3 g/dL (12.0-16.0); Mean Corpuscular Hgb Conc 34.1 g/dL (32-36); Mean Corpuscular Volume 87.4 fL (80-100); RDW Coefficient of Variation 14.5 % (11.5-14.5); RDW Standard Deviation 46.5 fL (36.4-46.3); Red Blood Count 4.13 M/uL (4.2-5.4); White Blood Count 20.23 K/uL (4.8-10.8)
[2019-01-16 06:27] LABS: Mean Platelet Volume 11.4 fL (7.4-10.4); Platelet Count 60 K/uL (130-400)
[2019-01-16 06:54] LABS: Albumin Level 2.2 gm/dl (3.4-5.0); BUN Creatinine Ratio 21.5 (10-20); Calcium 8.1 mg/dl (8.5-10.1); Creatinine Clr Calc Pharmacy 41.5 ml/min; Est GFR (African American) 47.9; Est GFR (Non-African American) 41.3; Potassium 2.8 mmol/L (3.5-5.1)
[2019-01-16 06:57] LABS: Albumin Globulin Ratio 0.6 (0.9-2); Bilirubin,Total 0.5 mg/dl (0.2-1); Globulin 3.9 gm/dl (2.5-4.0); Total Protein 6.1 gm/dl (6.4-8.2)
[2019-01-16 07:00] LABS: Dohle Bodies 1+; Eosinophils # (manual) 0.18 K/uL (0-0.5); Eosinophils % (manual) 0.9 %; Lymphocytes % (manual) 10.4 %; Monocytes # (manual) 0.87 K/uL (0.11-0.59); Monocytes % (manual) 4.3 %; Neutrophils % (manual) 84.4 %; Platelet Estimate Decreased (Normal)
--- NOTE | 2019-01-16 08:49 | Hospitalist Progress Note ---
Date of Service January 16, 2019 Assessment & Plan (1) Calculus of distal left ureter: obstructing left ureteral stone seen on CT 01/15/19 no pain at all, no fever s/p Cystoscopy, Left Retrograde Pyelogram with Stent Placement, Possible Ureteroscopy and Laser Lithotripsy with Basket Stone Extraction on 01/15 tolerated well, vitals stable WBC down to 20k from 30k (2) Severe sepsis: due to UTI and left ureteral stone urine culture from [facility] growing Klebsiella and E coli, still awaiting sensitivity report evidence of organ failure with lactic acidosis, RATNA, hypotension all at time of admission treated aggressively with IV fluids received 4L at [facility] prior to transfer, additional 3 liters here, she is adequately volume resuscitated stop fluids 01/14 broad spectrum antibiotics with Zosyn, Levaquin, Vancomycin no infiltrate seen on CT, Vanco stopped 01/15 will taper to just Zosyn on 01/16 lactic acid down to 1.4 on 01/14 Blood pressure actually elevated, resume BP medications, Lasix daily no evidence of shock (3) Acute kidney injury (nontraumatic): likely due to sepsis, could represent ATN given hypotension however, quick improvement points more towards prerenal azotemia Cr was 2.5 at time of transfer to [facility] Cr down to 1.29 today RATNA resolved stopped fluids on 01/14, treated with Lasix 20mg IV to mobilize fluid transition to Lasix 20mg PO daily which she takes at home (4) Hypoxia: acute respiratory failure with hypoxia ABG reportedly showed PaO2 of 58 and was placed on BIPAP normally wears a CPAP at night weaned off of BIPAP 01/14 breathing well on nasal canula alot of the tachypnea was likely due to respiratory compensation for metabolic acidosis weaned to room air today, acute hypoxia resolved (5) Lactic acidosis: due to severe sepsis and hypotension initially was 7.9, improved to 3.8 here 1.4 on 01/14, thus the acidosis is resolved (6) Hypokalemia: 2.8 today, likely due to Lasix use start KCl 40mEq TID and repeat K tomorrow (7) Hypotension: technically not shock since here BP improved with IV fluid challenge BP actually elevated now, can resume home BP meds (8) Sepsis due to urinary tract infection: see above under severe sepsis (9) Sleep apnea: normally on CPAP (10) Diabetes mellitus: Novolog diabetic diet monitor for hypoglycemia, no episodes (11) Elevated troponin: no chest pain, no changes on echocardiogram this likely represents some demand cardiac ischemia, not ACS treat with supportive care consult PT/OT plan for rehab at [facility] in [place], this is patient's preference would be ready Friday/Friday transfer to medical floor today Subjective patient feeling great this morning, just finished breakfast no abdominal pain, no nausea no chest pain, no dyspnea, she was titrated off of oxygen reviewed labs, WBC down to 20k from 30k after stone was removed yesterday reviewed op note from Dr. Roblero, appreciate his assistance no fever, vitals stable K is low at 2.8, will replace Cr down to 1.29 so RATNA is resolved Review of Systems Review of Systems: All systems reviewed & are unremarkable except as noted in HPI & below Constitutional: + weakness; no fever, no chills, no sweats and no fatigue Respiratory: no cough and no dyspnea Cardiovascular: no chest pain and no edema Gastrointestinal: no abdominal pain, no nausea, no vomiting, no constipation and no diarrhea/loose stools Physical Exam Constitutional: WD/WN, vitals as above not in distress Eyes: PERRL, conjunctivae normal, anicteric sclerae ENMT: external ear and nose normal, oropharynx normal Neck: trachea midline, no thyromegaly Respiratory: normal respiratory effort (slightly fast) Auscultation: lungs clear to auscultation bilaterally; no crackles, no rales, no rhonchi and no wheezes Cardiovascular: Rate/Rhythm: regular rate and regular rhythm Heart Sounds: normal S1 and normal S2; no murmur Vessels: no JVD Extremities: no edema Gastrointestinal (Abdomen): normal bowel sounds, soft, nontender, no hepatosplenomegaly Musculoskeletal: no cyanosis or clubbing, extremities motor strength 5/5 Skin: no rashes, warm and dry Neurologic: patellar DTR's 2+ bilat, sensation intact and PERRL, EOMI, accommodation nl, no face palsy, no dysarthria Psychiatric: A+Ox3, euthymic affect Lymphatic: no cervical or axillary lymphadenopathy Results & Data Vital Signs (Past 12 Hours) Vital Signs Temp Pulse Resp BP Pulse Ox 01/16/19 07:10 36.6 C 87 37 H 145/77 H 98 01/16/19 03:50 36.8 C 73 20 123/67 96 01/15/19 23:08 36.9 C 72 19 127/73 95 Laboratory Results Laboratory Results - last 24 hr 01/14/19 01/15/19 01/15/19 05:49 11:08 14:05 WBC RBC Hgb Hct MCV MCH MCHC RDW Std Deviation RDW Coeff of Fern Plt Count MPV Neutrophils % (Manual) Lymphocytes % (Manual) Monocytes % (Manual) Eosinophils % (Manual) Neutrophils # (Manual) Total Absolute Neuts Lymphocytes # (Manual) Total Abs Lymphocytes Monocytes # (Manual) Eosinophils # (Manual) Dohle Bodies Platelet Estimate Sodium Potassium Chloride Carbon Dioxide Anion Gap BUN Creatinine Est Cr Clr Drug Dosing Est GFR ( Amer) Est GFR (Non-Af Amer) BUN/Creatinine Ratio Glucose POC Glucose 161 H 112 H Calcium Total Bilirubin AST ALT Alkaline Phosphatase Total Protein Albumin Globulin Albumin/Globulin Ratio Stone Source Stone Weight Stone Composition Stone Composition 2 Major Stone Nidus Blood Type Recheck AB Positive 01/15/19 01/15/19 01/15/19 16:32 20:36 Unknown WBC RBC Hgb Hct MCV MCH MCHC RDW Std Deviation RDW Coeff of Fern Plt Count MPV Neutrophils % (Manual) Lymphocytes % (Manual) Monocytes % (Manual) Eosinophils % (Manual) Neutrophils # (Manual) Total Absolute Neuts Lymphocytes # (Manual) Total Abs Lymphocytes Monocytes # (Manual) Eosinophils # (Manual) Dohle Bodies Platelet Estimate Sodium Potassium Chloride Carbon Dioxide Anion Gap BUN Creatinine Est Cr Clr Drug Dosing Est GFR ( Amer) Est GFR (Non-Af Amer) BUN/Creatinine Ratio Glucose POC Glucose 117 H 178 H Calcium Total Bilirubin AST ALT Alkaline Phosphatase Total Protein Albumin Globulin Albumin/Globulin Ratio Stone Source Pending Stone Weight Pending Stone Composition Pending Stone Composition 2 Pending Major Stone Nidus Pending Blood Type Recheck 01/16/19 01/16/19 01/16/19 05:49 05:49 07:12 WBC 20.23 H D RBC 4.13 L Hgb 12.3 Hct 36.1 L MCV 87.4 MCH 29.8 MCHC 34.1 RDW Std Deviation 46.5 H RDW Coeff of Fern 14.5 Plt Count 60 L MPV 11.4 H Neutrophils % (Manual) 84.4 Lymphocytes % (Manual) 10.4 Monocytes % (Manual) 4.3 Eosinophils % (Manual) 0.9 Neutrophils # (Manual) 17.07 H Total Absolute Neuts 17.07 H Lymphocytes # (Manual) 2.10 Total Abs Lymphocytes 2.10 Monocytes # (Manual) 0.87 H Eosinophils # (Manual) 0.18 Dohle Bodies 1+ Platelet Estimate Decreased L Sodium 145 Potassium 2.8 L Chloride 112 H Carbon Dioxide 24 Anion Gap 8.0 BUN 28 H Creatinine 1.29 H Est Cr Clr Drug Dosing 41.5 Est GFR ( Amer) 47.9 Est GFR (Non-Af Amer) 41.3 BUN/Creatinine Ratio 21.5 H Glucose 155 H POC Glucose 145 H Calcium 8.1 L Total Bilirubin 0.5 AST 15 ALT 17 Alkaline Phosphatase 119 H Total Protein 6.1 L Albumin 2.2 L Globulin 3.9 Albumin/Globulin Ratio 0.6 L Stone Source Stone Weight Stone Composition Stone Composition 2 Major Stone Nidus Blood Type Recheck Medications Administered Current Inpatient Medications Acetaminophen (Tylenol) 650 mg PO Q4H PRN PRN Reason: Pain or Fever Stop: 02/12/19 10:13 Amlodipine Besylate (Norvasc) 5 mg PO HS [facility] Stop: 02/13/19 20:59 Last Admin: 01/15/19 20:45 Dose: 5 mg Documented by: Aspirin (Ecotrin Ectab) 81 mg PO QAM [facility] Stop: 02/14/19 08:59 Last Admin: 01/15/19 08:04 Dose: 81 mg Documented by: Dextrose (Dextrose 50%) 25 - 50 ml IV UD PRN; Protocol PRN Reason: Hypoglycemia Protocol Stop: 02/12/19 13:14 Furosemide (Lasix) 20 mg PO QAM [facility] Stop: 02/15/19 08:59 Glucagon (Glucagen) 1 mg IM UD PRN; Protocol PRN Reason: Hypoglycemia Protocol Stop: 02/12/19 13:14 Glucose (Glucose 40%) 15 - 30 gm PO UD PRN; Protocol PRN Reason: Hypoglycemia Protocol Stop: 02/12/19 13:14 Glucose (Dex4 Glucose) 4 - 8 tabs PO UD PRN; Protocol PRN Reason: Hypoglycemia Protocol Stop: 02/12/19 13:14 Heparin Sodium (Porcine) (Heparin Sodium (Porcine)) 5,000 units SQ Q8 [facility] Stop: 02/12/19 13:59 Last Admin: 01/16/19 06:03 Dose: 5,000 units Documented by: Levofloxacin/Dextrose (Levaquin/D5w) 750 mg in 150 mls @ 100 mls/hr IV Q48H [facility] Stop: 01/20/19 13:59 Last Infusion: 01/15/19 16:32 Dose: Infused Documented by: Piperacillin Sod/Tazobactam (Sod 4.5 gm/ Dextrose) 120 mls @ 30 mls/hr IV Q8H [facility]; Protocol Stop: 01/24/19 09:59 Last Infusion: 01/16/19 06:07 Dose: Infused Documented by: Insulin Aspart (Novolog Flexpen) 0 units SC ACHS [facility] Stop: 02/12/19 13:14 Last Admin: 01/15/19 20:46 Dose: 2 units Documented by: Miscellaneous (Carbohydrates For Hypoglycemia) 15 - 30 gm PO UD PRN PRN Reason: Hypoglycemia Treatment Stop: 02/12/19 13:14 Miscellaneous Information (Consult) 1 ea N/A UD PRN PRN Reason: Consult Stop: 02/12/19 10:16 Nystatin (Mycostatin) 1 appln EXT Q8 [facility] Stop: 02/12/19 13:59 Last Admin: 01/16/19 06:03 Dose: 1 appln Documented by: Ondansetron HCl (Zofran) 4 mg IV Q6H PRN PRN Reason: Nausea Stop: 02/12/19 10:13 Potassium Chloride (Klor-Con M20) 40 meq PO TID [facility] Stop: 02/15/19 08:59 Pravastatin Sodium (Pravachol) 20 mg PO [facility] Stop: 02/13/19 20:59 Last Admin: 01/15/19 20:45 Dose: 20 mg Documented by: Ropinirole HCl (Requip) 0.5 mg PO HS [facility] Stop: 02/13/19 20:59 Last Admin: 01/15/19 20:44 Dose: 0.5 mg Documented by: Timolol Maleate (Timoptic 0.5% Oph) 1 drops OPB BID [facility] Stop: 02/13/19 20:59 Last Admin: 01/15/19 20:44 Dose: 1 drops Documented by: PG Care Time/CCT Total # of Minutes Spent Total Time Spent with Patient: Total time spent is greater than 50% in coordination of care (as documented) at patient's floor/unit and/or counseling patient:
[2019-01-16] MEDS: INSULIN ASPART 100 UNITS/ML 3 ML PEN SC SCH ×4 (08:51→20:31)
[2019-01-16] MEDS: ASPIRIN 81 MG ECTAB PO SCH (08:51)
[2019-01-16] MEDS: FUROSEMIDE 20 MG TAB PO SCH (08:51)
[2019-01-16] MEDS: POTASSIUM CHLORIDE 20 MEQ TABCR PO SCH ×3 (08:51→20:30)
[2019-01-16] MEDS: TIMOLOL MALEATE 0.5% OP SOLN 5 ML BTL OPB SCH ×2 (08:52→20:30)
--- NOTE | 2019-01-16 11:37 | Urology Progress Note ---
Date of Service January 16, 2019 Assessment & Plan (1) Calculus of distal left ureter: obstructing left ureteral stone seen on CT 01/15/19 no pain at all, no fever s/p Cystoscopy, Left Retrograde Pyelogram with Stent Placement, Possible Ureteroscopy and Laser Lithotripsy with Basket Stone Extraction on 01/15 tolerated well, vitals stable WBC down to 20k from 30k (2) Severe sepsis: due to UTI and left ureteral stone urine culture from [facility] growing Klebsiella and E coli, still awaiting sensitivity report evidence of organ failure with lactic acidosis, RATNA, hypotension all at time of admission treated aggressively with IV fluids received 4L at [facility] prior to transfer, additional 3 liters here, she is adequately volume resuscitated stop fluids 01/14 broad spectrum antibiotics with Zosyn, Levaquin, Vancomycin no infiltrate seen on CT, Vanco stopped 01/15 will taper to just Zosyn on 01/16 lactic acid down to 1.4 on 01/14 Blood pressure actually elevated, resume BP medications, Lasix daily no evidence of shock (3) Acute kidney injury (nontraumatic): likely due to sepsis, could represent ATN given hypotension however, quick improvement points more towards prerenal azotemia Cr was 2.5 at time of transfer to [facility] Cr down to 1.29 today RATNA resolved stopped fluids on 01/14, treated with Lasix 20mg IV to mobilize fluid transition to Lasix 20mg PO daily which she takes at home D/C adkins in AM (4) Hypoxia: acute respiratory failure with hypoxia ABG reportedly showed PaO2 of 58 and was placed on BIPAP normally wears a CPAP at night weaned off of BIPAP 01/14 breathing well on nasal canula alot of the tachypnea was likely due to respiratory compensation for metabolic acidosis weaned to room air today, acute hypoxia resolved (5) Lactic acidosis: due to severe sepsis and hypotension initially was 7.9, improved to 3.8 here 1.4 on 01/14, thus the acidosis is resolved (6) Hypokalemia: 2.8 today, likely due to Lasix use start KCl 40mEq TID and repeat K tomorrow (7) Hypotension: technically not shock since here BP improved with IV fluid challenge BP actually elevated now, can resume home BP meds (8) Sepsis due to urinary tract infection: see above under severe sepsis (9) Sleep apnea: normally on CPAP (10) Diabetes mellitus: Novolog diabetic diet monitor for hypoglycemia, no episodes (11) Elevated troponin: no chest pain, no changes on echocardiogram this likely represents some demand cardiac ischemia, not ACS treat with supportive care consult PT/OT plan for rehab at [facility] [place] in [place], this is patient's preference would be ready Friday/Friday transfer to medical floor today Subjective Pt feeling much better. Adkins silmanpreet in ,discussed removing in AM.pt eating Physical Exam Physical Exam: no flank pain adkins in place Results & Data Vital Signs (Past 12 Hours) Vital Signs Temp Pulse Resp BP Pulse Ox 01/16/19 07:10 36.6 C 87 37 H 145/77 H 98 01/16/19 03:50 36.8 C 73 20 123/67 96 Laboratory Results wbc 20
[2019-01-16] MEDS: ROPINIROLE HCL 0.25 MG TABLET PO SCH (20:25)
[2019-01-16] MEDS: PRAVASTATIN SOD 20 MG TAB PO SCH (20:30)
[2019-01-16] MEDS: AMLODIPINE BESYLATE 5 MG TAB PO SCH (20:30)
[2019-01-16] MEDS: TRAVOPROST Z 0.004% OPH SOLN 2.5 ML BTL OPB SCH (20:31)
[2019-01-17] MEDS: PIPERACILLIN/TAZOBACTAM 4.5 GM in DEXTROSE 5% 100 ML IV SCH ×2 (01:55→09:45)
[2019-01-17] MEDS: HEPARIN SOD 5,000 UNIT/0.5 ML VIAL SQ SCH ×3 (06:05→21:46)
[2019-01-17] MEDS: NYSTATIN OINT 15 GM TUBE EXT SCH ×3 (06:06→21:46)
[2019-01-17 06:38] LABS: Albumin Globulin Ratio 0.6 (0.9-2); Albumin Level 2.3 gm/dl (3.4-5.0); Bilirubin,Total 0.5 mg/dl (0.2-1); Calcium 7.6 mg/dl (8.5-10.1); Creatinine Clr Calc Pharmacy 46.6 ml/min; Est GFR (Non-African American) 47.5; Globulin 3.6 gm/dl (2.5-4.0); Total Protein 5.9 gm/dl (6.4-8.2)
[2019-01-17 06:58] LABS: Potassium 3.5 mmol/L (3.5-5.1)
[2019-01-17] MEDS: ASPIRIN 81 MG ECTAB PO SCH (08:14)
[2019-01-17] MEDS: POTASSIUM CHLORIDE 20 MEQ TABCR PO SCH ×3 (08:14→21:45)
[2019-01-17] MEDS: TIMOLOL MALEATE 0.5% OP SOLN 5 ML BTL OPB SCH ×2 (08:15→21:45)
[2019-01-17] MEDS: FUROSEMIDE 20 MG TAB PO SCH (08:15)
[2019-01-17] MEDS: INSULIN ASPART 100 UNITS/ML 3 ML PEN SC SCH ×4 (08:16→21:45)
--- NOTE | 2019-01-17 10:16 | Urology Progress Note ---
Date of Service January 17, 2019 Assessment & Plan (1) Calculus of distal left ureter: A/P 73 yo female with improving obstructive urosepsis POD#2 s/p L uscope, laser litho, stent. Doing well. Would continue antibiotic therapy x 2 weeks seen complex UTI and urosepsis. Will check KUB for stone visibility, plan on OP f/u in a few weeks with our service after recovery for discussion of management of her indwelling stent and remaining stones. Lemonade therapy discussed with patient. Thank you for allowing us to participate in this patient's acute care. Please recall our service with any questions or concerns. Subjective 73 yo female POD#2 s/p L uscope, laser litho, stent for obstructive stone and sepsis. She reports she feels "90%" improved, sitting in chair reading, no c/o. Minimal stent discomfort. She is currently afebrile, events and notes reviewed. Cr normalized. Review of Systems Constitutional: no fever and no chills Eyes: no diplopia Ear, Nose, Mouth, Throat: no ear trauma Respiratory: no hemoptysis Cardiovascular: no chest pain Gastrointestinal: no abdominal pain, no nausea and no vomiting Integumentary: no acne and no boil Neurologic: no paralysis and no numbness Physical Exam Constitutional: + obese; no acute distress Eyes: eyes not dysmorphic ENMT: Ears: no external ear abnormality Neck: trachea midline; no anterior neck swelling Respiratory: no respiratory distress and does not use accessory muscles Cardiovascular: Vessels: radial pulses present Gastrointestinal (Abdomen): Inspection/Auscultation: abdomen not distended Percussion/Palpation: abdomen soft; abdomen nontender Skin: normal turgor Neurologic: awake; not obtunded Psychiatric: Orientation: oriented x 3 Lymphatic: no lymphadenopathy Results & Data Vital Signs (Past 12 Hours) Vital Signs Temp Pulse Resp BP Pulse Ox 01/17/19 08:40 36.8 C 89 18 141/83 H 97 01/16/19 23:29 37.2 C 81 18 128/79 93 Laboratory Results Laboratory Results - last 48 hr 01/14/19 01/15/19 01/15/19 05:49 11:08 14:05 WBC RBC Hgb Hct MCV MCH MCHC RDW Std Deviation RDW Coeff of Fern Plt Count MPV Immature Gran % (Auto) Neut % (Auto) Lymph % (Auto) Charles % (Auto) Eos % (Auto) Baso % (Auto) Immature Gran # (Auto) Neut # (Auto) Lymph # (Auto) Charles # (Auto) Eos # (Auto) Baso # (Auto) Absolute Nucleated RBC Nucleated RBC % (auto) Neutrophils % (Manual) Band Neutrophils % Lymphocytes % (Manual) Prolymphocyte % Reactive Lymphs % (Man) Monocytes % (Manual) Eosinophils % (Manual) Basophils % (Manual) Metamyelocytes % (Man) Myelocytes % (Man) Promyelocytes % (Man) Blast Cells % (Manual) Plasma Cell % (Manual) Other Cells % Nucleated RBC % Neutrophils # (Manual) Band Neutrophils # Total Absolute Neuts Lymphocytes # (Manual) Prolymphocyte # Reactive Lymphs # Total Abs Lymphocytes Monocytes # (Manual) Eosinophils # (Manual) Basophils # (Manual) Metamyelocytes # (Man) Myelocytes # (Manual) Promyelocytes # (Man) Blast Cells # (Man) Plasma Cell # (Manual) Other Cells # Nucleated RBCs # (Man) Hypersegmented Neuts Hyposegmented Neuts Hypogranular Neuts Large Granular Lymphs # Lrg Granular Lymphs Hairy Cells Smudge Cells Toxic Granulation Toxic Vacuolation Dohle Bodies Jonathan Rods Platelet Estimate Hypogranular Platelets Clumped Platelets Giant Platelets Platelet Satelliting RBC Morphology Polychromasia Hypochromasia Poikilocytosis Basophilic Stippling Anisocytosis Microcytosis Macrocytosis Spherocytes Pappenheimer Bodies Sickle Cells Target Cells Tear Drop Cells Ovalocytes Stomatocytes [place]Calvin Bodies Echinocytes Acanthocytes (Spur) Rouleaux RBC Agglutinates Schistocytes RBC Morph Comment Sezary Cell Sodium Potassium Chloride Carbon Dioxide Anion Gap BUN Creatinine Est Cr Clr Drug Dosing Est GFR ( Amer) Est GFR (Non-Af Amer) BUN/Creatinine Ratio Glucose POC Glucose 161 H 112 H Calcium Total Bilirubin AST ALT Alkaline Phosphatase Total Protein Albumin Globulin Albumin/Globulin Ratio Blood Type Recheck AB Positive 01/15/19 01/15/19 01/16/19 16:32 20:36 05:49 WBC RBC Hgb Hct MCV MCH MCHC RDW Std Deviation RDW Coeff of Fern Plt Count MPV Immature Gran % (Auto) Neut % (Auto) Lymph % (Auto) Charles % (Auto) Eos % (Auto) Baso % (Auto) Immature Gran # (Auto) Neut # (Auto) Lymph # (Auto) Charles # (Auto) Eos # (Auto) Baso # (Auto) Absolute Nucleated RBC Nucleated RBC % (auto) Neutrophils % (Manual) Band Neutrophils % Lymphocytes % (Manual) Prolymphocyte % Reactive Lymphs % (Man) Monocytes % (Manual) Eosinophils % (Manual) Basophils % (Manual) Metamyelocytes % (Man) Myelocytes % (Man) Promyelocytes % (Man) Blast Cells % (Manual) Plasma Cell % (Manual) Other Cells % Nucleated RBC % Neutrophils # (Manual) Band Neutrophils # Total Absolute Neuts Lymphocytes # (Manual) Prolymphocyte # Reactive Lymphs # Total Abs Lymphocytes Monocytes # (Manual) Eosinophils # (Manual) Basophils # (Manual) Metamyelocytes # (Man) Myelocytes # (Manual) Promyelocytes # (Man) Blast Cells # (Man) Plasma Cell # (Manual) Other Cells # Nucleated RBCs # (Man) Hypersegmented Neuts Hyposegmented Neuts Hypogranular Neuts Large Granular Lymphs # Lrg Granular Lymphs Hairy Cells Smudge Cells Toxic Granulation Toxic Vacuolation Dohle Bodies Jonathan Rods Platelet Estimate Hypogranular Platelets Clumped Platelets Giant Platelets Platelet Satelliting RBC Morphology Polychromasia Hypochromasia Poikilocytosis Basophilic Stippling Anisocytosis Microcytosis Macrocytosis Spherocytes Pappenheimer Bodies Sickle Cells Target Cells Tear Drop Cells Ovalocytes Stomatocytes [place]-Calvin Bodies Echinocytes Acanthocytes (Spur) Rouleaux RBC Agglutinates Schistocytes RBC Morph Comment Sezary Cell Sodium 145 Potassium 2.8 L Chloride 112 H Carbon Dioxide 24 Anion Gap 8.0 BUN 28 H Creatinine 1.29 H Est Cr Clr Drug Dosing 41.5 Est GFR ( Amer) 47.9 Est GFR (Non-Af Amer) 41.3 BUN/Creatinine Ratio 21.5 H Glucose 155 H POC Glucose 117 H 178 H Calcium 8.1 L Total Bilirubin 0.5 AST 15 ALT 17 Alkaline Phosphatase 119 H Total Protein 6.1 L Albumin 2.2 L Globulin 3.9 Albumin/Globulin Ratio 0.6 L Blood Type Recheck 01/16/19 01/16/19 01/16/19 05:49 07:12 12:47 WBC 20.23 H D RBC 4.13 L Hgb 12.3 Hct 36.1 L MCV 87.4 MCH 29.8 MCHC 34.1 RDW Std Deviation 46.5 H RDW Coeff of Fern 14.5 Plt Count 60 L MPV 11.4 H Immature Gran % (Auto) Neut % (Auto) Lymph % (Auto) Charles % (Auto) Eos % (Auto) Baso % (Auto) Immature Gran # (Auto) Neut # (Auto) Lymph # (Auto) Charles # (Auto) Eos # (Auto) Baso # (Auto) Absolute Nucleated RBC Nucleated RBC % (auto) Neutrophils % (Manual) 84.4 Band Neutrophils % Lymphocytes % (Manual) 10.4 Prolymphocyte % Reactive Lymphs % (Man) Monocytes % (Manual) 4.3 Eosinophils % (Manual) 0.9 Basophils % (Manual) Metamyelocytes % (Man) Myelocytes % (Man) Promyelocytes % (Man) Blast Cells % (Manual) Plasma Cell % (Manual) Other Cells % Nucleated RBC % Neutrophils # (Manual) 17.07 H Band Neutrophils # Total Absolute Neuts 17.07 H Lymphocytes # (Manual) 2.10 Prolymphocyte # Reactive Lymphs # Total Abs Lymphocytes 2.10 Monocytes # (Manual) 0.87 H Eosinophils # (Manual) 0.18 Basophils # (Manual) Metamyelocytes # (Man) Myelocytes # (Manual) Promyelocytes # (Man) Blast Cells # (Man) Plasma Cell # (Manual) Other Cells # Nucleated RBCs # (Man) Hypersegmented Neuts Hyposegmented Neuts Hypogranular Neuts Large Granular Lymphs # Lrg Granular Lymphs Hairy Cells Smudge Cells Toxic Granulation Toxic Vacuolation Dohle Bodies 1+ Jonathan Rods Platelet Estimate Decreased L Hypogranular Platelets Clumped Platelets Giant Platelets Platelet Satelliting RBC Morphology Polychromasia Hypochromasia Poikilocytosis Basophilic Stippling Anisocytosis Microcytosis Macrocytosis Spherocytes Pappenheimer Bodies Sickle Cells Target Cells Tear Drop Cells Ovalocytes Stomatocytes [place]-Calvin Bodies Echinocytes Acanthocytes (Spur) Rouleaux RBC Agglutinates Schistocytes RBC Morph Comment Sezary Cell Sodium Potassium Chloride Carbon Dioxide Anion Gap BUN Creatinine Est Cr Clr Drug Dosing Est GFR ( Amer) Est GFR (Non-Af Amer) BUN/Creatinine Ratio Glucose POC Glucose 145 H 131 H Calcium Total Bilirubin AST ALT Alkaline Phosphatase Total Protein Albumin Globulin Albumin/Globulin Ratio Blood Type Recheck 01/16/19 01/16/19 01/17/19 17:00 20:31 05:39 WBC Cancelled RBC Cancelled Hgb Cancelled Hct Cancelled MCV Cancelled MCH Cancelled MCHC Cancelled RDW Std Deviation Cancelled RDW Coeff of Fern Cancelled Plt Count Cancelled MPV Cancelled Immature Gran % (Auto) Cancelled Neut % (Auto) Cancelled Lymph % (Auto) Cancelled Charles % (Auto) Cancelled Eos % (Auto) Cancelled Baso % (Auto) Cancelled Immature Gran # (Auto) Cancelled Neut # (Auto) Cancelled Lymph # (Auto) Cancelled Charles # (Auto) Cancelled Eos # (Auto) Cancelled Baso # (Auto) Cancelled Absolute Nucleated RBC Cancelled Nucleated RBC % (auto) Cancelled Neutrophils % (Manual) Cancelled Band Neutrophils % Cancelled Lymphocytes % (Manual) Cancelled Prolymphocyte % Cancelled Reactive Lymphs % (Man) Cancelled Monocytes % (Manual) Cancelled Eosinophils % (Manual) Cancelled Basophils % (Manual) Cancelled Metamyelocytes % (Man) Cancelled Myelocytes % (Man) Cancelled Promyelocytes % (Man) Cancelled Blast Cells % (Manual) Cancelled Plasma Cell % (Manual) Cancelled Other Cells % Cancelled Nucleated RBC % Cancelled Neutrophils # (Manual) Cancelled Band Neutrophils # Cancelled Total Absolute Neuts Cancelled Lymphocytes # (Manual) Cancelled Prolymphocyte # Cancelled Reactive Lymphs # Cancelled Total Abs Lymphocytes Cancelled Monocytes # (Manual) Cancelled Eosinophils # (Manual) Cancelled Basophils # (Manual) Cancelled Metamyelocytes # (Man) Cancelled Myelocytes # (Manual) Cancelled Promyelocytes # (Man) Cancelled Blast Cells # (Man) Cancelled Plasma Cell # (Manual) Cancelled Other Cells # Cancelled Nucleated RBCs # (Man) Cancelled Hypersegmented Neuts Cancelled Hyposegmented Neuts Cancelled Hypogranular Neuts Cancelled Large Granular Lymphs Cancelled # Lrg Granular Lymphs Cancelled Hairy Cells Cancelled Smudge Cells Cancelled Toxic Granulation Cancelled Toxic Vacuolation Cancelled Dohle Bodies Cancelled Jonathan Rods Cancelled Platelet Estimate Cancelled Hypogranular Platelets Cancelled Clumped Platelets Cancelled Giant Platelets Cancelled Platelet Satelliting Cancelled RBC Morphology Cancelled Polychromasia Cancelled Hypochromasia Cancelled Poikilocytosis Cancelled Basophilic Stippling Cancelled Anisocytosis Cancelled Microcytosis Cancelled Macrocytosis Cancelled Spherocytes Cancelled Pappenheimer Bodies Cancelled Sickle Cells Cancelled Target Cells Cancelled Tear Drop Cells Cancelled Ovalocytes Cancelled Stomatocytes Cancelled [place]-Calvin Bodies Cancelled Echinocytes Cancelled Acanthocytes (Spur) Cancelled Rouleaux Cancelled RBC Agglutinates Cancelled Schistocytes Cancelled RBC Morph Comment Cancelled Sezary Cell Cancelled Sodium Potassium Chloride Carbon Dioxide Anion Gap BUN Creatinine Est Cr Clr Drug Dosing Est GFR ( Amer) Est GFR (Non-Af Amer) BUN/Creatinine Ratio Glucose POC Glucose 90 146 H Calcium Total Bilirubin AST ALT Alkaline Phosphatase Total Protein Albumin Globulin Albumin/Globulin Ratio Blood Type Recheck 01/17/19 01/17/19 05:39 08:03 WBC RBC Hgb Hct MCV MCH MCHC RDW Std Deviation RDW Coeff of Fern Plt Count MPV Immature Gran % (Auto) Neut % (Auto) Lymph % (Auto) Charles % (Auto) Eos % (Auto) Baso % (Auto) Immature Gran # (Auto) Neut # (Auto) Lymph # (Auto) Charles # (Auto) Eos # (Auto) Baso # (Auto) Absolute Nucleated RBC Nucleated RBC % (auto) Neutrophils % (Manual) Band Neutrophils % Lymphocytes % (Manual) Prolymphocyte % Reactive Lymphs % (Man) Monocytes % (Manual) Eosinophils % (Manual) Basophils % (Manual) Metamyelocytes % (Man) Myelocytes % (Man) Promyelocytes % (Man) Blast Cells % (Manual) Plasma Cell % (Manual) Other Cells % Nucleated RBC % Neutrophils # (Manual) Band Neutrophils # Total Absolute Neuts Lymphocytes # (Manual) Prolymphocyte # Reactive Lymphs # Total Abs Lymphocytes Monocytes # (Manual) Eosinophils # (Manual) Basophils # (Manual) Metamyelocytes # (Man) Myelocytes # (Manual) Promyelocytes # (Man) Blast Cells # (Man) Plasma Cell # (Manual) Other Cells # Nucleated RBCs # (Man) Hypersegmented Neuts Hyposegmented Neuts Hypogranular Neuts Large Granular Lymphs # Lrg Granular Lymphs Hairy Cells Smudge Cells Toxic Granulation Toxic Vacuolation Dohle Bodies Jonathan Rods Platelet Estimate Hypogranular Platelets Clumped Platelets Giant Platelets Platelet Satelliting RBC Morphology Polychromasia Hypochromasia Poikilocytosis Basophilic Stippling Anisocytosis Microcytosis Macrocytosis Spherocytes Pappenheimer Bodies Sickle Cells Target Cells Tear Drop Cells Ovalocytes Stomatocytes [place]-Calvin Bodies Echinocytes Acanthocytes (Spur) Rouleaux RBC Agglutinates Schistocytes RBC Morph Comment Sezary Cell Sodium 143 Potassium 3.5 D Chloride 114 H Carbon Dioxide 21 Anion Gap 8.0 BUN 23 H Creatinine 1.15 Est Cr Clr Drug Dosing 46.6 Est GFR ( Amer) 55.0 Est GFR (Non-Af Amer) 47.5 BUN/Creatinine Ratio 20.0 Glucose 158 H POC Glucose 151 H Calcium 7.6 L Total Bilirubin 0.5 AST 14 L ALT 16 Alkaline Phosphatase 88 Total Protein 5.9 L Albumin 2.3 L Globulin 3.6 Albumin/Globulin Ratio 0.6 L Blood Type Recheck
[2019-01-17] MEDS: LACTOBACILLUS ACIDOPHILUS (FLORANEX) TAB PO SCH ×2 (12:42→17:21)
--- NOTE | 2019-01-17 13:51 | XRay Report ---
KUB CLINICAL HISTORY: Nephrolithiasis. FINDINGS: 2 AP supine abdominal radiographs are correlated with abdominal CT dated 01/15/2019. A left ureteral stent is new from previous. No calcifications are identified along the course of the stent. There are 2 calculi projecting over the lower pole of the left kidney measuring up to 6 mm. No calcif ications are clearly seen projecting over the right kidney. No bowel obstruction is identified. The s keletal structures are osteopenic. Lumbosacral spondylosis is observed. Postoperative change is parti ally visualized in the left proximal femur. IMPRESSION: 1. A left ureteral stent is new from previous. No stones are seen along the course of the stent. 2. 2 there are 2 additional nonobstructing left renal calculi identified. Electronically signed by: Jeremias Soria M.D. 01/17/2019 1:49 PM
[2019-01-17] MEDS ORDERED: levoFLOXacin 750 MG TAB PO SCH (14:00)
--- NOTE | 2019-01-17 14:35 | Hospitalist Progress Note ---
Date of Service January 17, 2019 Assessment & Plan (1) Calculus of distal left ureter: obstructing left ureteral stone seen on CT 01/15/19 no pain at all, no fever s/p Cystoscopy, Left Retrograde Pyelogram with Stent Placement, Possible Ureteroscopy and Laser Lithotripsy with Basket Stone Extraction on 01/15 tolerated well, vitals stable WBC down to 20k from 30k no fever and vitals stable since procedure needs follow up with [facility] for ureteral stent removal, they should contact patient (2) Severe sepsis: due to UTI and left ureteral stone blood culture from [facility] grew Klebsiella pneumo, only resistant to Ampicillin evidence of organ failure with lactic acidosis, RATNA, hypotension all at time of admission treated aggressively with IV fluids received 4L at [facility] prior to transfer, additional 3 liters here, she is adequately volume resuscitated stop fluids 01/14 broad spectrum antibiotics with Zosyn, Levaquin, Vancomycin initially no infiltrate seen on CT, Vanco stopped 01/15 based on blood culture, will stop Zosyn and use Levaquin PO pharmacy dosed Levaquin for 750mg q48 would need at least 14 days for the bacteremia last dose should be 01/29 (3) Acute kidney injury (nontraumatic): likely due to sepsis, could represent ATN given hypotension however, quick improvement points more towards prerenal azotemia Cr was 2.5 at time of transfer to [facility] Cr down to 1.1 today RATNA resolved stopped fluids on 01/14, treated with Lasix 20mg IV to mobilize fluid transition to Lasix 20mg PO daily which she takes at home (4) Hypoxia: acute respiratory failure with hypoxia ABG reportedly showed PaO2 of 58 and was placed on BIPAP normally wears a CPAP at night weaned off of BIPAP 01/14 breathing well on nasal canula alot of the tachypnea was likely due to respiratory compensation for metabolic acidosis weaned to room air on 01/16 likely her hypoxia was due to sepsis, some pulmonary edema, all resolved (5) Lactic acidosis: due to severe sepsis and hypotension initially was 7.9, improved to 3.8 here 1.4 on 01/14, thus the acidosis is resolved (6) Hypokalemia: 3.5 today make KCl replacement once daily (7) Hypotension: technically not shock since here BP improved with IV fluid challenge BP actually elevated now, can resume home BP meds (8) Sepsis due to urinary tract infection: see above under severe sepsis (9) Sleep apnea: normally on CPAP (10) Diabetes mellitus: Novolog diabetic diet monitor for hypoglycemia, no episodes (11) Elevated troponin: no chest pain, no changes on echocardiogram this likely represents some demand cardiac ischemia, not ACS treat with supportive care consult PT/OT Plan: can go to [facility] in [place] tomorrow marley for discharge is to be on Levaquin 750mg q48 until 01/29 will need follow up with Pepe Roblero MD with urology in 1-2 weeks for stent removal Subjective patient doing really well today, sitting up in chair eating well, no issues breathing, no abdominal pain adkins removed and she is urinating well no fever or chills received final blood culture result from [facility], had Klebsiella that was only resistant to Ampicillin d/w pharmacy, will use Levaquin only, stop the Zosyn reviewed labs, Cr is down to 1.1, electrolytes stable discussed going to [facility] tomorrow for rehab, she agrees discussed with roz Szymanski for d/c from urology perspective, his office will set up appt to remove ureteral stent Review of Systems Review of Systems: All systems reviewed & are unremarkable except as noted in HPI & below Constitutional: no fever Respiratory: no cough and no dyspnea Cardiovascular: no chest pain Musculoskeletal: + muscle weakness Neurologic: + generalized weakness Physical Exam Constitutional: WD/WN, vitals as above not in distress Eyes: PERRL, conjunctivae normal, anicteric sclerae ENMT: external ear and nose normal, oropharynx normal Neck: trachea midline, no thyromegaly Respiratory: normal respiratory effort Auscultation: lungs clear to auscultation bilaterally; no crackles, no rales, no rhonchi and no wheezes Cardiovascular: Rate/Rhythm: regular rate and regular rhythm Heart Sounds: normal S1 and normal S2; no murmur Vessels: no JVD Extremities: no edema Gastrointestinal (Abdomen): normal bowel sounds, soft, nontender, no hepatosplenomegaly Musculoskeletal: no cyanosis or clubbing, extremities motor strength 5/5 Skin: no rashes, warm and dry Neurologic: patellar DTR's 2+ bilat, sensation intact and PERRL, EOMI, accommodation nl, no face palsy, no dysarthria Psychiatric: A+Ox3, euthymic affect Lymphatic: no cervical or axillary lymphadenopathy Results & Data Vital Signs (Past 12 Hours) Vital Signs Temp Pulse Resp BP Pulse Ox 01/17/19 08:40 36.8 C 89 18 141/83 H 97 Laboratory Results Laboratory Results - last 24 hr 01/16/19 01/16/19 01/17/19 17:00 20:31 05:39 WBC Cancelled RBC Cancelled Hgb Cancelled Hct Cancelled MCV Cancelled MCH Cancelled MCHC Cancelled RDW Std Deviation Cancelled RDW Coeff of Fern Cancelled Plt Count Cancelled MPV Cancelled Immature Gran % (Auto) Cancelled Neut % (Auto) Cancelled Lymph % (Auto) Cancelled [place] % (Auto) Cancelled Eos % (Auto) Cancelled Baso % (Auto) Cancelled Immature Gran # (Auto) Cancelled Neut # (Auto) Cancelled Lymph # (Auto) Cancelled [place] # (Auto) Cancelled Eos # (Auto) Cancelled Baso # (Auto) Cancelled Absolute Nucleated RBC Cancelled Nucleated RBC % (auto) Cancelled Neutrophils % (Manual) Cancelled Band Neutrophils % Cancelled Lymphocytes % (Manual) Cancelled Prolymphocyte % Cancelled Reactive Lymphs % (Man) Cancelled Monocytes % (Manual) Cancelled Eosinophils % (Manual) Cancelled Basophils % (Manual) Cancelled Metamyelocytes % (Man) Cancelled Myelocytes % (Man) Cancelled Promyelocytes % (Man) Cancelled Blast Cells % (Manual) Cancelled Plasma Cell % (Manual) Cancelled Other Cells % Cancelled Nucleated RBC % Cancelled Neutrophils # (Manual) Cancelled Band Neutrophils # Cancelled Total Absolute Neuts Cancelled Lymphocytes # (Manual) Cancelled Prolymphocyte # Cancelled Reactive Lymphs # Cancelled Total Abs Lymphocytes Cancelled Monocytes # (Manual) Cancelled Eosinophils # (Manual) Cancelled Basophils # (Manual) Cancelled Metamyelocytes # (Man) Cancelled Myelocytes # (Manual) Cancelled Promyelocytes # (Man) Cancelled Blast Cells # (Man) Cancelled Plasma Cell # (Manual) Cancelled Other Cells # Cancelled Nucleated RBCs # (Man) Cancelled Hypersegmented Neuts Cancelled Hyposegmented Neuts Cancelled Hypogranular Neuts Cancelled Large Granular Lymphs Cancelled # Lrg Granular Lymphs Cancelled Hairy Cells Cancelled Smudge Cells Cancelled Toxic Granulation Cancelled Toxic Vacuolation Cancelled Dohle Bodies Cancelled Jonathan Rods Cancelled Platelet Estimate Cancelled Hypogranular Platelets Cancelled Clumped Platelets Cancelled Giant Platelets Cancelled Platelet Satelliting Cancelled RBC Morphology Cancelled Polychromasia Cancelled Hypochromasia Cancelled Poikilocytosis Cancelled Basophilic Stippling Cancelled Anisocytosis Cancelled Microcytosis Cancelled Macrocytosis Cancelled Spherocytes Cancelled Pappenheimer Bodies Cancelled Sickle Cells Cancelled Target Cells Cancelled Tear Drop Cells Cancelled Ovalocytes Cancelled Stomatocytes Cancelled [place]cho[place] Bodies Cancelled Echinocytes Cancelled Acanthocytes (Spur) Cancelled Rouleaux Cancelled RBC Agglutinates Cancelled Schistocytes Cancelled RBC Morph Comment Cancelled Sezary Cell Cancelled Sodium Potassium Chloride Carbon Dioxide Anion Gap BUN Creatinine Est Cr Clr Drug Dosing Est GFR ( Amer) Est GFR (Non-Af Amer) BUN/Creatinine Ratio Glucose POC Glucose 90 146 H Calcium Total Bilirubin AST ALT Alkaline Phosphatase Total Protein Albumin Globulin Albumin/Globulin Ratio 01/17/19 01/17/19 01/17/19 05:39 08:03 11:51 WBC RBC Hgb Hct MCV MCH MCHC RDW Std Deviation RDW Coeff of Fern Plt Count MPV Immature Gran % (Auto) Neut % (Auto) Lymph % (Auto) [place] % (Auto) Eos % (Auto) Baso % (Auto) Immature Gran # (Auto) Neut # (Auto) Lymph # (Auto) [place] # (Auto) Eos # (Auto) Baso # (Auto) Absolute Nucleated RBC Nucleated RBC % (auto) Neutrophils % (Manual) Band Neutrophils % Lymphocytes % (Manual) Prolymphocyte % Reactive Lymphs % (Man) Monocytes % (Manual) Eosinophils % (Manual) Basophils % (Manual) Metamyelocytes % (Man) Myelocytes % (Man) Promyelocytes % (Man) Blast Cells % (Manual) Plasma Cell % (Manual) Other Cells % Nucleated RBC % Neutrophils # (Manual) Band Neutrophils # Total Absolute Neuts Lymphocytes # (Manual) Prolymphocyte # Reactive Lymphs # Total Abs Lymphocytes Monocytes # (Manual) Eosinophils # (Manual) Basophils # (Manual) Metamyelocytes # (Man) Myelocytes # (Manual) Promyelocytes # (Man) Blast Cells # (Man) Plasma Cell # (Manual) Other Cells # Nucleated RBCs # (Man) Hypersegmented Neuts Hyposegmented Neuts Hypogranular Neuts Large Granular Lymphs # Lrg Granular Lymphs Hairy Cells Smudge Cells Toxic Granulation Toxic Vacuolation Dohle Bodies Jonathan Rods Platelet Estimate Hypogranular Platelets Clumped Platelets Giant Platelets Platelet Satelliting RBC Morphology Polychromasia Hypochromasia Poikilocytosis Basophilic Stippling Anisocytosis Microcytosis Macrocytosis Spherocytes Pappenheimer Bodies Sickle Cells Target Cells Tear Drop Cells Ovalocytes Stomatocytes [place] Bodies Echinocytes Acanthocytes (Spur) Rouleaux RBC Agglutinates Schistocytes RBC Morph Comment Sezary Cell Sodium 143 Potassium 3.5 D Chloride 114 H Carbon Dioxide 21 Anion Gap 8.0 BUN 23 H Creatinine 1.15 Est Cr Clr Drug Dosing 46.6 Est GFR ( Amer) 55.0 Est GFR (Non-Af Amer) 47.5 BUN/Creatinine Ratio 20.0 Glucose 158 H POC Glucose 151 H 148 H Calcium 7.6 L Total Bilirubin 0.5 AST 14 L ALT 16 Alkaline Phosphatase 88 Total Protein 5.9 L Albumin 2.3 L Globulin 3.6 Albumin/Globulin Ratio 0.6 L Medications Administered Current Inpatient Medications Acetaminophen (Tylenol) 650 mg PO Q4H PRN PRN Reason: Pain or Fever Stop: 02/12/19 10:13 Amlodipine Besylate (Norvasc) 5 mg PO HS PENDING SALE TO [facility] Stop: 02/13/19 20:59 Last Admin: 01/16/19 20:30 Dose: 5 mg Documented by: Aspirin (Ecotrin Ectab) [facility] Stop: 02/14/19 08:59 Last Admin: 01/17/19 08:14 Dose: 81 mg Documented by: Dextrose (Dextrose 50%) 25 - 50 ml IV UD PRN; Protocol PRN Reason: Hypoglycemia Protocol Stop: 02/12/19 13:14 Furosemide (Lasix) 20 mg PO QAM PENDING SALE TO [facility] Stop: 02/15/19 08:59 Last Admin: 01/17/19 08:15 Dose: 20 mg Documented by: Glucagon (Glucagen) 1 mg IM UD PRN; Protocol PRN Reason: Hypoglycemia Protocol Stop: 02/12/19 13:14 Glucose (Glucose 40%) 15 - 30 gm PO UD PRN; Protocol PRN Reason: Hypoglycemia Protocol Stop: 02/12/19 13:14 Glucose (Dex4 Glucose) 4 - 8 tabs PO UD PRN; Protocol PRN Reason: Hypoglycemia Protocol Stop: 02/12/19 13:14 Heparin Sodium (Porcine) (Heparin Sodium (Porcine)) 5,000 units SQ Q8 [facility]INA Stop: 02/12/19 13:59 Last Admin: 01/17/19 06:05 Dose: 5,000 units Documented by: Piperacillin Sod/Tazobactam (Sod 4.5 gm/ Dextrose) 120 mls @ 30 mls/hr IV Q8H PENDING SALE TO [facility]; Protocol Stop: 01/24/19 09:59 Last Infusion: 01/17/19 13:46 Dose: Infused Documented by: Insulin Aspart (Novolog Flexpen) 0 units SC ACHS PENDING SALE TO [facility] Stop: 02/12/19 13:14 Last Admin: 01/17/19 12:43 Dose: 2 units Documented by: Lactobacillus Acidophilus (Floranex) 4 tab PO TIDM PENDING SALE TO [facility] Stop: 02/16/19 11:59 Last Admin: 01/17/19 12:42 Dose: 4 tab Documented by: Levofloxacin (Levaquin) 750 mg PO Q48H PENDING SALE TO [facility] Stop: 02/01/19 10:59 Miscellaneous (Carbohydrates For Hypoglycemia) 15 - 30 gm PO UD PRN PRN Reason: Hypoglycemia Treatment Stop: 02/12/19 13:14 Nystatin (Mycostatin) 1 appln EXT Q8 PENDING SALE TO [facility] Stop: 02/12/19 13:59 Last Admin: 01/17/19 06:06 Dose: 1 appln Documented by: Ondansetron HCl (Zofran) 4 mg IV Q6H PRN PRN Reason: Nausea Stop: 02/12/19 10:13 Potassium Chloride (Klor-Con M20) 40 meq PO TID PENDING SALE TO [facility] Stop: 02/15/19 08:59 Last Admin: 01/17/19 08:14 Dose: 40 meq Documented by: Pravastatin Sodium (Pravachol) 20 mg PO HS PENDING SALE TO [facility] Stop: 02/13/19 20:59 Last Admin: 01/16/19 20:30 Dose: 20 mg Documented by: Ropinirole HCl (Requip) 0.5 mg PO HS PENDING SALE TO [facility] Stop: 02/13/19 20:59 Last Admin: 01/16/19 20:25 Dose: 0.5 mg Documented by: Timolol Maleate (Timoptic 0.5% Oph) 1 drops OPB BID [facility]INA Stop: 02/13/19 20:59 Last Admin: 01/17/19 08:15 Dose: 1 drops Documented by: PG Care Time/CCT Total # of Minutes Spent Total Time Spent with Patient: Total time spent is greater than 50% in coordination of care (as documented) at patient's floor/unit and/or counseling patient:
[2019-01-17] MEDS: AMLODIPINE BESYLATE 5 MG TAB PO SCH (21:44)
[2019-01-17] MEDS: PRAVASTATIN SOD 20 MG TAB PO SCH (21:44)
[2019-01-17] MEDS: ROPINIROLE HCL 0.25 MG TABLET PO SCH (21:44)
[2019-01-17] MEDS: TRAVOPROST Z 0.004% OPH SOLN 2.5 ML BTL OPB SCH (21:45)
[2019-01-18] MEDS: NYSTATIN OINT 15 GM TUBE EXT SCH ×2 (06:13→14:22)
[2019-01-18] MEDS: HEPARIN SOD 5,000 UNIT/0.5 ML VIAL SQ SCH ×2 (06:13→15:10)
--- NOTE | 2019-01-18 07:41 | Anesthesiology Progress Note ---
Date of Service January 18, 2019 Anesthesia Post Procedure Vital Signs Vital Signs: Temp Pulse Resp BP BP Pulse Ox 01/17/19 23:25 37.3 C 84 20 152/81 H 97 01/17/19 17:25 36.7 C 89 19 140/81 98 01/17/19 08:40 36.8 C 89 18 141/83 H 97 Notes Mental Status: alert / awake / arousable and participated in evaluation Nausea / Vomiting: adequately controlled Pain: adequately controlled Airway Patency, RR, SpO2: stable & adequate BP & HR: stable & adequate Hydration State: stable & adequate Anesthetic Complications: no major complications apparent and Pt Satisfied with anesthetic care
[2019-01-18] MEDS: LACTOBACILLUS ACIDOPHILUS (FLORANEX) TAB PO SCH ×2 (07:43→12:21)
[2019-01-18] MEDS: POTASSIUM CHLORIDE 20 MEQ TABCR PO SCH ×2 (07:43→15:10)
[2019-01-18] MEDS: ASPIRIN 81 MG ECTAB PO SCH (07:43)
[2019-01-18] MEDS: TIMOLOL MALEATE 0.5% OP SOLN 5 ML BTL OPB SCH (07:44)
[2019-01-18] MEDS: FUROSEMIDE 20 MG TAB PO SCH (07:44)
[2019-01-18] MEDS: INSULIN ASPART 100 UNITS/ML 3 ML PEN SC SCH ×2 (09:16→12:21)
--- NOTE | 2019-01-18 16:45 | Discharge Summary ---
Date of Service January 18, 2019 Admission HPI Per Admitting Provider 73 yo female with history of morbid obesity, DM type II, obstructive sleep apnea and several cases of UTI and pneumonia, transferred to [facility] from [facility] ED this morning due to signs of severe sepsis and UTI. Apparently she was seen in the ED at [facility] two days ago with symptoms of UTI. She was sent home on Macrobid. Last night her brother brought her to the hospital because she was lethargic, not eating well, had fevers and chills. Her urine was described as foul smelling. She was not reported to have any difficulty breathing. Note that most of the HPI obtained from records from [facility] and the patient's brother because the patient has BIPAP and cannot answer many questions. Patient had a WBC of 16k and Cr was 2.7. Lactic acid was elevated at 7.9. Patient was hypotensive and had aggressive IV hydration with 2L via bolus and then 2 more liters at 500mL/hr and 250mL/hr respectively. She responded well to IV fluids, BP in the 90's systolic and MAP without pressors was > 65. Repeat labs showed lactic acid down to the 3.7 range but Cr was not really improving. K was low at 2.7, given 30mEq of KCl. Magnesium was low and treated with 2gm IV Magnesium. Treated with Rocephin, Vancomycin and then Primaxin IV in the ED. Cultures obtained. A CT of the abdomen/pelvis without contrast done, lots of motion so difficult to read. There were some signs of possible pyelonephritis, could not rule out a distal ureteral stone due to motion. CXR showed atelectasis vs infiltrate. Due to renal failure and severe sepsis, [facility] requested transfer. Upon arrival the patient was stable on BIPAP, saturations in the 90's. HR in the 110-120 range, sinus tachycardia, BP 89-97 systolic, MAP were > 65. Had one peripheral IV site. No fever. STAT labs showed WBC was 16k, down from 21k earlier this morning. Lactic acid 3.8. Cr stable at 2.5, making adequate urine via adkins. K slightly low at 3.1. CXR with possible left lower lobe infiltrate and effusion, poor inspiratory effort. Principal Diagnosis Sepsis, UTI, ureterolithiasis, Klebsiella pneumoniae bacteremia Acute hypoxic respiratory failure Discharge Exam Constitutional WD/WN, vitals as above + morbidly obese Eyes PERRL, conjunctivae normal, anicteric sclerae ENMT external ear and nose normal, oropharynx normal Neck trachea midline, no thyromegaly Respiratory normal respiratory effort, lungs clear to auscultation Cardiovascular Rate/Rhythm: regular rate and regular rhythm Heart Sounds: no murmur Extremities: + edema (Trace edema in the legs bilaterally) Gastrointestinal (Abdomen) normal bowel sounds, soft, nontender, no hepatosplenomegaly Musculoskeletal Extremities: extremities normal to inspection; no cyanosis and no clubbing Skin no rashes, warm and dry Neurologic moves all extremities and awake; no focal motor deficits Psychiatric A+Ox3, euthymic affect Discharge Data Allergies Allergy/AdvReac Type Severity Reaction Status Date / Time erythromycin base Allergy Unknown UPSET Verified 01/15/19 12:36 STOMACH lisinopril Allergy Unknown HIVES Verified 01/15/19 12:36 SWOLLEN LIPS prednisone Allergy Unknown THRUSH Verified 01/15/19 12:36 Consultations Urology Procedures Performed Operation Date: 01/15/19 13:00 Actual Procedures p Cystoscopy, Left Retrograde Pyelogram, Semi-ridged Ureteroscopy and Laser Lithotripsy with Basket Stone Extraction(Left) - Pepe Roblero MD s , Ureteral Stent Placement(Left) - Pepe Roblero MD Ordered Studies 01/15/19 [place] retrograde includes kub Routine 01/15/19 07:04 CT abd pelvis wo con Urgent [facility] Chest x-ray Hospital Course (1) Calculus of distal left ureter: obstructing left ureteral stone seen on CT 01/15/19 no pain at all, no fever, but had persistent renal failure, UTI, and worsening leukocytosis which prompted the CT scan on 01/15 s/p Cystoscopy, Left Retrograde Pyelogram with Stent Placement, Possible Ureteroscopy and Laser Lithotripsy with Basket Stone Extraction on 01/15 tolerated well, vitals stable WBC down to 20k from 30k no fever and vitals stable since procedure needs follow up with [facility] for ureteral stent removal, they should contact patient -Discontinued calcium supplement Stone analysis is pending at the time of discharge (2) Severe sepsis: With Klebsiella pneumoniae septicemia present on admission due to UTI and left ureteral stone blood culture from [facility] grew Klebsiella pneumo, only resistant to Ampicillin evidence of organ failure with lactic acidosis, RATNA, hypotension all at time of admission treated aggressively with IV fluids received 4L at [facility] prior to transfer, additional 3 liters here, she is adequately volume resuscitated stopped fluids 01/14 broad spectrum antibiotics with Zosyn, Levaquin, Vancomycin initially no pulmonary infiltrate seen on CT, Vanco stopped 01/15 based on blood culture, then discontinued the Zosyn and transitioned to Levaquin PO pharmacy dosed Levaquin for 750mg q48 would need at least 14 days for the bacteremia last dose should be 01/29 (3) Acute kidney injury (nontraumatic): likely due to sepsis, could represent ATN given hypotension however, quick improvement points more towards prerenal azotemia Cr was 2.5 at time of transfer to [facility] Cr down to 1.1 the day prior to discharge RATNA resolved stopped fluids on 01/14, treated with Lasix 20mg IV to mobilize fluid transition to Lasix 20mg PO daily which she takes at home -Continue potassium supplementation along with Lasix (4) Hypoxia: acute respiratory failure with hypoxia ABG reportedly showed PaO2 of 58 and was placed on BIPAP normally wears a CPAP at night weaned off of BIPAP 01/14 a lot of the tachypnea was likely due to respiratory compensation for metabolic acidosis weaned to room air on 01/16 likely her hypoxia was due to sepsis, some pulmonary edema, all resolved (5) Lactic acidosis: due to severe sepsis and hypotension initially was 7.9, improved to 3.8 here 1.4 on 01/14, thus the acidosis is resolved (6) Hypokalemia: Hypokalemia now resolved make KCl replacement once daily at 20 mEq once daily along with her Lasix 20 mg p.o. once daily -Follow BMP in 2 to 3 days (7) Hypotension: Initially due to sepsis, now resolved with volume resuscitation -Have since resumed her home blood pressure meds (8) Sepsis due to urinary tract infection: see above under severe sepsis (9) Sleep apnea: Continue CPAP nightly (10) Diabetes mellitus: Received NovoLog sliding scale insulin while here diabetic diet Restart home metformin upon discharge -Needs Accu-Cheks q. before meals at bedtime (11) Elevated troponin: no chest pain, no changes on echocardiogram this likely represents some demand cardiac ischemia, not ACS Was treated with supportive care consult PT/OT-recommend fci/fci facility placement Plan: can go to [facility] in [place] today marley for discharge is to be on Levaquin 750mg q48 until 01/29 will need follow up with Pepe Roblero MD with urology in 1-2 weeks for stent removal Total Time Total Time Spent Total Time Spent (In Minutes): Greater than 30 minutes Total Time Includes: Examination of the Patient, Discharge Planning and Medication Reconciliation Discharge Plan Discharge Items Patient Disposition: Transfer Half-Way Fac Reason For Visit: SEPSIS, ACUTE KIDNEY INJURY Discharge Diagnosis: Sepsis, bacteremia, UTI with ureterolithiasis Condition: Fair Discharge Goals: Decrease discomfort, Diagnostic testing, Improve disease control, Learn about illness and Therapeutic intervention Activity: As commented below Lifting: Gradually increase as tolerated Bathing: No limitations Exercise/Sports: Gradually increase as tolerated Exercise Comment: With PT/OT Non-emergency contact: Primary Care Provider and Urologist Call non-emergency contact if: you have any medication questions, your symptoms worsen, your pain is not controlled, your pain is worsening, your pain is unusual for you, your pain is concerning for you, you have a fever and your temperature is above 100.5 Follow-up/Referrals: Pepe Roblero MD [Physician] - (Dr. Roblero's office should be contacting you to set up a follow-up appointment to remove your ureteral stent within 1-2 weeks.) Sera Hayden MD [Primary Care Provider] - (Follow-up with your primary care provider within 1 week after discharge from the [facility].) Diet: Carb Consistent or DM2 Addtl Provider Instructions: Please finish out the course of levofloxacin through 01/29/2019 for her Klebsiella pneumoniae bacteremia and UTI. She will need to have her ureteral stent removed by urology in 1-[address] Roblero. She is having some diarrhea but it tested negative for C. difficile. She can take probiotics and Imodium as needed. Please check a CBC and BMP in 2-3 days to ensure her leukocytosis is improved and renal function and potassium levels are remaining within normal limits. Prescriptions: New levofloxacin 750 mg Tablet 750 mg PO Q48H Qty: 6 RF: 0 acetaminophen [Mapap (acetaminophen)] 325 mg Tablet 650 mg PO Q4H PRN (Reason: Pain) Qty: 30 RF: 0 nystatin 100,000 unit/gram Ointment 1 applic EXT Q8 Qty: 15 RF: 0 potassium chloride [Klor-Con M20] 20 mEq Tablet,Er Particles/Crystals 20 meq PO QAM Qty: 30 RF: 0 Lactobacillus acidoph-L.bulgar [Floranex] 1 million cell Tablet 4 tab PO TIDM Qty: 60 RF: 0 Continued ASCORBIC ACID (VITAMIN C) 500 MG capsule 500 mg PO BID Qty: 0 RF: 0 ASPIRIN (ASPIRIN EC) 81 MG tablet 81 mg PO QAM Qty: 0 RF: 0 Alendronate/Cholecalciferol (Fosamax+D 70MG/2800 Iu) 70 MG tablet 1 tab PO FRIDAY Qty: 0 RF: 0 Amlodipine Besylate 5 MG tablet 5 mg PO HS Qty: 0 RF: 0 CYANOCOBALAMIN (VITAMIN B12 500MCG) 500 MCG tablet 500 mcg PO QAM Qty: 0 RF: 0 FAMOTIDINE (PEPCID AC) 10 MG tablet 10 mg PO QAM Qty: 0 RF: 0 Furosemide 20 MG tablet 20 mg PO QAM Qty: 0 RF: 0 LORATADINE (ALLERGY RELIEF) 10 MG tablet 10 mg PO QAM Qty: 0 RF: 0 Metformin HCl 500 MG tablet 500 mg PO BID Qty: 0 RF: 0 Multivitamin tablet 1 tab PO DAILY Qty: 0 RF: 0 Pravastatin Sod (Pravastatin Sodium) 20 MG tablet 20 mg PO HS Qty: 0 RF: 0 Ropinirole (Requip) 0.5 MG tablet 0.5 mg PO HS Qty: 0 RF: 0 TRAVOPROST (TRAVATAN Z) 0.004 % NANI 1 drp OPB HS Qty: 0 RF: 0 Timolol Maleate 0.5% Oph (Timoptic 0.5% Oph) solution 1 drp OPB BID Qty: 0 RF: 0 VITAMIN E 400 UNIT tablet 400 intunit PO QAM Qty: 0 RF: 0 Changed CHOLECALCIFEROL (VITAMIN D3) 2,000 UNIT capsule 1,000 unit PO QAM Qty: 0 RF: 0 Discontinued CALCIUM CARBONATE-VITAMIN D (CALCIUM 500 + D) 1 TAB tablet 1 tab PO QAM Qty: 0 RF: 0 LORAZEPAM 1 MG tablet 1 mg PO HS Qty: 0 RF: 0 MECLIZINE HCL 25 MG tablet 25 mg PO QAM Qty: 0 RF: 0 Tramadol HCl 50 MG tablet BID PRN (Reason: Pain) Qty: 0 RF: 0 Stand-Alone Forms: [facility] Discharge Orders: Discharge Order (Routine); Ordered 01/18/19 Ordered By: Ritika Rueda Skilled Items Patient informed of condition?: Yes DNR: Yes Discharge Level of Care: Skilled Communicable Disease: Yes (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 Service: Medical Other Pending Studies at Discharge: No
[2019-01-28 09:15] LABS: Component 2 DNR
== END 2019-01-18 18:38 | DRG 853 ==
LOC: 2E 10:13 → SUATTDRO 10:13 → 4E 01-16 10:13

== ENCOUNTER 2021-04-13 20:13 | Observation (INO) ==
[2021-04-13 21:48] LABS: Hematocrit (blood only) 44.4 % (37-47); Hemoglobin 14.7 g/dL (12.0-16.0); Mean Corpuscular Hemoglobin 29.2 pg (25-34); Mean Corpuscular Hgb Conc 33.1 g/dL (32-36); Mean Corpuscular Volume 88.1 fL (80-100); Mean Platelet Volume 10.1 fL (7.4-10.4); Platelet Count 236 K/uL (130-400); RDW Coefficient of Variation 14.2 % (11.5-14.5); RDW Standard Deviation 45.7 fL (36.4-46.3); Red Blood Count 5.04 M/uL (4.2-5.4); White Blood Count 14.14 K/uL (4.8-10.8)
[2021-04-13 22:02] LABS: Partial Thromboplastin Ratio 0.9; Partial Thromboplastin Time 23.1 Seconds (21.0-31.0); Prothrombin Time 9.9 Seconds (9.0-12.0)
[2021-04-13 22:37] LABS: Basophils # (auto) 0.02 K/uL (0-0.2); Basophils % (auto) 0.1 %; Eosinophils # (auto) 0.19 K/uL (0-0.5); Eosinophils % (auto) 1.3 %; Immature Granulocytes # (auto) 0.04 K/uL (0.00-0.02); Immature Granulocytes % (auto) 0.3 %; Lymphocytes # (auto) 1.87 K/uL (1.2-3.4); Lymphocytes % (auto) 13.2 %; Monocytes # (auto) 1.06 K/uL (0.11-0.59); Monocytes % (auto) 7.5 %; Neutrophils # (auto) 10.96 K/uL (1.4-6.5); Neutrophils % (auto) 77.6 %
[2021-04-13 22:42] LABS: Alanine Aminotransferase 18 U/L (12-78); Albumin Level 4.3 gm/dl (3.4-5.0); Alkaline Phosphatase 94 U/L (45-117); Aspartate Aminotransferase 9 U/L (15-37); BUN Creatinine Ratio 16.4 (10-20); Bilirubin,Total 0.4 mg/dl (0.2-1); Blood Urea Nitrogen 29 mg/dl (7-18); Calcium 13.5 mg/dl (8.5-10.1); Carbon Dioxide 22 mmol/L (21-32); Chloride 109 mmol/L (98-107); Creatinine Clr Calc Pharmacy 29.8 ml/min; Est GFR (African American) 32.9 ml/min; Est GFR (Non-African American) 28.4 ml/min; Globulin 4.1 gm/dl (2.5-4.0); Glucose 159 mg/dl (70-99); Magnesium 2.7 mg/dl (1.8-2.4); Potassium 3.1 mmol/L (3.5-5.1); Sodium 139 mmol/L (136-145); Total Protein 8.4 gm/dl (6.4-8.2); Troponin I < 0.015 ng/ml (0-0.045)
--- NOTE | 2021-04-13 22:55 | Emergency Department Note ---
Impression & Plan Hypercalcemia, Hypokalemia, Dehydration ED Provider Note NAME: LIAN OLVERA AGE: 75 SEX: F : 1945 ARRIVES VIA: Walk-In INFORMANT: Patient, ED PROVIDER(S): Jorge Quintana MD Chief Complaint: "I do not feel quite right." HPI: Patient does present with the above complaints and states that this is been ongoing just since today. The patient's brother reported noticing that the patient was slurring her words yesterday. The patient denies any headache or neck pain. The patient states that she had a surgery to relieve a history of glaucoma within the right eye it was completed on April [address] Reina. The patient states that she first started noticing the change when she started taking some Diamox which was yesterday. Patient denies any fevers chills chest pains or shortness of breath. The patient denies any numbness tingling or focal weakness. Patient denies any recent falls or trauma. Patient states that she did notice some change in bruising around the right eye. Patient is vaccinated for Covid. Patient has had a fairly normal appetite but is not eating as much today. Patient denies any nausea or vomiting. ROS: See HPI for pertinent positives and negatives. A total of 10 systems were reviewed and otherwise negative. Past medical history: See below Surgical history: See below Social history: See below Physical Exam: GENERAL: Tired in appearance, NAD, wearing glasses, wearing a mask, non-toxic. EYE EXAM: Right eye with subconjunctival hemorrhage and ecchymosis to the inferior lid. No obvious proptosis, extraocular muscles are intact without obvious entrapment. NECK: Supple, no nuchal rigidity, no adenopathy, non-tender. No signs of meningismus. LUNGS: Clear to auscultation. Normal chest wall mechanics. HEART: NSR, no MRG. ABDOMEN: Abdomen soft, non-tender, normo-active bowel sounds, no masses, no rebound or guarding. BACK: No CVA TTP. SKIN: No rashes and no bruising. UPPER EXTREMITIES: Upper extremities are grossly normal. LOWER EXTREMITIES: Grossly normal, no edema. NEURO EXAM: A&O x3, cranial nerves II-XII grossly intact, normal speech, moves all 4 extremities on command w/o issue. Good finger to nose, no drift, no sensory deficits. Differential diagnoses: Infection, dehydration, metabolic abnormality, hypo/hyperglycemia, electrolyte disturbance, anemia, hypoxia, cardiac sources, intracerebral event, toxicologic, neurologic, as well as other pathologies. Course: Patient was seen and evaluated the bedside. Full history physical exam was performed. EKG interpreted by me Sinus, rate 97, normal intervals, left axis deviation, PVC noted. Imaging Studies: See Below Cardiac monitoring: An order was placed for continuous cardiac monitoring. The monitor shows a rate of 95 with sinus rhythm. MDM: Patient was seen for just not feeling well. The patient did have blood work completed which showed hypercalcemia. The patient does take a calcium supplement. The patient was ordered IV fluids. Chest x-ray is clear. CT of the head is negative. I did speak with the on-call hospitalist Dr. Holt. Patient was admitted to the medicine service. Past Med/Surg History Medical History Anxiety Diabetes mellitus, type 2 NIDDM GERD (gastroesophageal reflux disease) Glaucoma History of COVID-19 Dx 07/04/20 ([facility])- hospitalized x 5 days (dry cough, body aches) > resolved Hx of sepsis r/t e. coli (01/2019) Hyperlipidemia Hypertension Morbid obesity with BMI of 45.0-49.9, adult Osteoarthritis Recurrent UTI Sleep apnea CPAP (Follows with Dr. Harris [place]) Ureteral stone Surgical History H/O cystoscopy Cystoscopy, Left ureteronephroscopy, laser stone (05/25/19): LMA#5 at [facility] H/O lithotripsy ESWL (02/12/2019) History of cardiac cath 2007 > no stents History of cataract surgery R/L History of colonoscopy History of dilatation and curettage History of esophagogastroduodenoscopy (EGD) History of herniorrhaphy History of repair of rotator cuff Right History of total knee replacement R/L History of ureter stent Hx of avulsion fracture Left femur ORIF/vannessa Family History Father Diabetes Brother Diabetes Nephrolithiasis Social History Smoking Status: Never smoker Second Hand Exposure: Yes (FATHER SMOKED); Hx Alcohol Use: No Hx Substance Use: No Preferred Language: Serbian Communication Ability: Effective [employer] Supervisor Required: No Beliefs That Will Affect Care: None Current Living Situation: Alone current occupational status: retired Feels Safe at Home: Yes Assistive Devices: Cane, CPAP, Denture - Upper, Denture - Lower and Glasses Allergies Allergies Allergy/AdvReac Type Severity Reaction Status Date / Time lisinopril Allergy Mild Hives, lip Verified 04/13/21 23:47 swelling erythromycin base AdvReac Mild Dyspepsia Verified 04/13/21 23:47 prednisone AdvReac Mild Thrush Verified 04/13/21 23:47 Home Meds Home Medications Medication Instructions Recorded Confirmed amlodipine 5 mg tablet 10 mg PO PM 02/05/19 04/14/21 cholecalciferol (vitamin D3) 25 1,000 unit PO BID 02/05/19 04/14/21 mcg (1,000 unit) capsule (Vitamin D3) cyanocobalamin (vitamin B-12) 500 500 mcg PO QAM 02/05/19 04/14/21 mcg tablet furosemide 20 mg tablet (Lasix) 20 mg PO QAM 02/05/19 04/14/21 gabapentin 100 mg capsule 100 mg PO HS 02/05/19 04/14/21 loratadine 10 mg tablet (Claritin) 10 mg PO QAM 02/05/19 04/14/21 pravastatin 20 mg tablet 20 mg PO QPM 02/05/19 04/14/21 ropinirole 0.5 mg tablet 0.5 mg PO HS 02/05/19 04/14/21 oxybutynin chloride 5 mg tablet 5 mg PO BID 05/03/19 04/14/21 calcium carbonate 200 mg calcium 200 mg PO HS PRN 05/14/19 04/14/21 (500 mg) chewable tablet (Tums) tramadol 50 mg tablet 50 mg PO DAILY PRN 05/14/19 04/14/21 dorzolamide 2 % eye drops 1 drp OPHTHALMIC (EYE) BID 05/25/19 04/14/21 aspirin 81 mg tablet,delayed 81 mg PO QAM 11/14/20 04/14/21 release fluticasone propionate 50 1 spray INTRANASAL QAM 11/14/20 04/14/21 mcg/actuation nasal spray,suspension lorazepam 1 mg tablet 1 mg PO HS PRN 11/14/20 04/14/21 acetaminophen 650 mg 650 mg PO Q8H PRN 04/13/21 04/13/21 tablet,extended release (Tylenol 8 Hour) acetazolamide 250 mg tablet 250 mg PO QID 04/13/21 04/13/21 ascorbic acid (vitamin C) 500 mg 1,000 mg PO DAILY 04/13/21 04/13/21 tablet (Vitamin C) cranberry fruit concentrate 250 mg 250 mg PO DAILY 04/13/21 04/13/21 chewable tablet (Azo Cranberry) docusate sodium 100 mg capsule 100 mg PO BID 04/13/21 04/13/21 glucosamine [id number]-[id number] 1 tab PO DAILY 04/13/21 04/13/21 hyun 1,500 mg-400 unit-100 mg tablet (Osteo Bi-Flex (5-Loxin)) melatonin 5 mg tablet 5 mg PO HS 04/13/21 04/13/21 metformin 1,000 mg tablet 1,000 mg PO BIDM 04/13/21 04/14/21 netarsudil 0.02 % eye drops 1 drp OPB DAILY 04/13/21 04/13/21 (Rhopressa) potassium chloride 10 mEq 10 meq PO DAILY 04/13/21 04/13/21 capsule,extended release prednisolone acetate 1 % eye 1 drp OPR 6XD 04/13/21 04/13/21 drops,suspension timolol 0.5 %-latanoprost 0.005 % 1 drp OPHTHALMIC (EYE) DAILY 04/13/21 04/13/21 (PF) eye drops vitamin E 400 unit capsule 400 unit PO DAILY 04/13/21 04/14/21 Results & Data (ED) Vital Signs Vital Signs - 24 hr 04/13/21 20:18 04/13/21 23:01 04/13/21 23:30 Temperature 36.5 C Temperature Source Temporal Artery Scan Pulse Rate 102 H 94 H 88 Respiratory Rate 16 25 H 22 Blood Pressure 192/98 H 207/96 H 191/94 H Blood Pressure Mean 129 133 126 Pulse Oximetry 96 Oxygen Delivery Method Room Air Sepsis Recent Fever Within 48 Hours No Sepsis New/Unexplained Change in Mental Status No Sepsis Action Taken by Nursing No Action Required 04/14/21 00:00 04/14/21 00:30 Temperature Temperature Source Pulse Rate 93 H 90 Respiratory Rate Blood Pressure Blood Pressure Mean Pulse Oximetry Oxygen Delivery Method Sepsis Recent Fever Within 48 Hours Sepsis New/Unexplained Change in Mental Status Sepsis Action Taken by Alf Medications Current Medication List: was personally reviewed by me Laboratory Data Attestation: I reviewed the patient's lab results. Result diagrams: 04/13/21 21:35 04/13/21 21:35 Lab Results 04/13/21 04/13/21 04/13/21 Range/Units 21:35 21:35 21:35 WBC 14.14 H (4.8-10.8) K/uL RBC 5.04 (4.2-5.4) M/uL Hgb 14.7 (12.0-16.0) g/dL Hct 44.4 (37-47) % MCV 88.1 (80-100) fL MCH 29.2 (25-34) pg MCHC 33.1 (32-36) g/dL RDW Std Deviation 45.7 (36.4-46.3) fL RDW Coeff of Fern 14.2 (11.5-14.5) % Plt Count 236 (130-400) K/uL MPV 10.1 (7.4-10.4) fL Immature Gran % (Auto) 0.3 % Neut % (Auto) 77.6 % Lymph % (Auto) 13.2 % [place] % (Auto) 7.5 % Eos % (Auto) 1.3 % Baso % (Auto) 0.1 % Neut # (Auto) 10.96 H (1.4-6.5) K/uL Lymph # (Auto) 1.87 (1.2-3.4) K/uL [place] # (Auto) 1.06 H (0.11-0.59) K/uL Eos # (Auto) 0.19 (0-0.5) K/uL Baso # (Auto) 0.02 (0-0.2) K/uL Immature Gran # (Auto) 0.04 H (0.00-0.02) K/uL PT 9.9 (9.0-12.0) Seconds INR 1.0 (0.9-1.1) APTT 23.1 (21.0-31.0) Seconds PTT Ratio 0.9 Sodium 139 (136-145) mmol/L Potassium 3.1 L (3.5-5.1) mmol/L Chloride 109 H (98-107) mmol/L Carbon Dioxide 22 (21-32) mmol/L Anion Gap 8.0 (3-11) BUN 29 H (7-18) mg/dl Creatinine 1.74 H (0.6-1.2) mg/dl Est Cr Clr Drug Dosing 29.8 ml/min Est GFR ( Amer) 32.9 ml/min Est GFR (Non-Af Amer) 28.4 ml/min BUN/Creatinine Ratio 16.4 (10-20) Glucose 159 H (70-99) mg/dl Calcium 13.5 H* (8.5-10.1) mg/dl Magnesium 2.7 H (1.8-2.4) mg/dl Total Bilirubin 0.4 (0.2-1) mg/dl AST 9 L (15-37) U/L ALT 18 (12-78) U/L Alkaline Phosphatase 94 (45-117) U/L Troponin I < 0.015 (0-0.045) ng/ml Total Protein 8.4 H (6.4-8.2) gm/dl Albumin 4.3 (3.4-5.0) gm/dl Globulin 4.1 H (2.5-4.0) gm/dl Albumin/Globulin Ratio 1.0 (0.9-2) TSH 1.490 (0.300-4.500) uIu/ml Urine Color Urine Appearance (Clear) Urine pH (4.5-7.5) Ur Specific [place] (1.000-1.030) Urine Protein (Negative) Urine Glucose (UA) (Negative) Urine Ketones (Negative) Urine Blood (Negative) Urine Nitrite (Negative) Urine Bilirubin (Negative) Urine Urobilinogen (Negative) Ur Leukocyte Esterase (Negative) Urine WBC (Auto) (0-5) /hpf Urine RBC (Auto) (0-4) /hpf U Hyaline Cast (Auto) (0-5) /lpf U Epithel Cells (Auto) (0-5) /lpf Urine Bacteria (Auto) (Negative) Urine Opiates Screen (Neg) Ur Methadone, Qual (Neg) Urine Barbiturates (Neg) Ur Phencyclidine (PCP) (Neg) U Amphetamin/Meth Scrn (Neg) MDMA (Ecstasy) Screen (Neg) U Benzodiazepines Scrn (Neg) Ur Cocaine Metabolite (Neg) U Marijuana (THC) Screen (Neg) COVID-19 Eval Order SARS-CoV-2 (PCR) (Negative) 04/13/21 04/13/21 04/14/21 Range/Units 23:12 23:12 00:48 WBC (4.8-10.8) K/uL RBC (4.2-5.4) M/uL Hgb (12.0-16.0) g/dL Hct (37-47) % MCV (80-100) fL MCH (25-34) pg MCHC (32-36) g/dL RDW Std Deviation (36.4-46.3) fL RDW Coeff of Fern (11.5-14.5) % Plt Count (130-400) K/uL MPV (7.4-10.4) fL Immature Gran % (Auto) % Neut % (Auto) % Lymph % (Auto) % [place] % (Auto) % Eos % (Auto) % Baso % (Auto) % Neut # (Auto) (1.4-6.5) K/uL Lymph # (Auto) (1.2-3.4) K/uL [place] # (Auto) (0.11-0.59) K/uL Eos # (Auto) (0-0.5) K/uL Baso # (Auto) (0-0.2) K/uL Immature Gran # (Auto) (0.00-0.02) K/uL PT (9.0-12.0) Seconds INR (0.9-1.1) APTT (21.0-31.0) Seconds PTT Ratio Sodium (136-145) mmol/L Potassium (3.5-5.1) mmol/L Chloride (98-107) mmol/L Carbon Dioxide (21-32) mmol/L Anion Gap (3-11) BUN (7-18) mg/dl Creatinine (0.6-1.2) mg/dl Est Cr Clr Drug Dosing ml/min Est GFR ( Amer) ml/min Est GFR (Non-Af Amer) ml/min BUN/Creatinine Ratio (10-20) Glucose (70-99) mg/dl Calcium (8.5-10.1) mg/dl Magnesium (1.8-2.4) mg/dl Total Bilirubin (0.2-1) mg/dl AST (15-37) U/L ALT (12-78) U/L Alkaline Phosphatase (45-117) U/L Troponin I (0-0.045) ng/ml Total Protein (6.4-8.2) gm/dl Albumin (3.4-5.0) gm/dl Globulin (2.5-4.0) gm/dl Albumin/Globulin Ratio (0.9-2) TSH (0.300-4.500) uIu/ml Urine Color Yellow Urine Appearance Clear (Clear) Urine pH 7.5 (4.5-7.5) Ur Specific [place] 1.008 (1.000-1.030) Urine Protein Negative (Negative) Urine Glucose (UA) Negative (Negative) Urine Ketones Negative (Negative) Urine Blood Negative (Negative) Urine Nitrite Positive A (Negative) Urine Bilirubin Negative (Negative) Urine Urobilinogen Negative (Negative) Ur Leukocyte Esterase 1+ H (Negative) Urine WBC (Auto) 10-30 H (0-5) /hpf Urine RBC (Auto) 0-4 (0-4) /hpf U Hyaline Cast (Auto) 1-5 (0-5) /lpf U Epithel Cells (Auto) 0-5 (0-5) /lpf Urine Bacteria (Auto) 4+ H (Negative) Urine Opiates Screen (Neg) Ur Methadone, Qual (Neg) Urine Barbiturates (Neg) Ur Phencyclidine (PCP) (Neg) U Amphetamin/Meth Scrn (Neg) MDMA (Ecstasy) Screen (Neg) U Benzodiazepines Scrn (Neg) Ur Cocaine Metabolite (Neg) U Marijuana (THC) Screen (Neg) COVID-19 Eval Order Covid19 at [facility] SARS-CoV-2 (PCR) NEGATIVE (Negative) 04/14/21 Range/Units 00:48 WBC (4.8-10.8) K/uL RBC (4.2-5.4) M/uL Hgb (12.0-16.0) g/dL Hct (37-47) % MCV (80-100) fL MCH (25-34) pg MCHC (32-36) g/dL RDW Std Deviation (36.4-46.3) fL RDW Coeff of Fern (11.5-14.5) % Plt Count (130-400) K/uL MPV (7.4-10.4) fL Immature Gran % (Auto) % Neut % (Auto) % Lymph % (Auto) % [place] % (Auto) % Eos % (Auto) % Baso % (Auto) % Neut # (Auto) (1.4-6.5) K/uL Lymph # (Auto) (1.2-3.4) K/uL [place] # (Auto) (0.11-0.59) K/uL Eos # (Auto) (0-0.5) K/uL Baso # (Auto) (0-0.2) K/uL Immature Gran # (Auto) (0.00-0.02) K/uL PT (9.0-12.0) Seconds INR (0.9-1.1) APTT (21.0-31.0) Seconds PTT Ratio Sodium (136-145) mmol/L Potassium (3.5-5.1) mmol/L Chloride (98-107) mmol/L Carbon Dioxide (21-32) mmol/L Anion Gap (3-11) BUN (7-18) mg/dl Creatinine (0.6-1.2) mg/dl Est Cr Clr Drug Dosing ml/min Est GFR ( Amer) ml/min Est GFR (Non-Af Amer) ml/min BUN/Creatinine Ratio (10-20) Glucose (70-99) mg/dl Calcium (8.5-10.1) mg/dl Magnesium (1.8-2.4) mg/dl Total Bilirubin (0.2-1) mg/dl AST (15-37) U/L ALT (12-78) U/L Alkaline Phosphatase (45-117) U/L Troponin I (0-0.045) ng/ml Total Protein (6.4-8.2) gm/dl Albumin (3.4-5.0) gm/dl Globulin (2.5-4.0) gm/dl Albumin/Globulin Ratio (0.9-2) TSH (0.300-4.500) uIu/ml Urine Color Urine Appearance (Clear) Urine pH (4.5-7.5) Ur Specific [place] (1.000-1.030) Urine Protein (Negative) Urine Glucose (UA) (Negative) Urine Ketones (Negative) Urine Blood (Negative) Urine Nitrite (Negative) Urine Bilirubin (Negative) Urine Urobilinogen (Negative) Ur Leukocyte Esterase (Negative) Urine WBC (Auto) (0-5) /hpf Urine RBC (Auto) (0-4) /hpf U Hyaline Cast (Auto) (0-5) /lpf U Epithel Cells (Auto) (0-5) /lpf Urine Bacteria (Auto) (Negative) Urine Opiates Screen Neg (Neg) Ur Methadone, Qual Neg (Neg) Urine Barbiturates Neg (Neg) Ur Phencyclidine (PCP) Neg (Neg) U Amphetamin/Meth Scrn Neg (Neg) MDMA (Ecstasy) Screen Neg (Neg) U Benzodiazepines Scrn Neg (Neg) Ur Cocaine Metabolite Neg (Neg) U Marijuana (THC) Screen Neg (Neg) COVID-19 Eval Order SARS-CoV-2 (PCR) (Negative) Administered Medications Discontinued Medications Sodium Chloride (Nss 1000ml) 1,000 mls @ 999 mls/hr IV .[id number] ONE Stop: 04/14/21 00:06 Last Admin: 04/14/21 00:07 Dose: 999 mls/hr Documented by: [id number] Imaging Data Radiologist's Impression: Chest X-Ray 04/13/21 23:05 SINGLE VIEW CHEST CLINICAL HISTORY: Generalized weakness. FINDINGS: An AP, portable, upright chest radiograph is compared to study dated 11/16/2020. The examination is degraded by portable technique, apical lordotic positioning, and patient rotation. The heart is top normal for projection noting atherosclerotic calcification of the thoracic aorta. The pulmonary vasculature is noncongested. Chronic interstitial thickening is similar to previous. Scarring/atelectasis is seen at the lung bases. No airspace consolidation or large pleural effusion is identified. No pneumothorax is seen. The skeletal structures are osteopenic. The bony thorax is grossly intact. Advanced arthritic change is seen in the shoulders. IMPRESSION: No active disease in the chest. ACT 112: Negative or not required by law. Electronically signed by: Jeremias Soria M.D. 04/14/2021 12:[address] 04/13/21 23:05 CT SCAN OF THE BRAIN WITHOUT IV CONTRAST CLINICAL HISTORY: Slurred speech. COMPARISON STUDY: CT of the brain dated 01/12/2019. TECHNIQUE: Unenhanced axial CT scan of the brain is performed from the vertex to the skull base. A dose lowering technique was utilized adhering to the princip les of SILVA. CT DOSE: 614.27 mGy.cm FINDINGS: Brain parenchyma: There are age-related involutional changes noting mild subcortical and periventricular microangiopathic change. There is no hemorrhage, mass effect, or evidence of acute territorial ischemia by CT criteria. Painting- white matter differentiation is preserved. No extra-axial fluid collection is seen. Ventricles, sulci, cisterns: Prominent secondary to involutional change. Intracranial vasculature: There is atherosclerotic calcification of the cavernous carotid and vertebral arteries. Calvarium: Unremarkable. Sinuses and mastoids: The visualized paranasal sinuses are clear. The mastoid air cells are well pneumatized. Orbits: The bony orbits are grossly intact. Postoperative change is noted involving the right globe. There are bilateral ocular lens implants. IMPRESSION: There is no hemorrhage, mass effect, or evidence of acute territorial ischemia by CT criteria. ACT 112: Negative or not required by law. Electronically signed by: Jeremias Soria M.D. 04/13/2021 11:48 PM Discharge Plan Visit Data Chief Complaint: Lethargic Stated Complaint: lethargic, slow, feels off ED Provider: Jorge Quintana Discharge Problem: Hypercalcemia, Hypokalemia, Dehydration Patient Disposition: Admitted As Inpatient Discharge Instructions Interventions: ED Discharge Assessment Last Done: 04/14/21 01:17
[2021-04-13] MEDS ORDERED: SODIUM CHLORIDE 0.9% 1000ML 1,000 ML IV ONE (23:06)
--- NOTE | 2021-04-13 23:49 | CT Scan Report ---
CT SCAN OF THE BRAIN WITHOUT IV CONTRAST CLINICAL HISTORY: Slurred speech. COMPARISON STUDY: CT of the brain dated 01/12/2019. TECHNIQUE: Unenhanced axial CT scan of the brain is performed from the vertex to the skull base. A do se lowering technique was utilized adhering to the principles of ALARA. CT DOSE: 614.27 mGy.cm FINDINGS: Brain parenchyma: There are age-related involutional changes noting mild subcortical and periventric ular microangiopathic change. There is no hemorrhage, mass effect, or evidence of acute territorial i schemia by CT criteria. Painting-white matter differentiation is preserved. No extra-axial fluid collecti on is seen. Ventricles, sulci, cisterns: Prominent secondary to involutional change. Intracranial vasculature: There is atherosclerotic calcification of the cavernous carotid and vertebr al arteries. Calvarium: Unremarkable. Sinuses and mastoids: The visualized paranasal sinuses are clear. The mastoid air cells are well pneu matized. Orbits: The bony orbits are grossly intact. Postoperative change is noted involving the right globe. There are bilateral ocular lens implants. IMPRESSION: There is no hemorrhage, mass effect, or evidence of acute territorial ischemia by CT crit devendra. ACT 112: Negative or not required by law. Electronically signed by: Jeremias Soria M.D. 04/13/2021 11:48 PM
--- NOTE | 2021-04-14 00:45 | XRay Report ---
SINGLE VIEW CHEST CLINICAL HISTORY: Generalized weakness. FINDINGS: An AP, portable, upright chest radiograph is compared to study dated 11/16/2020. The examina tion is degraded by portable technique, apical lordotic positioning, and patient rotation. The hear t is top normal for projection noting atherosclerotic calcification of the thoracic aorta. The pulmon aubrey vasculature is noncongested. Chronic interstitial thickening is similar to previous. Scarring/ate lectasis is seen at the lung bases. No airspace consolidation or large pleural effusion is identified . No pneumothorax is seen. The skeletal structures are osteopenic. The bony thorax is grossly intact. Advanced arthritic change is seen in the shoulders. IMPRESSION: No active disease in the chest. ACT 112: Negative or not required by law. Electronically signed by: Jeremias Soria M.D. 04/14/2021 12:43 AM
--- NOTE | 2021-04-14 00:50 | History & Physical Report ---
Date of Service April 14, 2021 Assessment & Plan (1) Hypercalcemia: Plan: Serum calcium =13.5. Albumin is normal at 4.3. PO4=4. Patient appears dry on exam. Has had elevated Ca in the past but patient states this has never been addressed with her. Has history of nephrolithiasis - calcium oxalate and calcium apatite stones. She has seen urology for this. She is on Ca supplements as well as Vitamin D Recently started on Acetazolamide which should increase urinary calcium excretion -Observation to medical with telemetry -Check ionized Ca level, PTH, Vitamin D -Hold Ca and Vitamin D supplements -Hydration with NSS at 100mL/hr x 2 liters -Monitor Ca levels (2) Hypokalemia: Plan: Potassium is low at 3.1 -Cautious repletion with RATNA. K 40mEq -Repeat labs (3) Dehydration: Plan: Patient appears dry on exam. Elevation of BUN and Cr, possibly secondary to hypercalcemia -IVF with NSS at 100mL/hr x 2 -Repeat chemistry -Avoid nephrotoxic agents -Renal dosing where needed (4) Diabetes mellitus: Plan: Fairly well controlled. Last [id number]=6.9 on 02/20/21 -Hold Metformin -Lantus 7u BID with ISS -Goal blood sugar 100 - 140 (5) Sleep apnea: Plan: Chronic. Patient states she is compliant with her CPAP -CPAP qHS at 15 cmH2O (6) Hyperlipidemia: Plan: Chronic -Continue Pravastatin 20mg po qPM (7) Hypertension: Plan: Chronic. Elevated. Patient states that her BP is not very well controlled at home. No symptoms -Continue Amlodipine -Continue to monitor (8) Glaucoma: Plan: Patient with recent eye surgery performed at [facility] [address] -Continue Acetazolamide -Continue Prednisolone, Dorzolamide, TImolol/Latanoprost (9) UTI (urinary tract infection): Plan: +UA. Possibly contributing to confusion -Follow culture -Ceftriaxone 2gm IV daily for uncomplicated UTI Plan: F/E/N - NSS at 100mL/hr x 2 liters, Ca workup as above, K repletion, AHA/CC diet as tolerated Ppx - Code - Full per discussion with patient Dispo - Observation to medical with telemetry History of Present Illness Chief Complaint: confusion Primary Care Provider: Tiara Parikh Shawanda Emelia is a 75yo female with multiple medical problems to include DM, HTN, HLP and SUZANNA presenting with confusion and slurred speech. Patient's neighbor states that patient was sleeping in her car and was slightly disoriented. Patient also complaining of worsening fatigue. Symptoms have been ongoing x 2 days. No additional complaints. Specifically denies fever, chills, malaise, chest pain, palpitations, cough, SOB, abdominal pain, nausea, vomiting, diarrhea or constipation, dysuria Workup reveals Ca of 13.5. Recently started on Acetazolamide on 04/09/21 for management of Glaucoma Patient had recent eye surgery ER Course: NSS x 1 liter Allergies Allergy/AdvReac Type Severity Reaction Status Date / Time lisinopril Allergy Mild Hives, lip Verified 04/13/21 23:47 swelling erythromycin base AdvReac Mild Dyspepsia Verified 04/13/21 23:47 prednisone AdvReac Mild Thrush Verified 04/13/21 23:47 Home Medications Medication Instructions Recorded Confirmed Type amlodipine 5 mg tablet 10 mg PO PM 02/05/19 04/14/21 History cholecalciferol (vitamin D3) 25 1,000 unit PO BID 02/05/19 04/14/21 History mcg (1,000 unit) capsule (Vitamin D3) cyanocobalamin (vitamin B-12) 500 500 mcg PO QAM 02/05/19 04/14/21 History mcg tablet furosemide 20 mg tablet (Lasix) 20 mg PO QAM 02/05/19 04/14/21 History gabapentin 100 mg capsule 100 mg PO HS 02/05/19 04/14/21 History loratadine 10 mg tablet (Claritin) 10 mg PO QAM 02/05/19 04/14/21 History pravastatin 20 mg tablet 20 mg PO QPM 02/05/19 04/14/21 History ropinirole 0.5 mg tablet 0.5 mg PO HS 02/05/19 04/14/21 History oxybutynin chloride 5 mg tablet 5 mg PO BID 05/03/19 04/14/21 History calcium carbonate 200 mg calcium 200 mg PO HS PRN 05/14/19 04/14/21 History (500 mg) chewable tablet (Tums) tramadol 50 mg tablet 50 mg PO DAILY PRN 05/14/19 04/14/21 History dorzolamide 2 % eye drops 1 drp OPHTHALMIC (EYE) BID 05/25/19 04/14/21 History aspirin 81 mg tablet,delayed 81 mg PO QAM 11/14/20 04/14/21 History release fluticasone propionate 50 1 spray INTRANASAL QAM 11/14/20 04/14/21 History mcg/actuation nasal spray,suspension lorazepam 1 mg tablet 1 mg PO HS PRN 11/14/20 04/14/21 History acetaminophen 650 mg 650 mg PO Q8H PRN 04/13/21 04/13/21 History tablet,extended release (Tylenol 8 Hour) acetazolamide 250 mg tablet 250 mg PO QID 04/13/21 04/13/21 History ascorbic acid (vitamin C) 500 mg 1,000 mg PO DAILY 04/13/21 04/13/21 History tablet (Vitamin C) cranberry fruit concentrate 250 mg 250 mg PO DAILY 04/13/21 04/13/21 History chewable tablet (Azo Cranberry) docusate sodium 100 mg capsule 100 mg PO BID 04/13/21 04/13/21 History glucosamine [id number] 1 tab PO DAILY 04/13/21 04/13/21 History hyun 1,500 mg-400 unit-100 mg tablet (Osteo Bi-Flex (5-Loxin)) melatonin 5 mg tablet 5 mg PO HS 04/13/21 04/13/21 History metformin 1,000 mg tablet 1,000 mg PO BIDM 04/13/21 04/14/21 History netarsudil 0.02 % eye drops 1 drp OPB DAILY 04/13/21 04/13/21 History (Rhopressa) potassium chloride 10 mEq 10 meq PO DAILY 04/13/21 04/13/21 History capsule,extended release prednisolone acetate 1 % eye 1 drp OPR 6XD 04/13/21 04/13/21 History drops,suspension timolol 0.5 %-latanoprost 0.005 % 1 drp OPHTHALMIC (EYE) DAILY 04/13/21 04/13/21 History (PF) eye drops vitamin E 400 unit capsule 400 unit PO DAILY 04/13/21 04/14/21 History Past Med/Surg History Medical History (Updated 04/14/21 @ 05:32 by Steffi Holt DO) Anxiety Diabetes mellitus, type 2 NIDDM GERD (gastroesophageal reflux disease) Glaucoma History of COVID-19 Dx 07/04/20 ([facility])- hospitalized x 5 days (dry cough, body aches) > resolved Hx of sepsis r/t e. coli (01/2019) Hyperlipidemia Hypertension Morbid obesity with BMI of 45.0-49.9, adult Osteoarthritis Recurrent UTI Sleep apnea CPAP (Follows with Luz Marina Mcmullen) Ureteral stone Surgical History H/O cystoscopy Cystoscopy, Left ureteronephroscopy, laser stone (05/25/19): LMA#5 at [facility] H/O lithotripsy ESWL (02/12/2019) History of cardiac cath 2007 > no stents History of cataract surgery R/L History of colonoscopy History of dilatation and curettage History of esophagogastroduodenoscopy (EGD) History of herniorrhaphy History of repair of rotator cuff Right History of total knee replacement R/L History of ureter stent Hx of avulsion fracture Left femur ORIF/vannessa Family History Father Diabetes Brother Diabetes Nephrolithiasis Social History Smoking Status: Never smoker Second Hand Exposure: Yes (FATHER SMOKED); Do You Dip or Chew Tobacco: No; Hx Alcohol Use: No Hx Substance Use: No Preferred Language: Kiswahili Communication Ability: Effective Product Test Specialist Required: No Beliefs That Will Affect Care: None Current Living Situation: Alone current occupational status: retired Other Information That Helps Us Care for You: No Feels Safe at Home: Yes Safety Concerns: Feels Safe At This Time Assistive Devices: Cane, Denture - Upper, Denture - Lower and Glasses Review of Systems Review of Systems: All systems reviewed & are unremarkable except as noted in HPI & below Physical Exam Physical Exam: General: patient resting comfortably, NAD, non-toxic in appearance, AA&O x 4 Skin: warm, dry, intact, no rashes or lesions HEENT: NC/AT, PERRL, EOMI, bruising of right eye post-op, anicteric sclera, conjunctiva without injection, external ear normal to inspection and nontender, nares patent, DRY mucus membranes, dentition intact, no oropharyngeal lesions, neck supple, trachea midline, no LAD, no thyromegaly, no JVD Heart: +S1/S2, regular, no m/r/g Lungs: equal air entry bilaterally, no rales/rhonchi/wheezes Abd: +BS, soft, NT/ND, no masses/organomegaly/ascites Ext: warm, 2+ pulses in UE/LE bilaterally, no clubbing/cyanosis, 3+ pitting edema of LLE Neuro: nonfocal, patient AA&O x 4, speech intact, no facial droop, moving all extremities on command with equal strength 5/5 Results & Data Results & Data ([facility]) Vital Signs (Past 12 Hours) Vital Signs Temp Pulse Resp BP Pulse Ox 04/13/21 23:01 94 H 25 H 207/96 H 04/13/21 20:18 36.5 C 102 H 16 192/98 H 96 Laboratory Results Laboratory Results WBC 14.14 K/uL (4.8-10.8) H 04/13/21 21:35 RBC 5.04 M/uL (4.2-5.4) 04/13/21 21:35 Hgb 14.7 g/dL (12.0-16.0) 04/13/21 21:35 Hct 44.4 % (37-47) 04/13/21 21:35 MCV 88.1 fL (80-100) 04/13/21 21:35 MCH 29.2 pg (25-34) 04/13/21 21:35 MCHC 33.1 g/dL (32-36) 04/13/21 21:35 RDW Std Deviation 45.7 fL (36.4-46.3) 04/13/21 21:35 RDW Coeff of Fern 14.2 % (11.5-14.5) 04/13/21 21:35 Plt Count 236 K/uL (130-400) 04/13/21 21:35 MPV 10.1 fL (7.4-10.4) 04/13/21 21:35 Immature Gran % (Auto) 0.3 % 04/13/21 21:35 Neut % (Auto) 77.6 % 04/13/21 21:35 Lymph % (Auto) 13.2 % 04/13/21 21:35 [place] % (Auto) 7.5 % 04/13/21 21:35 Eos % (Auto) 1.3 % 04/13/21 21:35 Baso % (Auto) 0.1 % 04/13/21 21:35 Neut # (Auto) 10.96 K/uL (1.4-6.5) H 04/13/21 21:35 Lymph # (Auto) 1.87 K/uL (1.2-3.4) 04/13/21 21:35 [place] # (Auto) 1.06 K/uL (0.11-0.59) H 04/13/21 21:35 Eos # (Auto) 0.19 K/uL (0-0.5) 04/13/21 21:35 Baso # (Auto) 0.02 K/uL (0-0.2) 04/13/21 21:35 Immature Gran # (Auto) 0.04 K/uL (0.00-0.02) H 04/13/21 21:35 PT 9.9 Seconds (9.0-12.0) 04/13/21 21:35 INR 1.0 (0.9-1.1) 04/13/21 21:35 APTT 23.1 Seconds (21.0-31.0) 04/13/21 21:35 PTT Ratio 0.9 04/13/21 21:35 Sodium 139 mmol/L (136-145) 04/13/21 21:35 Potassium 3.1 mmol/L (3.5-5.1) L 04/13/21 21:35 Chloride 109 mmol/L (98-107) H 04/13/21 21:35 Carbon Dioxide 22 mmol/L (21-32) 04/13/21 21:35 Anion Gap 8.0 (3-11) 04/13/21 21:35 BUN 29 mg/dl (7-18) H 04/13/21 21:35 Creatinine 1.74 mg/dl (0.6-1.2) H 04/13/21 21:35 Est Cr Clr Drug Dosing 29.8 ml/min 04/13/21 21:35 Est GFR ( Amer) 32.9 ml/min 04/13/21 21:35 Est GFR (Non-Af Amer) 28.4 ml/min 04/13/21 21:35 BUN/Creatinine Ratio 16.4 (10-20) 04/13/21 21:35 Glucose 159 mg/dl (70-99) H 04/13/21 21:35 POC Glucose 138 mg/dl (70-99) H 04/14/21 01:46 Calcium 13.5 mg/dl (8.5-10.1) H* 04/13/21 21:35 Phosphorus 4.0 mg/dl (2.5-4.9) 04/13/21 21:35 Magnesium 2.7 mg/dl (1.8-2.4) H 04/13/21 21:35 Total Bilirubin 0.4 mg/dl (0.2-1) 04/13/21 21:35 AST 9 U/L (15-37) L 04/13/21 21:35 ALT 18 U/L (12-78) 04/13/21 21:35 Alkaline Phosphatase 94 U/L (45-117) 04/13/21 21:35 Troponin I < 0.015 ng/ml (0-0.045) 04/13/21 21:35 Total Protein 8.4 gm/dl (6.4-8.2) H 04/13/21 21:35 Albumin 4.3 gm/dl (3.4-5.0) 04/13/21 21:35 Globulin 4.1 gm/dl (2.5-4.0) H 04/13/21 21:35 Albumin/Globulin Ratio 1.0 (0.9-2) 04/13/21 21:35 25-OH Vitamin D Total ng/ml (30-100) 04/13/21 21:35 TSH 1.490 uIu/ml (0.300-4.500) 04/13/21 21:35 Urine Color Yellow 04/14/21 00:48 Urine Appearance Clear (Clear) 04/14/21 00:48 Urine pH 7.5 (4.5-7.5) 04/14/21 00:48 Ur Specific [place] 1.008 (1.000-1.030) 04/14/21 00:48 Urine Protein Negative (Negative) 04/14/21 00:48 Urine Glucose (UA) Negative (Negative) 04/14/21 00:48 Urine Ketones Negative (Negative) 04/14/21 00:48 Urine Blood Negative (Negative) 04/14/21 00:48 Urine Nitrite Positive (Negative) A 04/14/21 00:48 Urine Bilirubin Negative (Negative) 04/14/21 00:48 Urine Urobilinogen Negative (Negative) 04/14/21 00:48 Ur Leukocyte Esterase 1+ (Negative) H 04/14/21 00:48 Urine WBC (Auto) 10-30 /hpf (0-5) H 04/14/21 00:48 Urine RBC (Auto) 0-4 /hpf (0-4) 04/14/21 00:48 U Hyaline Cast (Auto) 1-5 /lpf (0-5) 04/14/21 00:48 U Epithel Cells (Auto) 0-5 /lpf (0-5) 04/14/21 00:48 Urine Bacteria (Auto) 4+ (Negative) H 04/14/21 00:48 Urine Opiates Screen Neg (Neg) 04/14/21 00:48 Ur Methadone, Qual Neg (Neg) 04/14/21 00:48 Urine Barbiturates Neg (Neg) 04/14/21 00:48 Ur Phencyclidine (PCP) Neg (Neg) 04/14/21 00:48 U Amphetamin/Meth Scrn Neg (Neg) 04/14/21 00:48 MDMA (Ecstasy) Screen Neg (Neg) 04/14/21 00:48 U Benzodiazepines Scrn Neg (Neg) 04/14/21 00:48 Ur Cocaine Metabolite Neg (Neg) 04/14/21 00:48 U Marijuana (THC) Screen Neg (Neg) 04/14/21 00:48 COVID-19 Eval Order Covid19 at [facility] 04/13/21 23:12 SARS-CoV-2 (PCR) NEGATIVE (Negative) 04/13/21 23:12 Impressions Chest X-Ray 04/13/21 23:05 SINGLE VIEW CHEST CLINICAL HISTORY: Generalized weakness. FINDINGS: An AP, portable, upright chest radiograph is compared to study dated 11/16/2020. The examination is degraded by portable technique, apical lordotic positioning, and patient rotation. The heart is top normal for projection noting atherosclerotic calcification of the thoracic aorta. The pulmonary vasculature is noncongested. Chronic interstitial thickening is similar to previous. Scarring/atelectasis is seen at the lung bases. No airspace consolidation or large pleural effusion is identified. No pneumothorax is seen. The skeletal structures are osteopenic. The bony thorax is grossly intact. Advanced arthritic change is seen in the shoulders. IMPRESSION: No active disease in the chest. ACT 112: Negative or not required by law. Electronically signed by: Jeremias Soria M.D. 04/14/2021 12:[address] 04/13/21 23:05 CT SCAN OF THE BRAIN WITHOUT IV CONTRAST CLINICAL HISTORY: Slurred speech. COMPARISON STUDY: CT of the brain dated 01/12/2019. TECHNIQUE: Unenhanced axial CT scan of the brain is performed from the vertex to the skull base. A dose lowering technique was utilized adhering to the principles of ALARA. CT DOSE: 614.27 mGy.cm FINDINGS: Brain parenchyma: There are age-related involutional changes noting mild subcortical and periventricular microangiopathic change. There is no hemorrhage, mass effect, or evidence of acute territorial ischemia by CT criteria. Painting- white matter differentiation is preserved. No extra-axial fluid collection is seen. Ventricles, sulci, cisterns: Prominent secondary to involutional change. Intracranial vasculature: There is atherosclerotic calcification of the cavernous carotid and vertebral arteries. Calvarium: Unremarkable. Sinuses and mastoids: The visualized paranasal sinuses are clear. The mastoid air cells are well pneumatized. Orbits: The bony orbits are grossly intact. Postoperative change is noted involving the right globe. There are bilateral ocular lens implants. IMPRESSION: There is no hemorrhage, mass effect, or evidence of acute territorial ischemia by CT criteria. ACT 112: Negative or not required by law. Electronically signed by: Jeremias Soria M.D. 04/13/2021 11:48 PM PG Care Time/CCT Total # of Minutes Spent Total Time Spent with Patient: Total time spent is greater than 50% in coordination of care (as documented) at patient's floor/unit and/or counseling patient: Coding Level of Care Code INT OBSERVATION CARE 70M LVL 3 Diagnoses Hypercalcemia E83.52 Hypokalemia E87.6 Dehydration E86.0 Diabetes mellitus E11.9 Sleep apnea G47.30 Hyperlipidemia E78.5 Hypertension I10 Glaucoma H40.9 UTI (urinary tract infection) N39.0
[2021-04-14 01:23] LABS: Appearance Urine Clear (Clear); Bacteria Urine Automated 4+ (Negative); Bilirubin Urine Negative (Negative); Blood Urine Negative (Negative); Color Urine Yellow; Epithelial Cell Urine Auto 0-5 /lpf (0-5); Glucose Urine UA Negative (Negative); Ketones Urine Negative (Negative); Leukocyte Esterase Urine 1+ (Negative); Nitrite Urine Positive (Negative); Protein Urine Negative (Negative); RBC Urine Automated 0-4 /hpf (0-4); Specific Gravity Urine 1.008 (1.000-1.030); Urobilinogen Urine Negative (Negative); pH Urine 7.5 (4.5-7.5)
[2021-04-14 01:37] LABS: Amphetamines+Metham, Urine Neg (Neg); Barbiturates, Urine Neg (Neg); Benzodiazepine, Urine Neg (Neg); Cocaine, Urine Neg (Neg); MDMA (Ecstacy), Urine Neg (Neg); Methadone, Urine Neg (Neg); Opiate, Urine Neg (Neg); Phencyclidine, Urine Neg (Neg)
[2021-04-14] MEDS ORDERED: traMADol HCL 50 MG TABLET PO PRN (01:46)
[2021-04-14] MEDS ORDERED: ONDANSETRON INJ 2 MG/ML 2 ML VIAL IV PRN (01:46)
[2021-04-14] MEDS ORDERED: CARBOHYDRATES FOR HYPOGLYCEMIA PO PRN (01:46)
[2021-04-14] MEDS ORDERED: GLUCOSE 40% GEL 15 GM TUBE PO PRN (01:46)
[2021-04-14] MEDS ORDERED: GLUCAGON FOR INJ 1 MG VIAL SQ PRN (01:46)
[2021-04-14] MEDS ORDERED: ACETAMINOPHEN 325 MG TAB PO PRN (01:46)
[2021-04-14] MEDS ORDERED: DEXTROSE 50% 50 ML SYRINGE IV PRN (01:46)
[2021-04-14] MEDS ORDERED: GLUCOSE 10 TABS/TUBE PO PRN (01:46)
[2021-04-14] MEDS ORDERED: MELATONIN 3 MG TAB PO PRN (01:56)
[2021-04-14] MEDS ORDERED: LORazepam 1 MG TAB PO PRN (01:58)
[2021-04-14] MEDS: SODIUM CHLORIDE 0.9% 1000ML 1,000 ML IV SCH ×2 (02:25→12:22)
[2021-04-14] MEDS: RHOPRESSA~ORDER AWAITING ACTION SCH ×2 (02:38→07:31)
[2021-04-14] MEDS ORDERED: POTASSIUM CHLORIDE CRTAB 20 MEQ TABCR PO STA (05:29)
[2021-04-14] MEDS: cefTRIAXone SODIUM 2,000 MG in DEXTROSE 5% 50 ML IV SCH (06:38)
[2021-04-14] MEDS: prednisoLONE acetate 1% OP SUSP 5 ML BTL OPR SCH ×6 (06:41→22:16)
[2021-04-14] MEDS: DOCUSATE SODIUM 100 MG CAP PO SCH ×2 (08:15→21:54)
[2021-04-14] MEDS: OXYBUTYNIN CHLORIDE 5 MG TAB PO SCH ×2 (08:15→21:42)
[2021-04-14] MEDS: LORATADINE 10 MG TAB PO SCH (08:16)
[2021-04-14] MEDS: FLUTICASONE PROPIONATE NA SPR 16 GM BTL SCH (08:16)
[2021-04-14] MEDS: ASPIRIN 81 MG ECTAB PO SCH (08:16)
[2021-04-14] MEDS: INSULIN GLARGINE SOLOSTAR 100 UNITS/ML 3 ML PEN SC SCH ×2 (08:16→21:46)
[2021-04-14] MEDS: acetaZOLAMIDE 250 MG TAB PO SCH ×4 (08:16→21:41)
[2021-04-14] MEDS: DORZOLAMIDE HCL 2% OPH SOLN 10 ML BTL OP SCH ×2 (08:16→21:49)
[2021-04-14] MEDS: INSULIN ASPART 100 UNITS/ML 3 ML PEN SC SCH ×4 (08:17→21:46)
--- NOTE | 2021-04-14 09:55 | Electrocardiogram Report ---
Test Reason : Blood Pressure : / mmHG Vent. Rate : 097 BPM Atrial Rate : 097 BPM P-R Int : 152 ms QRS Dur : 086 ms QT Int : 342 ms P-R-T Axes : 056 -04 054 degrees QTc Int : 434 ms Poor data quality, interpretation may be adversely affected Sinus rhythm with occasional Premature ventricular complexes Low voltage QRS Septal infarct , age undetermined Abnormal ECG When compared with ECG of 25-MAY-2019 14:27, Premature ventricular complexes are now Present Septal infarct is now Present Confirmed by Dav Warner ([id number]) on 04/14/2021 9:54:42 AM Referred By: REFERRED SELF Confirmed By:Dav Warner
[2021-04-14 18:02] LABS: Hematocrit (blood only) 43.2 % (37-47); Hemoglobin 14.1 g/dL (12.0-16.0); Mean Corpuscular Hgb Conc 32.6 g/dL (32-36); Mean Corpuscular Volume 88.7 fL (80-100); Platelet Count 239 K/uL (130-400); RDW Coefficient of Variation 14.7 % (11.5-14.5); Red Blood Count 4.87 M/uL (4.2-5.4); White Blood Count 13.27 K/uL (4.8-10.8)
[2021-04-14 18:23] LABS: BUN Creatinine Ratio 16.7 (10-20); Creatinine Clr Calc Pharmacy 32.2 ml/min; Est GFR (African American) 35.9 ml/min; Est GFR (Non-African American) 30.9 ml/min; Potassium 3.4 mmol/L (3.5-5.1)
[2021-04-14] MEDS ORDERED: rOPINIRole HCL 0.25 MG TABLET PO SCH (21:00)
[2021-04-14] MEDS ORDERED: NEOMYCIN SCH (21:00)
[2021-04-14] MEDS ORDERED: PRAVASTATIN SOD 20 MG TAB PO SCH (21:00)
[2021-04-14] MEDS ORDERED: GABAPENTIN 100 MG CAP PO SCH (21:00)
[2021-04-14] MEDS ORDERED: amLODIPine BESYLATE 5 MG TAB PO SCH (21:00)
[2021-04-14] MEDS ORDERED: POLYMYXIN B SCH (21:00)
[2021-04-14] MEDS ORDERED: NETARSUDIL 0.02% OP SCH (21:00)
[2021-04-14] MEDS ORDERED: DEXAMETHASONE SCH (21:00)
[2021-04-15] MEDS: cefTRIAXone SODIUM 2,000 MG in DEXTROSE 5% 50 ML IV SCH (05:33)
[2021-04-15 06:23] LABS: Basophils # (auto) 0.03 K/uL (0-0.2); Basophils % (auto) 0.3 %; Eosinophils # (auto) 0.35 K/uL (0-0.5); Hematocrit (blood only) 39.5 % (37-47); Hemoglobin 12.9 g/dL (12.0-16.0); Immature Granulocytes # (auto) 0.01 K/uL (0.00-0.02); Immature Granulocytes % (auto) 0.1 %; Lymphocytes # (auto) 1.65 K/uL (1.2-3.4); Lymphocytes % (auto) 18.7 %; Mean Corpuscular Hgb Conc 32.7 g/dL (32-36); Mean Corpuscular Volume 88.8 fL (80-100); Mean Platelet Volume 10.8 fL (7.4-10.4); Monocytes # (auto) 0.66 K/uL (0.11-0.59); Monocytes % (auto) 7.5 %; Neutrophils # (auto) 6.11 K/uL (1.4-6.5); Neutrophils % (auto) 69.4 %; Platelet Count 215 K/uL (130-400); RDW Coefficient of Variation 14.8 % (11.5-14.5); RDW Standard Deviation 48.4 fL (36.4-46.3); Red Blood Count 4.45 M/uL (4.2-5.4); White Blood Count 8.81 K/uL (4.8-10.8)
[2021-04-15] MEDS: prednisoLONE acetate 1% OP SUSP 5 ML BTL OPR SCH ×4 (06:40→16:54)
[2021-04-15 06:51] LABS: BUN Creatinine Ratio 17.5 (10-20); Calcium 10.5 mg/dl (8.5-10.1); Creatinine Clr Calc Pharmacy 37.5 ml/min; Est GFR (African American) 43.2 ml/min; Est GFR (Non-African American) 37.2 ml/min; Potassium 3.1 mmol/L (3.5-5.1)
[2021-04-15] MEDS: DORZOLAMIDE HCL 2% OPH SOLN 10 ML BTL OP SCH (08:16)
[2021-04-15] MEDS: FLUTICASONE PROPIONATE NA SPR 16 GM BTL SCH (08:16)
[2021-04-15] MEDS: ASPIRIN 81 MG ECTAB PO SCH (08:16)
[2021-04-15] MEDS: acetaZOLAMIDE 250 MG TAB PO SCH ×3 (08:16→16:54)
[2021-04-15] MEDS: OXYBUTYNIN CHLORIDE 5 MG TAB PO SCH (08:16)
[2021-04-15] MEDS: DOCUSATE SODIUM 100 MG CAP PO SCH (08:16)
[2021-04-15] MEDS: LORATADINE 10 MG TAB PO SCH (08:16)
[2021-04-15] MEDS: INSULIN ASPART 100 UNITS/ML 3 ML PEN SC SCH ×3 (08:17→16:54)
[2021-04-15] MEDS: INSULIN GLARGINE SOLOSTAR 100 UNITS/ML 3 ML PEN SC SCH (08:17)
[2021-04-15] MEDS ORDERED: LATANOPROST 0.005% OP SOLN 2.5 ML BTL OP SCH (09:00)
[2021-04-15] MEDS: POTASSIUM CHLORIDE 40 MEQ in SODIUM CHLORIDE 0.45 % 1,000 ML IV SCH ×2 (09:19→16:49)
--- NOTE | 2021-04-15 15:38 | Discharge Summary ---
Date of Service April 15, 2021 Admission HPI Per Admitting Provider Shawanda Kapoor is a 75yo female with multiple medical problems to include DM, HTN, HLP and SUZANNA presenting with confusion and slurred speech. Patient's neighbor states that patient was sleeping in her car and was slightly disoriented. Patient also complaining of worsening fatigue. Symptoms have been ongoing x 2 days. No additional complaints. Specifically denies fever, chills, malaise, chest pain, palpitations, cough, SOB, abdominal pain, nausea, vomiting, diarrhea or constipation, dysuria Workup reveals Ca of 13.5. Recently started on Acetazolamide on 04/09/21 for management of Glaucoma Patient had recent eye surgery ER Course: NSS x 1 liter Principal Diagnosis hypercalcemia likely iatrogenic Discharge Exam General: patient resting comfortably, NAD, non-toxic in appearance, AA&O x 4 Skin: warm, dry, intact, no rashes or lesions HEENT: NC/AT, PERRL, EOMI, bruising of right eye post-op, anicteric sclera, conjunctiva without injection, external ear normal to inspection and nontender, nares patent, DRY mucus membranes, dentition intact, no oropharyngeal lesions, neck supple, trachea midline, no LAD, no thyromegaly, no JVD Heart: +S1/S2, regular, no m/r/g Lungs: equal air entry bilaterally, no rales/rhonchi/wheezes Abd: +BS, soft, NT/ND, no masses/organomegaly/ascites Ext: warm, 2+ pulses in UE/LE bilaterally, no clubbing/cyanosis, 3+ pitting edema of LLE Neuro: nonfocal, patient AA&O x 4, speech intact, no facial droop, moving all extremities on command with equal strength 5/5 Discharge Data Allergies Allergy/AdvReac Type Severity Reaction Status Date / Time lisinopril Allergy Mild Hives, lip Verified 04/13/21 23:47 swelling erythromycin base AdvReac Mild Dyspepsia Verified 04/13/21 23:47 prednisone AdvReac Mild Thrush Verified 04/13/21 23:47 Consultations 04/13/21 23:14 ED Decision to Admit Stat Ordered Studies 04/13/21 23:05 CT head/brain wo con Stat Hospital Course (1) Hypercalcemia: Serum calcium =13.5. Albumin is normal at 4.3. PO4=4. Patient appears dry on exam. Has had elevated Ca in the past but patient states this has never been addressed with her. Has history of nephrolithiasis - calcium oxalate and calcium apatite stones. She has seen urology for this. She is on Ca supplements as well as Vitamin D Recently started on Acetazolamide which should increase urinary calcium excretion -Observation to medical with telemetry -Checkedionized Ca level, PTH, Vitamin D -Hold Ca and Vitamin D supplements On discharge: Levels improved. Patient RATNA also improved. Patient will be discharged, recommend close followup of her calcium levels. Patient will hold calcium and vitamin d supplements. Due to patient being in RATNA, will hold lasix at discharge until seen by PCP. (2) Hypokalemia: Potassium is low at 3.1 -Cautious repletion with RATNA. K 40mEq -Repeat labs (3) Dehydration: Patient appears dry on exam. Elevation of BUN and Cr, possibly secondary to hypercalcemia -IVF with NSS at 100mL/hr x 2 -Repeat chemistry -Avoid nephrotoxic agents -Renal dosing where needed (4) Diabetes mellitus: Fairly well controlled. Last [id number]=1.9 on 02/20/21 -Hold Metformin -Lantus 7u BID with ISS -Goal blood sugar 100 - 140 (5) Sleep apnea: Chronic. Patient states she is compliant with her CPAP -CPAP qHS at 15 cmH2O (6) Hyperlipidemia: Chronic -Continue Pravastatin 20mg po qPM (7) Hypertension: Chronic. Elevated. Patient states that her BP is not very well controlled at home. No symptoms -Continue Amlodipine -Continue to monitor (8) Glaucoma: Patient with recent eye surgery performed at [facility] -Continue Acetazolamide -Continue Prednisolone, Dorzolamide, TImolol/Latanoprost (9) UTI (urinary tract infection): +UA. Possibly contributing to confusion -Follow culture -Ceftriaxone 2gm IV daily for uncomplicated UTI F/E/N - NSS at 100mL/hr x 2 liters, Ca workup as above, K repletion, AHA/CC diet as tolerated Ppx - Code - Full per discussion with patient Total Time Total Time Spent Total Time Spent (In Minutes): 32 Discharge Plan Discharge Items Patient Disposition: Home - Self-Care Reason For Visit: HYPERCALCEMIA Discharge Diagnosis: hypercalcemia Activity: Resume your previous activity Non-emergency contact: Primary Care Provider Call non-emergency contact if: you have any medication questions Follow-up/Referrals: Tiara Parikh [Primary Care Provider] - (Please call your primary care doctor to schedule a follow up appointment.) Diet: Carb Consistent or DM2 and Heart Healthy Addtl Attending Provider Instructions: You have been hospitalized for an acute medical problem. During your stay at [facility], we have made an effort to correct the problem that brought you to the hospital while keeping you as comfortable as possible. Medications were used to bring your condition under control and your discharge instructions will include directions for any medications you should take after leaving the hospital. Please make sure you see your Primary Care Provider as part of your follow up plan. Hold calcium and recheck levels in 1-2 weeks. Will defer to PCP. Please followup with PCP in 1-2 weeks Pending Studies at Discharge: No Stand-Alone Forms: [facility], Smoking Cessation Medications and DC Order Prescriptions: Continued amlodipine 5 mg Tablet 10 mg PO PM RF: 0 cyanocobalamin (vitamin B-12) 500 mcg Tablet 500 mcg PO QAM RF: 0 ropinirole 0.5 mg Tablet 0.5 mg PO HS RF: 0 pravastatin 20 mg Tablet 20 mg PO QPM RF: 0 gabapentin 100 mg Capsule 100 mg PO HS RF: 0 loratadine [Claritin] 10 mg Tablet 10 mg PO QAM RF: 0 cholecalciferol (vitamin D3) [Vitamin D3] 1,000 unit Capsule 1,000 unit PO BID RF: 0 oxybutynin chloride 5 mg Tablet 5 mg PO BID RF: 0 tramadol 50 mg Tablet 50 mg PO DAILY PRN (Reason: Pain) RF: 0 dorzolamide 2 % Drops 1 drp OPHTHALMIC (EYE) BID RF: 0 lorazepam 1 mg Tablet 1 mg PO HS PRN (Reason: Sleep) RF: 0 fluticasone propionate 50 mcg/actuation [place],Suspension 1 spray INTRANASAL QAM RF: 0 aspirin 81 mg Tablet,Delayed Release (Dr/Ec) 81 mg PO QAM RF: 0 acetazolamide 250 mg Tablet 250 mg PO QID RF: 0 acetaminophen [Tylenol 8 Hour] 650 mg Tablet Extended Release 650 mg PO Q8H PRN (Reason: Pain) RF: 0 prednisolone acetate 1 % drops,suspension 1 drp OPR 6XD RF: 0 ascorbic acid (vitamin C) [Vitamin C] 500 mg Tablet 1,000 mg PO DAILY RF: 0 metformin 1,000 mg Tablet 1,000 mg PO BIDM RF: 0 docusate sodium 100 mg Capsule 100 mg PO BID RF: 0 vitamin E 400 unit Capsule 400 unit PO DAILY RF: 0 melatonin 5 mg Tablet 5 mg PO HS RF: 0 lucsawvplal-O3-Lwimkclyj serr [Osteo Bi-Flex (5-Loxin)] 1,500-400-100 mg-unit-mg Tablet 1 tab PO DAILY RF: 0 Azo Cranberry 250 mg Tablet,Chewable 250 mg PO DAILY RF: 0 Rhopressa 0.02 % Drops 1 drp OPB DAILY RF: 0 timolol-latanoprost(PF) 0.5-0.005 % Drops 1 drp ophthalmic (eye) DAILY RF: 0 Discontinued furosemide [Lasix] 20 mg Tablet 20 mg PO QAM RF: 0 calcium carbonate [Tums] 200 mg calcium (500 mg) Tablet,Chewable 200 mg PO HS PRN (Reason: Indigestion) RF: 0 potassium chloride 10 mEq Capsule, Extended Release 10 meq PO DAILY RF: 0 Discharge Orders: Discharge Order (Routine); Ordered 04/15/21 Ordered By: Demetris Acosta Admission Data Admit Date/Time: 04/14/21 00:50 Attending Provider: Demetris Acosta Admit Provider: Steffi Holt Primary Care Provider: Tiara Parikh Other Providers: Steffi Holt Other Interventions: Discharge Summary Assessment (RN) Last Done: 04/15/21 15:34 Coding Level of Care Code 43182 OBS Care - Discharge Diagnoses Hypercalcemia E83.52 Hypokalemia E87.6 Dehydration E86.0 Diabetes mellitus E11.9 Sleep apnea G47.30 Hyperlipidemia E78.5 Hypertension I10 Glaucoma H40.9 UTI (urinary tract infection) N39.0
[2021-04-15 15:58] LABS: BUN Creatinine Ratio 16.8 (10-20); Calcium 10.5 mg/dl (8.5-10.1); Creatinine Clr Calc Pharmacy 37.5 ml/min; Est GFR (African American) 43.2 ml/min; Est GFR (Non-African American) 37.2 ml/min; Potassium 3.8 mmol/L (3.5-5.1)
== END 2021-04-15 18:40 | disposition home or self-care (01) ==
LOC: 2W 20:13 → ED 20:13 → SUATTDRO 04-14 00:50 → 2W 04-14 01:17
DX: E87.6 Hypokalemia; E11.9 Type 2 diabetes mellitus without complications; Z99.89 Dependence on other enabling machines and devices; I10 Essential (primary) hypertension; Z20.822 Contact with and (suspected) exposure to COVID-19; E86.0 Dehydration; G47.33 Obstructive sleep apnea (adult) (pediatric); Z79.84 Long term (current) use of oral hypoglycemic drugs; N39.0 Urinary tract infection, site not specified; Z79.52 Long term (current) use of systemic steroids; E83.52 Hypercalcemia; E78.5 Hyperlipidemia, unspecified; Z88.8 Allergy status to other drugs, medicaments and biological substances; Z88.1 Allergy status to other antibiotic agents